=== PATIENT | male | born 1985 | race Caucasian/White ===

== ENCOUNTER 2020-02-07 11:45 | Inpatient (IN) | payer OTHER ==
[2020-02-07] MEDS ORDERED: IBUPROFEN 400 MG TABLET (FP) PO PRN (12:30)
[2020-02-07] MEDS ORDERED: LOPERAMIDE HCL 2 MG CAPSULE PO PRN (12:30)
[2020-02-07] MEDS ORDERED: ACETAMINOPHEN 325 MG TABLET (FP) PO PRN (12:30)
[2020-02-07] MEDS ORDERED: guaiFENesin 200 MG/10 ML 10 ML UNIT-DOSE CUPS PO PRN (12:30)
[2020-02-07] MEDS ORDERED: P-EPHED 60MG/TRIPROLIDI 2.5MG TABLET PO PRN (12:30)
[2020-02-07] MEDS ORDERED: NICOTINE POLACRILEX 2 MG GUM BUC PRN (12:30)
[2020-02-07] MEDS ORDERED: MAG HYDROX/AL HYDROX/SIMETH 30 ML UNIT-DOSE CUP PO PRN (12:30)
[2020-02-07] MEDS ORDERED: MAGNESIUM CITRATE 300 ML BOTTLE PO PRN (12:30)
[2020-02-07] MEDS ORDERED: MAGNESIUM HYDROX 2400MG/30ML ORAL SUSPENSION 30 ML CUP PO PRN (12:30)
--- NOTE | 2020-02-07 12:30 | HP ---
[facility] Rehab Assess/Revision - Admission History Admitted to Rehab from: [facility] Date of Admission to Rehab: 02/07/20 - Findings Detox History & Physical reviewed: Yes Concur with findings: Yes Comments/Additional Findings: trasnferred from detox to rehab admission as per protocol Inpatient Rehab Admission - Rehab Decision to Admit Inpatient rehab admission?: Yes - Initial Determination Are CD services needed?: Yes Free of communicable disease: Yes Not in need of hospitalization: Yes - Rehab Admission Criteria Previous failed treatment: Yes Poor recovery environment: Yes Comorbidities: Yes Lacks judgement: Yes Patient is meeting Inpatient Rehab admission criteria:: Yes
[2020-02-07] MEDS: THIAMINE HCL 100 MG TABLET (FP) PO SCH (21:50)
[2020-02-07] MEDS: GABAPENTIN 400 MG CAPSULE PO SCH (21:50)
[2020-02-07] MEDS: MELATONIN 5 MG TABLETS PO SCH (21:51)
[2020-02-08] MEDS: METHADONE HCL 10 MG TABLET PO SCH (06:12)
[2020-02-08] MEDS: GABAPENTIN 400 MG CAPSULE PO SCH ×2 (06:13→13:42)
[2020-02-08] MEDS: PRENATAL VITAMINS W/ FOLIC ACID TABLET (FP) PO SCH (10:25)
[2020-02-08] MEDS: NICOTINE 7 MG/24 HOURS TOPICAL PATCH TD SCH (10:26)
--- NOTE | 2020-02-08 17:23 | CONSULT ---
[facility] Psychiatric Consult - Data Date of interview: 02/08/20 Admission source: Transfer from [address] [place] [address]. Identifying data: Detoxification completed at [address] [place] [address]. Patient is now admitted to [address] for rehabilitation treatment for preservation of sobriety + management of co-morbid mood disorder. KARINA issues : alcohol, cocaine, benzodiazepine (xanax), nicotine. Patient is a 34 y/o male, single, father of one, homeless, unemployed and supported on undisclosed means. Substance Abuse History: Discussed with the patient. KARINA profile as follows : Smoking history: Current every day smoker. Approximately how many cigarettes per day: 5. Hx Chewing Tobacco Use: No. Initiated information on smoking cessation: No. - Substances abused. Alcohol. Substance route: Oral. Frequency: Daily. Amount used: 4-5 nips. Age of first use: 17. Date of last use: 02/02/20. Heroin. Substance route: Injection. Frequency: Daily. Amount used: 4-5 bags. Age of first use: 23. Date of last use: 02/02/20. Alprazolam (Xanax). Substance route: Oral. Frequency: Daily. Amount used: 4-5 sticks. Age of first use: 17. Date of last use: 02/02/20. Cocaine. Substance route: Inhalation. Frequency: Daily. Amount used: $40. Age of first use: 18. Date of last use: 02/01/20 Medical History: Patient endorses good general health. Psychiatric History: No change in longitudinal history since my examination of 02/06/20. Patient admits to a long standing history of mental illness (multiple psychiatric hospitalizations in [facility]). He is also known to [facility] for past admissions to their inpatient psychiatric services. Mr Adams endorses MDD + Anxiety disorder as his lifetime diagnoses. He is currently on methadone maintenance (110 mg/day) at the [facility] MMTP program in [facility]. The patient is concomitantly receiving psychiatric OPD care at [facility] in the [place] (prescribed clonazepam + gabapentin + effexor). He indicates that he has no recall of his doses (except for gabapentin 600 mg/tid). Last hospitalized in December 2019. Patient denies history of suicide attempts. Physical/Sexual Abuse/Trauma History: Patient denies. Additional Comment: Urine drug screen results: THC-Marijuana, SAMUEL-Cocaine, FEN- Fentanyl, MOP-Opiates, MTD-Methadone, BZO-Benzodiazepines. Noted. Mental Status Exam - Mental Status Exam Alert and Oriented to: Time, Place, Person Cognitive Function: Good Patient Appearance: Well Groomed Mood: Anxious, Hopeful Affect: Appropriate, Normal Range Patient Behavior: Appropriate, Cooperative Speech Pattern: Clear, Appropriate Voice Loudness: Normal Thought Process: Intact Thought Disorder: Not Present Hallucinations: Denies Suicidal Ideation: Denies Homicidal Ideation: Denies Insight/Judgement: Poor Sleep: Well Appetite: Good Gait/Station: Normal Psychiatric Findings - Problem List ([place] 1, 2,3) (1) Alcohol use disorder Current Visit: Yes Status: Chronic (2) Opioid dependence on agonist therapy Current Visit: Yes Status: Chronic (3) Cocaine use disorder Current Visit: Yes Status: Chronic (4) Nicotine dependence Current Visit: Yes Status: Chronic Qualifiers: Nicotine product type: cigarettes Substance use status: in withdrawal Qualified Code(s): F17.213 - Nicotine dependence, cigarettes, with withdrawal (5) History of depression Current Visit: Yes Status: Chronic (6) Anxiety disorder Current Visit: Yes Status: Chronic Comment: As per self-report. (7) Substance induced mood disorder Current Visit: Yes Status: Chronic - Initial Treatment Plan Initial Treatment Plan: Psychoeducation and rehabilitation. Sleep hygiene. Gabapentin is titrated to 600 mg po tid at patient's request. Consent (verbal) granted to MD. Slater.
[2020-02-08] MEDS: THIAMINE HCL 100 MG TABLET (FP) PO SCH (21:41)
[2020-02-08] MEDS: hydrOXYzine PAMOATE 25 MG CAPSULE (FP) PO PRN (21:41)
[2020-02-08] MEDS: GABAPENTIN 300 MG CAPSULE PO SCH (21:42)
[2020-02-08] MEDS: MELATONIN 5 MG TABLETS PO SCH (21:42)
[2020-02-09] MEDS ORDERED: METHADONE HCL 10 MG TABLET ONE (06:32)
[2020-02-09] MEDS: METHADONE 80 MG, METHADONE 30 MG PO SCH (06:32)
[2020-02-09] MEDS ORDERED: METHADONE HCL 40 MG DISPERSABLE TABLET ONE (06:32)
[2020-02-09] MEDS: hydrOXYzine PAMOATE 25 MG CAPSULE (FP) PO PRN ×4 (06:34→21:26)
[2020-02-09] MEDS: GABAPENTIN 300 MG CAPSULE PO SCH ×3 (06:34→21:26)
[2020-02-09] MEDS: METHADONE HCL 10 MG TABLET PO SCH (06:36)
[2020-02-09] MEDS: PRENATAL VITAMINS W/ FOLIC ACID TABLET (FP) PO SCH (10:51)
[2020-02-09] MEDS: NICOTINE 7 MG/24 HOURS TOPICAL PATCH TD SCH (10:51)
[2020-02-09] MEDS: THIAMINE HCL 100 MG TABLET (FP) PO SCH (21:26)
[2020-02-09] MEDS: MELATONIN 5 MG TABLETS PO SCH (21:26)
[2020-02-10] MEDS ORDERED: METHADONE HCL 40 MG DISPERSABLE TABLET ONE (03:31)
[2020-02-10] MEDS ORDERED: METHADONE HCL 10 MG TABLET ONE (03:31)
[2020-02-10] MEDS: METHADONE 80 MG, METHADONE 30 MG PO SCH (06:14)
[2020-02-10] MEDS: GABAPENTIN 300 MG CAPSULE PO SCH ×3 (06:14→21:07)
[2020-02-10] MEDS: hydrOXYzine PAMOATE 25 MG CAPSULE (FP) PO PRN ×3 (06:16→14:25)
[2020-02-10] MEDS: PRENATAL VITAMINS W/ FOLIC ACID TABLET (FP) PO SCH (10:08)
[2020-02-10] MEDS: NICOTINE 7 MG/24 HOURS TOPICAL PATCH TD SCH (10:08)
[2020-02-10] MEDS: MELATONIN 5 MG TABLETS PO SCH (21:07)
[2020-02-10] MEDS: THIAMINE HCL 100 MG TABLET (FP) PO SCH (21:07)
[2020-02-11] MEDS ORDERED: METHADONE HCL 10 MG TABLET ONE (03:26)
[2020-02-11] MEDS ORDERED: METHADONE HCL 40 MG DISPERSABLE TABLET ONE (03:26)
[2020-02-11] MEDS: hydrOXYzine PAMOATE 25 MG CAPSULE (FP) PO PRN ×3 (06:09→21:18)
[2020-02-11] MEDS: GABAPENTIN 300 MG CAPSULE PO SCH ×3 (06:10→21:17)
[2020-02-11] MEDS: METHADONE 80 MG, METHADONE 30 MG PO SCH (06:13)
[2020-02-11] MEDS: PRENATAL VITAMINS W/ FOLIC ACID TABLET (FP) PO SCH (09:12)
[2020-02-11] MEDS: NICOTINE 7 MG/24 HOURS TOPICAL PATCH TD SCH (09:12)
[2020-02-11] MEDS: MELATONIN 5 MG TABLETS PO SCH (21:17)
[2020-02-11] MEDS: THIAMINE HCL 100 MG TABLET (FP) PO SCH (21:17)
[2020-02-12] MEDS ORDERED: METHADONE HCL 40 MG DISPERSABLE TABLET ONE (03:26)
[2020-02-12] MEDS ORDERED: METHADONE HCL 10 MG TABLET ONE (03:26)
[2020-02-12] MEDS: GABAPENTIN 300 MG CAPSULE PO SCH ×3 (06:00→21:38)
[2020-02-12] MEDS: hydrOXYzine PAMOATE 25 MG CAPSULE (FP) PO PRN ×2 (06:00→21:39)
[2020-02-12] MEDS: METHADONE 80 MG, METHADONE 30 MG PO SCH (06:00)
[2020-02-12] MEDS: NICOTINE 7 MG/24 HOURS TOPICAL PATCH TD SCH (09:21)
[2020-02-12] MEDS: PRENATAL VITAMINS W/ FOLIC ACID TABLET (FP) PO SCH (09:21)
[2020-02-12] MEDS: MELATONIN 5 MG TABLETS PO SCH (21:38)
[2020-02-12] MEDS: THIAMINE HCL 100 MG TABLET (FP) PO SCH (21:38)
[2020-02-13] MEDS ORDERED: METHADONE HCL 10 MG TABLET ONE (05:58)
[2020-02-13] MEDS ORDERED: METHADONE HCL 40 MG DISPERSABLE TABLET ONE (05:58)
[2020-02-13] MEDS: GABAPENTIN 300 MG CAPSULE PO SCH ×3 (06:03→21:41)
[2020-02-13] MEDS: METHADONE 80 MG, METHADONE 30 MG PO SCH (06:04)
[2020-02-13] MEDS: hydrOXYzine PAMOATE 25 MG CAPSULE (FP) PO PRN ×4 (06:04→21:41)
[2020-02-13] MEDS: NICOTINE 7 MG/24 HOURS TOPICAL PATCH TD SCH (10:12)
[2020-02-13] MEDS: PRENATAL VITAMINS W/ FOLIC ACID TABLET (FP) PO SCH (10:12)
[2020-02-13] MEDS: MELATONIN 5 MG TABLETS PO SCH (21:40)
[2020-02-13] MEDS: THIAMINE HCL 100 MG TABLET (FP) PO SCH (21:41)
[2020-02-14] MEDS ORDERED: METHADONE HCL 40 MG DISPERSABLE TABLET ONE (05:44)
[2020-02-14] MEDS ORDERED: METHADONE HCL 10 MG TABLET ONE (05:44)
[2020-02-14] MEDS: GABAPENTIN 300 MG CAPSULE PO SCH ×3 (05:56→22:37)
[2020-02-14] MEDS: hydrOXYzine PAMOATE 25 MG CAPSULE (FP) PO PRN ×3 (05:57→13:17)
[2020-02-14] MEDS: METHADONE 80 MG, METHADONE 30 MG PO SCH (05:57)
[2020-02-14] MEDS: NICOTINE 7 MG/24 HOURS TOPICAL PATCH TD SCH (09:37)
[2020-02-14] MEDS: PRENATAL VITAMINS W/ FOLIC ACID TABLET (FP) PO SCH (09:37)
[2020-02-14] MEDS: THIAMINE HCL 100 MG TABLET (FP) PO SCH (22:37)
[2020-02-14] MEDS: MELATONIN 5 MG TABLETS PO SCH (22:37)
[2020-02-15] MEDS ORDERED: METHADONE HCL 10 MG TABLET ONE (03:25)
[2020-02-15] MEDS ORDERED: METHADONE HCL 40 MG DISPERSABLE TABLET ONE (03:25)
[2020-02-15] MEDS: METHADONE 80 MG, METHADONE 30 MG PO SCH (05:55)
[2020-02-15] MEDS: GABAPENTIN 300 MG CAPSULE PO SCH ×3 (06:05→21:18)
[2020-02-15] MEDS: PRENATAL VITAMINS W/ FOLIC ACID TABLET (FP) PO SCH (10:05)
[2020-02-15] MEDS: NICOTINE 7 MG/24 HOURS TOPICAL PATCH TD SCH (10:05)
[2020-02-15] MEDS: hydrOXYzine PAMOATE 25 MG CAPSULE (FP) PO PRN ×2 (10:05→21:18)
[2020-02-15] MEDS: MELATONIN 5 MG TABLETS PO SCH (21:18)
[2020-02-15] MEDS: THIAMINE HCL 100 MG TABLET (FP) PO SCH (21:18)
[2020-02-16] MEDS ORDERED: METHADONE HCL 40 MG DISPERSABLE TABLET ONE (04:03)
[2020-02-16] MEDS ORDERED: METHADONE HCL 10 MG TABLET ONE (04:03)
[2020-02-16] MEDS: GABAPENTIN 300 MG CAPSULE PO SCH ×3 (06:13→21:30)
[2020-02-16] MEDS: METHADONE 80 MG, METHADONE 30 MG PO SCH (06:14)
[2020-02-16] MEDS: PRENATAL VITAMINS W/ FOLIC ACID TABLET (FP) PO SCH (09:14)
[2020-02-16] MEDS: hydrOXYzine PAMOATE 25 MG CAPSULE (FP) PO PRN ×3 (09:14→21:30)
[2020-02-16] MEDS: NICOTINE 7 MG/24 HOURS TOPICAL PATCH TD SCH (09:15)
[2020-02-16] MEDS: MELATONIN 5 MG TABLETS PO SCH (21:30)
[2020-02-16] MEDS: THIAMINE HCL 100 MG TABLET (FP) PO SCH (21:30)
[2020-02-17] MEDS ORDERED: METHADONE HCL 40 MG DISPERSABLE TABLET ONE (02:32)
[2020-02-17] MEDS ORDERED: METHADONE HCL 10 MG TABLET ONE (02:32)
[2020-02-17] MEDS: GABAPENTIN 300 MG CAPSULE PO SCH ×3 (06:06→21:30)
[2020-02-17] MEDS: METHADONE 80 MG, METHADONE 30 MG PO SCH (06:07)
[2020-02-17] MEDS: NICOTINE 7 MG/24 HOURS TOPICAL PATCH TD SCH (10:37)
[2020-02-17] MEDS: PRENATAL VITAMINS W/ FOLIC ACID TABLET (FP) PO SCH (10:37)
[2020-02-17] MEDS: hydrOXYzine PAMOATE 25 MG CAPSULE (FP) PO PRN ×3 (10:38→21:30)
[2020-02-17] MEDS: MELATONIN 5 MG TABLETS PO SCH (21:30)
[2020-02-17] MEDS: THIAMINE HCL 100 MG TABLET (FP) PO SCH (21:30)
[2020-02-18] MEDS ORDERED: METHADONE HCL 10 MG TABLET ONE (04:02)
[2020-02-18] MEDS ORDERED: METHADONE HCL 40 MG DISPERSABLE TABLET ONE (04:03)
[2020-02-18] MEDS: GABAPENTIN 300 MG CAPSULE PO SCH ×3 (06:06→21:43)
[2020-02-18] MEDS: METHADONE 80 MG, METHADONE 30 MG PO SCH (06:07)
[2020-02-18] MEDS: NICOTINE 7 MG/24 HOURS TOPICAL PATCH TD SCH (10:29)
[2020-02-18] MEDS: hydrOXYzine PAMOATE 25 MG CAPSULE (FP) PO PRN ×3 (10:29→21:43)
[2020-02-18] MEDS: PRENATAL VITAMINS W/ FOLIC ACID TABLET (FP) PO SCH (10:29)
--- NOTE | 2020-02-18 16:07 | PN ---
Psychiatric Progress Note Vital Signs: Vital Signs Period Temp Pulse Resp BP Sys/Quiñones Pulse Ox Last 24 Hr 97.8 F 77 18 125/81 95-96 Date of Session: 02/18/20 Chief Complaint:: "I'm sleeping poorly." HPI: Patient admitted to for alcohol, cocaine, benzodiazepine (xanax), nicotine dependence. Consultation ordered due to patient c/o difficulty sleeping. ROS: Patient is ambulatory, alert +oriented X3. Current Medications: Active Medications Generic Name Dose Route Start Last Admin Trade Name Freq PRN Reason Stop Dose Admin Acetaminophen 650 mg 02/07/20 12:30 02/08/20 23:32 Tylenol - PO 650 mg Q4H PRN Administration FEVER Al Hydroxide/Mg Hydroxide 30 ml 02/07/20 12:30 Mylanta Oral Suspension - PO Q6H PRN DYSPEPSIA Gabapentin 600 mg 02/08/20 22:00 02/18/20 14:31 Neurontin - PO 600 mg TID JORY Administration Guaifenesin 10 ml 02/07/20 12:30 Robitussin - PO Q6H PRN COUGH Hydroxyzine Pamoate 25 mg 02/08/20 11:28 02/18/20 14:31 Vistaril - PO 25 mg Q4H PRN Administration ANXIETY Ibuprofen 400 mg 02/07/20 12:30 Motrin - PO Q6H PRN Pain level 4-6 Loperamide HCl 4 mg 02/07/20 12:30 Imodium - PO Q6H PRN DIARRHEA Magnesium Citrate 300 ml 02/07/20 12:30 Citroma - PO Q48H PRN CONSTIPATION Magnesium Hydroxide 30 ml 02/07/20 12:30 Milk Of Magnesia - PO DAILY PRN CONSTIPATION Melatonin 5 mg 02/07/20 22:00 02/17/20 21:30 Melatonin PO 5 mg HS JORY Administration Methadone HCl 80 mg/ Methadone 110 mg 02/16/20 06:00 02/18/20 06:07 HCl 30 mg PO 02/23/20 05:59 110 mg DAILY@0600 JORY Administration Nicotine 7 mg 02/08/20 10:00 02/18/20 10:29 Nicoderm Patch - TD Not Given DAILY JORY Nicotine Polacrilex 2 mg 02/07/20 12:30 Nicorette Gum - BUC Q2H PRN NICOTINE REPLACEMENT RX Multivit/Folic Acid/Iron 1 tab 02/08/20 10:00 02/18/20 10:29 Vitamins (Sjr) - PO 1 tab DAILY JORY Administration Pseudoephedrine/Triprolidine 1 combo 02/07/20 12:30 Actifed - PO TID PRN NASAL CONGESTION Thiamine HCl 100 mg 02/07/20 22:00 02/17/20 21:30 Vitamin B1 - PO 100 mg HS JORY Administration Medication(s) Change(s): Yes. Will order belsomra 15mg HS. Current Side Effect: No Lab tests ordered: No Lab tests reviewed: Yes Provider note:: Chart reviewed. Patient seen by Dr. Tijerina. Dr. Tijerina note read and appreciated. Patient reports poor sleep. Will order Belsomra 15mg HS PRN. Patient also educated on the importance of proper sleep hygiene. Patient satisifed and receptive to feedback. Benefits and side effects of medication discussed. Verbal consent given. Total face to face time:: 20 Mental Status Exam - Mental Status Exam Alert and Oriented to: Time, Place, Person Cognitive Function: Good Patient Appearance: Well Groomed Mood: Hopeful Affect: Appropriate Patient Behavior: Appropriate, Cooperative Speech Pattern: Appropriate Voice Loudness: Normal Thought Process: Goal Oriented Thought Disorder: Not Present Hallucinations: Denies Suicidal Ideation: Denies Homicidal Ideation: Denies Insight/Judgement: Poor Sleep: Poorly Appetite: Fair Muscle strength/Tone: Normal Gait/Station: Normal Psychiatric Treatment Plan - Problem List (1) Alcohol use disorder Comment: .. (2) History of depression Comment: .. (3) Insomnia Comment: .. (4) Opioid dependence on agonist therapy Comment: .. (5) Cocaine use disorder Comment: .. (6) Nicotine dependence Qualifiers: Nicotine product type: cigarettes Substance use status: uncomplicated Qualified Code(s): F17.210 - Nicotine dependence, cigarettes, uncomplicated Comment: ..
[2020-02-18] MEDS: THIAMINE HCL 100 MG TABLET (FP) PO SCH (21:43)
[2020-02-18] MEDS: MELATONIN 5 MG TABLETS PO SCH (21:44)
[2020-02-18] MEDS: SUVOREXANT 15 MG TABLET PO PRN (21:45)
[2020-02-19] MEDS ORDERED: METHADONE HCL 10 MG TABLET ONE (05:55)
[2020-02-19] MEDS ORDERED: METHADONE HCL 40 MG DISPERSABLE TABLET ONE (05:55)
[2020-02-19] MEDS: GABAPENTIN 300 MG CAPSULE PO SCH ×3 (06:09→21:49)
[2020-02-19] MEDS: METHADONE 80 MG, METHADONE 30 MG PO SCH (06:10)
[2020-02-19] MEDS: NICOTINE 7 MG/24 HOURS TOPICAL PATCH TD SCH (10:30)
[2020-02-19] MEDS: PRENATAL VITAMINS W/ FOLIC ACID TABLET (FP) PO SCH (10:30)
[2020-02-19] MEDS: hydrOXYzine PAMOATE 25 MG CAPSULE (FP) PO PRN ×3 (10:30→21:50)
[2020-02-19] MEDS: MELATONIN 5 MG TABLETS PO SCH (21:49)
[2020-02-19] MEDS: THIAMINE HCL 100 MG TABLET (FP) PO SCH (21:50)
[2020-02-19] MEDS: SUVOREXANT 15 MG TABLET PO PRN (21:50)
[2020-02-20] MEDS ORDERED: METHADONE HCL 40 MG DISPERSABLE TABLET ONE (03:26)
[2020-02-20] MEDS ORDERED: METHADONE HCL 10 MG TABLET ONE (03:26)
[2020-02-20] MEDS: GABAPENTIN 300 MG CAPSULE PO SCH ×3 (05:57→21:23)
[2020-02-20] MEDS: METHADONE 80 MG, METHADONE 30 MG PO SCH (05:58)
[2020-02-20] MEDS: PRENATAL VITAMINS W/ FOLIC ACID TABLET (FP) PO SCH (10:10)
[2020-02-20] MEDS: hydrOXYzine PAMOATE 25 MG CAPSULE (FP) PO PRN (10:10)
[2020-02-20] MEDS: NICOTINE 7 MG/24 HOURS TOPICAL PATCH TD SCH (10:10)
[2020-02-20] MEDS: SUVOREXANT 15 MG TABLET PO PRN (21:24)
[2020-02-20] MEDS: MELATONIN 5 MG TABLETS PO SCH (21:24)
[2020-02-20] MEDS: THIAMINE HCL 100 MG TABLET (FP) PO SCH (21:26)
[2020-02-21] MEDS ORDERED: METHADONE HCL 40 MG DISPERSABLE TABLET ONE (03:21)
[2020-02-21] MEDS ORDERED: METHADONE HCL 10 MG TABLET ONE (03:21)
[2020-02-21] MEDS: GABAPENTIN 300 MG CAPSULE PO SCH ×3 (06:12→21:28)
[2020-02-21] MEDS: METHADONE 80 MG, METHADONE 30 MG PO SCH (06:12)
[2020-02-21] MEDS: PRENATAL VITAMINS W/ FOLIC ACID TABLET (FP) PO SCH (10:20)
[2020-02-21] MEDS: NICOTINE 7 MG/24 HOURS TOPICAL PATCH TD SCH (10:20)
[2020-02-21] MEDS: hydrOXYzine PAMOATE 25 MG CAPSULE (FP) PO PRN ×2 (10:20→21:28)
--- NOTE | 2020-02-21 11:20 | PN ---
[facility] Progress Note Note: Psychiatric nurse practitioner note: Belsomra 15mg HS renewed X3 days. Verbal consent given.
--- NOTE | 2020-02-21 14:35 | PN ---
[facility] Progress Note Note: Psychiatric nurse practitioner note: Patient scheduled for discharge tomorrow (02/22/20). A 30 day prescription of Gabapentin 600mg TID was electronically sent to [facility] @ [facility] [id number].
[2020-02-21] MEDS: MELATONIN 5 MG TABLETS PO SCH (21:28)
[2020-02-21] MEDS: THIAMINE HCL 100 MG TABLET (FP) PO SCH (21:28)
[2020-02-21] MEDS ORDERED: SUVOREXANT 15 MG TABLET PO PRN (22:00)
[2020-02-22] MEDS ORDERED: METHADONE HCL 10 MG TABLET ONE (05:13)
[2020-02-22] MEDS ORDERED: METHADONE HCL 40 MG DISPERSABLE TABLET ONE (05:13)
[2020-02-22] MEDS: GABAPENTIN 300 MG CAPSULE PO SCH (06:24)
[2020-02-22] MEDS: METHADONE 80 MG, METHADONE 30 MG PO SCH (06:25)
[2020-02-22 07:36] VITALS: BP 125/82; PULSE 68; TEMP 97.7
--- NOTE | 2020-02-22 09:31 | DS ---
[facility] Rehab Discharge Summary - [facility] Rehab Discharge Summary Admission Date: 02/07/20 Discharge Date: 02/22/20 - History Present History: Alcohol dependence, Cocaine dependence, MMTP, Sedative dependence Pertinent Past History: Mood disorder - Discharge Physical Exam Vital Signs: Vital Signs Temperature 97.7 F 02/22/20 07:34 Pulse Rate 68 02/22/20 07:34 Respiratory Rate 18 02/22/20 07:34 Blood Pressure 125/82 02/22/20 07:34 O2 Sat by Pulse Oximetry (%) 95 02/22/20 07:34 General:WDWN male, alert o x 3, cardiac:s1 s2, rrr lungs:ctab MSK:Active FROM,all limbs; oob ambulates with steady gait Skin: Pertinent Admission Physical Exam Findings: S/P Detox Unremarkable - Treatment Discharge Condition: Discharge condition good, Rehabilitated safely, Responded well, Outpatient referral accepted Hospital Course: CD aftercare referral accepted to [facility] - Medication Discharge Medications: Ambulatory Orders Methadone [Dolophine -] 110 mg PO DAILY 02/02/20 Gabapentin 400 mg PO TID 02/07/20 Gabapentin 600 mg PO TID #90 tablet 02/21/20 - Medication-Assisted Treatment (MAT) Medication-Assisted Treatment (MAT): No - Discharge Instructions Diet, activity, other medical instructions: Diet:Regular Activity: oob ad adan Other medical instructions:follow up with CD aftercare as directed. Follow up with your primary care provider(s) at [place], [place]. - Diagnosis (1) Sedative, hypnotic or anxiolytic dependence, uncomplicated Status: Chronic (2) Alcohol use disorder Status: Chronic (3) Cocaine use disorder Status: Chronic (4) Methadone maintenance therapy patient Status: Chronic (5) Nicotine dependence Status: Chronic Qualifiers: Nicotine product type: cigarettes Substance use status: uncomplicated Qualified Code(s): F17.210 - Nicotine dependence, cigarettes, uncomplicated - Follow-up Referral Minutes to complete discharge: 25 - AMA Did Patient Leave Against Medical Advice: No
[2020-02-22] MEDS: PRENATAL VITAMINS W/ FOLIC ACID TABLET (FP) PO SCH (10:40)
[2020-02-22] MEDS: NICOTINE 7 MG/24 HOURS TOPICAL PATCH TD SCH (10:40)
[2020-02-22] MEDS: hydrOXYzine PAMOATE 25 MG CAPSULE (FP) PO PRN (10:40)
== END 2020-02-22 10:50 | disposition home or self-care (01) | DRG 772 ==
LOC: YASAS 11:45 → Y5N 11:46
PROVIDERS: ADMIT Allergy & Immunology; ATTEND Allergy & Immunology
PROC: HZ42ZZZ Group Counseling for Substance Abuse Treatment, Cognitive-Behavioral (ICD-10-PCS; principal; 2020-02-07)
DX: F10.20 Alcohol dependence, uncomplicated (principal); F14.20 Cocaine dependence, uncomplicated; F13.20 Sedative, hypnotic or anxiolytic dependence, uncomplicated; F11.20 Opioid dependence, uncomplicated; F17.210 Nicotine dependence, cigarettes, uncomplicated; F19.24 Other psychoactive substance dependence with psychoactive substance-induced mood disorder; F41.9 Anxiety disorder, unspecified; F32.9 Major depressive disorder, single episode, unspecified; Z88.0 Allergy status to penicillin; Z56.0 Unemployment, unspecified; Z59.0 Homelessness

== ENCOUNTER 2020-12-07 23:31 | Inpatient (IN) | payer OTHER ==
[2020-12-08] MEDS ORDERED: MAGNESIUM CITRATE 300 ML BOTTLE PO PRN (00:58)
[2020-12-08] MEDS ORDERED: ACETAMINOPHEN 325 MG TABLET (FP) PO PRN ×2 (00:58)
[2020-12-08] MEDS ORDERED: MAGNESIUM HYDROX 2400MG/30ML ORAL SUSPENSION 30 ML CUP PO PRN (00:58)
[2020-12-08] MEDS ORDERED: ONDANSETRON *ODT* 4 MG TABLET SL PRN (00:58)
[2020-12-08] MEDS ORDERED: NALOXONE (NARCAN) HCL 4 MG/0.1 ML SPRAY NS PRN (00:58)
[2020-12-08] MEDS ORDERED: IBUPROFEN 400 MG TABLET (FP) PO PRN (00:58)
[2020-12-08] MEDS ORDERED: NALOXONE HCL 0.4 MG/ML VIAL IM PRN (00:58)
[2020-12-08] MEDS ORDERED: DICYCLOMINE HCL 10 MG CAPSULE PO PRN (00:58)
[2020-12-08] MEDS ORDERED: P-EPHED 60MG/TRIPROLIDI 2.5MG TABLET PO PRN (00:58)
[2020-12-08] MEDS ORDERED: guaiFENesin 200 MG/10 ML 10 ML UNIT-DOSE CUPS PO PRN (00:58)
[2020-12-08] MEDS ORDERED: MENTHOL/PHENOL 1 EACH UD MM PRN (00:58)
[2020-12-08] MEDS ORDERED: BISMUTH SUBSALICYLATE 524 MG/30 ML PO PRN (00:58)
[2020-12-08] MEDS ORDERED: MAG HYDROX/AL HYDROX/SIMETH 30 ML UNIT-DOSE CUP PO PRN (00:58)
[2020-12-08 02:19] VITALS: BMI 30.3
[2020-12-08] MEDS ORDERED: IBUPROFEN 400 MG TABLET (FP) PO ONE (02:45)
[2020-12-08] MEDS ORDERED: diazePAM 5 MG TABLET ONE (09:03)
[2020-12-08] MEDS ORDERED: METHOCARBAMOL 500 MG TABLET ONE (09:08)
[2020-12-08] MEDS: diazePAM 5 MG TABLET PO PRN (09:08)
[2020-12-08] MEDS: METHOCARBAMOL 500 MG TABLET PO PRN (09:09)
[2020-12-08] MEDS: METHADONE HCL 10 MG TABLET PO SCH (10:39)
[2020-12-08] MEDS: hydrOXYzine PAMOATE 25 MG CAPSULE (FP) PO PRN ×2 (10:40→17:20)
[2020-12-08] MEDS: diazePAM 5 MG TABLET PO SCH ×3 (10:41→22:22)
[2020-12-08] MEDS: PRENATAL VITAMINS W/ FOLIC ACID TABLET (FP) PO SCH (10:42)
[2020-12-08 14:16] LABS: HEMATOCRIT 40.6 % (35.4-49); MCH 27.3 pg (25.7-33.7); MCHC 32.1 g/dl (32.0-35.9); MEAN CELL VOLUME 85.1 fl (80-96); MEAN PLT VOLUME 8.2 fl (7.5-11.1); PLATELET COUNT 308 10^3/uL (134-434); RBC 4.77 M/mm3 (4.00-5.60); RDW 16.3 % (11.9-15.9); WHITE BLOOD COUNT 10.5 K/mm3 (4.0-10.0)
[2020-12-08 14:19] LABS: ALBUMIN 3.9 g/dl (3.4-5.0); BLOOD UREA NITROGEN 20.4 mg/dL (7-18)
[2020-12-08 14:24] LABS: BILIRUBIN,TOTAL 0.5 mg/dL (0.2-1); TOT PROT 7.8 g/dl (6.4-8.2)
[2020-12-08] MEDS ORDERED: MELATONIN 5 MG TABLETS PO SCH (22:00)
[2020-12-08] MEDS: SUVOREXANT 10 MG TABLET PO PRN (22:21)
[2020-12-08] MEDS: THIAMINE HCL 100 MG TABLET (FP) PO SCH (22:22)
[2020-12-09] MEDS: METHADONE HCL 10 MG TABLET PO SCH (06:03)
[2020-12-09] MEDS: diazePAM 5 MG TABLET PO SCH ×4 (06:03→22:29)
[2020-12-09] MEDS: METHOCARBAMOL 500 MG TABLET PO PRN ×2 (09:23→17:06)
[2020-12-09] MEDS: hydrOXYzine PAMOATE 25 MG CAPSULE (FP) PO PRN ×2 (09:23→17:05)
[2020-12-09] MEDS: PRENATAL VITAMINS W/ FOLIC ACID TABLET (FP) PO SCH (10:08)
[2020-12-09] MEDS: SUVOREXANT 10 MG TABLET PO PRN (22:28)
[2020-12-09] MEDS: THIAMINE HCL 100 MG TABLET (FP) PO SCH (22:30)
[2020-12-10] MEDS: METHADONE HCL 10 MG TABLET PO SCH (05:22)
[2020-12-10] MEDS: diazePAM 5 MG TABLET PO SCH ×3 (05:22→22:12)
[2020-12-10] MEDS: METHOCARBAMOL 500 MG TABLET PO PRN ×3 (05:23→22:12)
[2020-12-10] MEDS: PRENATAL VITAMINS W/ FOLIC ACID TABLET (FP) PO SCH (10:10)
[2020-12-10] MEDS: hydrOXYzine PAMOATE 25 MG CAPSULE (FP) PO PRN ×2 (10:11→22:13)
[2020-12-10] MEDS: diazePAM 5 MG TABLET PO PRN (15:05)
[2020-12-10] MEDS: SUVOREXANT 10 MG TABLET PO PRN (22:11)
[2020-12-10] MEDS: THIAMINE HCL 100 MG TABLET (FP) PO SCH (22:11)
[2020-12-11] MEDS: METHADONE HCL 10 MG TABLET PO SCH (05:41)
[2020-12-11] MEDS: METHOCARBAMOL 500 MG TABLET PO PRN (05:41)
[2020-12-11] MEDS: diazePAM 5 MG TABLET PO SCH ×2 (05:41→17:23)
[2020-12-11] MEDS: PRENATAL VITAMINS W/ FOLIC ACID TABLET (FP) PO SCH (10:01)
[2020-12-11] MEDS: cloNIDine HCL 0.1 MG TABLET PO PRN ×2 (10:03→17:24)
[2020-12-11] MEDS: SUVOREXANT 10 MG TABLET PO PRN (21:55)
[2020-12-11] MEDS: hydrOXYzine PAMOATE 25 MG CAPSULE (FP) PO PRN (22:07)
[2020-12-11] MEDS: THIAMINE HCL 100 MG TABLET (FP) PO SCH (22:07)
[2020-12-12] MEDS: METHADONE HCL 10 MG TABLET PO SCH (05:44)
[2020-12-12] MEDS: METHOCARBAMOL 500 MG TABLET PO PRN ×2 (05:44→22:34)
[2020-12-12] MEDS ORDERED: diazePAM 5 MG TABLET PO ONE (06:00)
[2020-12-12] MEDS: PRENATAL VITAMINS W/ FOLIC ACID TABLET (FP) PO SCH (10:11)
[2020-12-12] MEDS: hydrOXYzine PAMOATE 25 MG CAPSULE (FP) PO PRN ×2 (10:13→22:34)
[2020-12-12] MEDS ORDERED: COVID-19 VAC,AD26(JANSSEN)/PF 0.5 ML IM ONE (11:00)
[2020-12-12] MEDS: THIAMINE HCL 100 MG TABLET (FP) PO SCH (22:34)
[2020-12-13] MEDS: METHADONE HCL 10 MG TABLET PO SCH (05:43)
[2020-12-13] MEDS: METHOCARBAMOL 500 MG TABLET PO PRN (05:44)
[2020-12-13 09:17] VITALS: BP 129/74; PULSE 91; TEMP 97
[2020-12-13] MEDS: PRENATAL VITAMINS W/ FOLIC ACID TABLET (FP) PO SCH (10:21)
[2020-12-13] MEDS: hydrOXYzine PAMOATE 25 MG CAPSULE (FP) PO PRN (10:22)
[2020-12-14 12:41] LABS: SARS-CoV-2 NAA NOT DETECTED
== END 2020-12-13 11:10 | disposition home or self-care (01) | DRG 773 ==
LOC: YASAS 23:31 → Y6N 12-08 09:30
PROVIDERS: ADMIT Allergy & Immunology; ATTEND Allergy & Immunology
PROC: HZ2ZZZZ Detoxification Services for Substance Abuse Treatment (ICD-10-PCS; principal; 2020-12-08)
DX: F10.230 Alcohol dependence with withdrawal, uncomplicated (principal); F11.20 Opioid dependence, uncomplicated; F13.20 Sedative, hypnotic or anxiolytic dependence, uncomplicated; F14.20 Cocaine dependence, uncomplicated; F12.20 Cannabis dependence, uncomplicated; F19.24 Other psychoactive substance dependence with psychoactive substance-induced mood disorder; F19.282 Other psychoactive substance dependence with psychoactive substance-induced sleep disorder; F33.9 Major depressive disorder, recurrent, unspecified; L90.5 Scar conditions and fibrosis of skin; Z87.891 Personal history of nicotine dependence; Z88.0 Allergy status to penicillin; Z59.0 Homelessness
CPT/HCPCS: 0031A; 36415; 80053; 85027; 86780; 91303; C9803; J0735; U0003; U0005

== ENCOUNTER 2021-02-10 19:38 | Inpatient (IN) | payer OTHER ==
[2021-02-10 23:03] VITALS: BMI 31.6
[2021-02-10] MEDS ORDERED: IBUPROFEN 400 MG TABLET (FP) PO PRN (23:18)
[2021-02-10] MEDS ORDERED: MAGNESIUM CITRATE 300 ML BOTTLE PO PRN (23:18)
[2021-02-10] MEDS ORDERED: MENTHOL/PHENOL 1 EACH UD MM PRN (23:18)
[2021-02-10] MEDS ORDERED: BISMUTH SUBSALICYLATE 524 MG/30 ML PO PRN (23:18)
[2021-02-10] MEDS ORDERED: ONDANSETRON *ODT* 4 MG TABLET SL PRN (23:18)
[2021-02-10] MEDS ORDERED: ACETAMINOPHEN 325 MG TABLET (FP) PO PRN (23:18)
[2021-02-10] MEDS ORDERED: MAG HYDROX/AL HYDROX/SIMETH 30 ML UNIT-DOSE CUP PO PRN (23:18)
[2021-02-10] MEDS ORDERED: MAGNESIUM HYDROX 2400MG/30ML ORAL SUSPENSION 30 ML CUP PO PRN (23:18)
[2021-02-11] MEDS: METHOCARBAMOL 500 MG TABLET PO PRN ×3 (03:31→17:50)
[2021-02-11] MEDS: ACETAMINOPHEN 325 MG TABLET (FP) PO PRN (03:31)
[2021-02-11] MEDS: hydrOXYzine PAMOATE 25 MG CAPSULE (FP) PO PRN (03:31)
[2021-02-11] MEDS: PRENATAL VITAMINS W/ FOLIC ACID TABLET (FP) PO SCH (09:51)
[2021-02-11] MEDS ORDERED: LORazepam 0.5 MG TABLET PO ONE (10:04)
[2021-02-11] MEDS: LORazepam 1 MG TABLET PO SCH ×3 (10:20→22:15)
[2021-02-11] MEDS: methaDONE HCL 40 MG DISPERSABLE TABLET PO SCH (10:22)
[2021-02-11 15:29] LABS: ALBUMIN 3.3 g/dl (3.4-5.0); BLOOD UREA NITROGEN 20.4 mg/dL (7-18); CALCIUM 8.5 mg/dL (8.5-10.1)
[2021-02-11 15:32] LABS: CREATININE 0.9 mg/dL (0.55-1.3)
[2021-02-11 15:33] LABS: BILIRUBIN,TOTAL 0.1 mg/dL (0.2-1); TOT PROT 7.1 g/dl (6.4-8.2)
[2021-02-11 15:35] LABS: HEMOGLOBIN 11.6 GM/dL (11.7-16.9); MCH 28.8 pg (25.7-33.7); MEAN CELL VOLUME 87.3 fl (80-96); MEAN PLT VOLUME 8.2 fl (7.5-11.1); PLATELET COUNT 210 10^3/uL (134-434); RBC 4.01 M/mm3 (4.00-5.60); RDW 17.1 % (11.9-15.9); WHITE BLOOD COUNT 6.4 K/mm3 (4.0-10.0)
[2021-02-11 16:13] LABS: HIV INTERPRETATION NEGATIVE (NEGATIVE)
[2021-02-11] MEDS: THIAMINE HCL 100 MG TABLET (FP) PO SCH (22:15)
[2021-02-11] MEDS: SUVOREXANT 10 MG TABLET PO PRN (22:15)
[2021-02-11] MEDS: MELATONIN 5 MG TABLETS PO SCH (22:16)
[2021-02-12] MEDS: methaDONE HCL 40 MG DISPERSABLE TABLET PO SCH (05:17)
[2021-02-12] MEDS: LORazepam 1 MG TABLET PO SCH (05:17)
[2021-02-12] MEDS: METHOCARBAMOL 500 MG TABLET PO PRN ×2 (05:18→17:44)
[2021-02-12] MEDS: LORazepam 0.5 MG TABLET PO SCH ×3 (06:12→17:42)
[2021-02-12] MEDS ORDERED: LORazepam 0.5 MG TABLET PO PRN (08:48)
[2021-02-12] MEDS: PRENATAL VITAMINS W/ FOLIC ACID TABLET (FP) PO SCH (10:17)
[2021-02-12] MEDS: hydrOXYzine PAMOATE 25 MG CAPSULE (FP) PO PRN (10:18)
[2021-02-12] MEDS ORDERED: diazePAM 5 MG TABLET PO ONE (19:52)
[2021-02-12] MEDS: diazePAM 5 MG TABLET PO SCH (22:24)
[2021-02-12] MEDS: MELATONIN 5 MG TABLETS PO SCH (22:25)
[2021-02-12] MEDS: THIAMINE HCL 100 MG TABLET (FP) PO SCH (22:25)
[2021-02-12] MEDS: SUVOREXANT 10 MG TABLET PO PRN (22:26)
[2021-02-13] MEDS ORDERED: LORazepam 0.5 MG TABLET PO ONE (05:00)
[2021-02-13] MEDS: METHOCARBAMOL 500 MG TABLET PO PRN ×2 (05:37→22:12)
[2021-02-13] MEDS: methaDONE HCL 40 MG DISPERSABLE TABLET PO SCH (05:37)
[2021-02-13] MEDS: diazePAM 5 MG TABLET PO SCH ×4 (05:37→22:12)
[2021-02-13] MEDS: PRENATAL VITAMINS W/ FOLIC ACID TABLET (FP) PO SCH (10:10)
[2021-02-13] MEDS: diazePAM 5 MG TABLET PO PRN (13:48)
[2021-02-13] MEDS: ACETAMINOPHEN 325 MG TABLET (FP) PO PRN (17:44)
[2021-02-13] MEDS: THIAMINE HCL 100 MG TABLET (FP) PO SCH (22:12)
[2021-02-13] MEDS: SUVOREXANT 10 MG TABLET PO PRN (22:12)
[2021-02-13] MEDS: MELATONIN 5 MG TABLETS PO SCH (22:12)
[2021-02-14] MEDS: methaDONE HCL 40 MG DISPERSABLE TABLET PO SCH (05:09)
[2021-02-14] MEDS: diazePAM 5 MG TABLET PO SCH ×3 (05:09→22:03)
[2021-02-14] MEDS: PRENATAL VITAMINS W/ FOLIC ACID TABLET (FP) PO SCH (10:08)
[2021-02-14] MEDS: METHOCARBAMOL 500 MG TABLET PO PRN (10:09)
[2021-02-14] MEDS: diazePAM 5 MG TABLET PO PRN (10:09)
[2021-02-14] MEDS: SUVOREXANT 10 MG TABLET PO PRN (21:55)
[2021-02-14] MEDS: THIAMINE HCL 100 MG TABLET (FP) PO SCH (22:03)
[2021-02-14] MEDS: MELATONIN 5 MG TABLETS PO SCH (22:03)
[2021-02-14] MEDS: ACETAMINOPHEN 325 MG TABLET (FP) PO PRN (22:37)
[2021-02-15] MEDS: diazePAM 5 MG TABLET PO SCH ×2 (05:08→17:53)
[2021-02-15] MEDS: methaDONE HCL 40 MG DISPERSABLE TABLET PO SCH (05:09)
[2021-02-15] MEDS: ACETAMINOPHEN 325 MG TABLET (FP) PO PRN (05:09)
[2021-02-15] MEDS: PRENATAL VITAMINS W/ FOLIC ACID TABLET (FP) PO SCH (10:10)
[2021-02-15] MEDS: diazePAM 5 MG TABLET PO PRN ×2 (10:10→15:43)
[2021-02-15] MEDS: METHOCARBAMOL 500 MG TABLET PO PRN ×2 (10:11→21:59)
[2021-02-15] MEDS: MELATONIN 5 MG TABLETS PO SCH (21:59)
[2021-02-15] MEDS: THIAMINE HCL 100 MG TABLET (FP) PO SCH (22:00)
[2021-02-16] MEDS: methaDONE HCL 40 MG DISPERSABLE TABLET PO SCH (05:33)
[2021-02-16] MEDS ORDERED: diazePAM 5 MG TABLET PO ONE (06:00)
[2021-02-16 09:23] VITALS: BP 111/76; PULSE 72; TEMP 97.1
[2021-02-16] MEDS: METHOCARBAMOL 500 MG TABLET PO PRN (10:31)
[2021-02-16] MEDS: PRENATAL VITAMINS W/ FOLIC ACID TABLET (FP) PO SCH (10:31)
== END 2021-02-16 11:49 | disposition other institution (70) | DRG 773 ==
LOC: YASAS 19:38 → UNDOADMIN 02-11 01:49 → Y6N 02-11 01:49 → Y3N 02-11 16:29
PROVIDERS: ADMIT Allergy & Immunology; ATTEND Allergy & Immunology
PROC: HZ2ZZZZ Detoxification Services for Substance Abuse Treatment (ICD-10-PCS; principal; 2021-02-11)
DX: F10.230 Alcohol dependence with withdrawal, uncomplicated (principal); F11.20 Opioid dependence, uncomplicated; F13.20 Sedative, hypnotic or anxiolytic dependence, uncomplicated; F14.20 Cocaine dependence, uncomplicated; F17.210 Nicotine dependence, cigarettes, uncomplicated; F32.9 Major depressive disorder, single episode, unspecified; G47.00 Insomnia, unspecified; Z91.14 Patient's other noncompliance with medication regimen; Z56.0 Unemployment, unspecified; Z59.0 Homelessness
CPT/HCPCS: 36415; 80053; 85027; 86780; 87389; C9803; U0003; U0005

== ENCOUNTER 2021-02-16 11:53 | Inpatient (IN) | payer OTHER ==
[2021-02-16] MEDS ORDERED: IBUPROFEN 400 MG TABLET (FP) PO PRN (12:22)
[2021-02-16] MEDS ORDERED: MENTHOL/PHENOL 1 EACH UD MM PRN (12:22)
[2021-02-16] MEDS ORDERED: MAG HYDROX/AL HYDROX/SIMETH 30 ML UNIT-DOSE CUP PO PRN (12:22)
[2021-02-16] MEDS ORDERED: MAGNESIUM CITRATE 300 ML BOTTLE PO PRN (12:22)
[2021-02-16] MEDS ORDERED: guaiFENesin 200 MG/10 ML 10 ML UNIT-DOSE CUPS PO PRN (12:22)
[2021-02-16] MEDS ORDERED: NICOTINE 10 MG CARTRIDGE (INHALER) IH PRN (12:22)
[2021-02-16] MEDS ORDERED: ACETAMINOPHEN 325 MG TABLET (FP) PO PRN (12:22)
[2021-02-16] MEDS ORDERED: LOPERAMIDE HCL 2 MG CAPSULE PO PRN (12:22)
[2021-02-16] MEDS ORDERED: MAGNESIUM HYDROX 2400MG/30ML ORAL SUSPENSION 30 ML CUP PO PRN (12:22)
[2021-02-16] MEDS ORDERED: P-EPHED 60MG/TRIPROLIDI 2.5MG TABLET PO PRN (12:22)
[2021-02-16] MEDS: hydrOXYzine PAMOATE 25 MG CAPSULE (FP) PO PRN ×2 (13:31→21:17)
[2021-02-16] MEDS ORDERED: THIAMINE HCL 100 MG TABLET (FP) PO SCH (22:00)
[2021-02-16] MEDS ORDERED: MELATONIN 5 MG TABLETS PO SCH (22:00)
[2021-02-17] MEDS ORDERED: methaDONE HCL 40 MG DISPERSABLE TABLET PO SCH (06:00)
[2021-02-17 07:10] VITALS: BP 137/91; PULSE 66; TEMP 97.6
[2021-02-17] MEDS ORDERED: NICOTINE 7 MG/24 HOURS TOPICAL PATCH TD SCH (10:00)
[2021-02-17] MEDS ORDERED: PRENATAL VITAMINS W/ FOLIC ACID TABLET (FP) PO SCH (10:00)
== END 2021-02-17 09:05 | disposition left against medical advice (07) | DRG 770 ==
LOC: YASAS 11:53 → Y3W 11:54
PROVIDERS: ADMIT Allergy & Immunology; ATTEND Allergy & Immunology
PROC: HZ42ZZZ Group Counseling for Substance Abuse Treatment, Cognitive-Behavioral (ICD-10-PCS; principal; 2021-02-16)
DX: F10.20 Alcohol dependence, uncomplicated (principal); F11.20 Opioid dependence, uncomplicated; F13.20 Sedative, hypnotic or anxiolytic dependence, uncomplicated; F14.20 Cocaine dependence, uncomplicated; F12.20 Cannabis dependence, uncomplicated; F17.210 Nicotine dependence, cigarettes, uncomplicated; F41.9 Anxiety disorder, unspecified; F32.9 Major depressive disorder, single episode, unspecified; Z91.14 Patient's other noncompliance with medication regimen; Z88.0 Allergy status to penicillin

== ENCOUNTER 2021-05-05 14:47 | Inpatient (IN) | payer OTHER ==
[2021-05-05] MEDS ORDERED: MAGNESIUM CITRATE 300 ML BOTTLE PO PRN (17:36)
[2021-05-05] MEDS ORDERED: ACETAMINOPHEN 325 MG TABLET (FP) PO PRN (17:36)
[2021-05-05] MEDS ORDERED: BISMUTH SUBSALICYLATE 524 MG/30 ML PO PRN (17:36)
[2021-05-05] MEDS ORDERED: MAGNESIUM HYDROX 2400MG/30ML ORAL SUSPENSION 30 ML CUP PO PRN (17:36)
[2021-05-05] MEDS ORDERED: IBUPROFEN 400 MG TABLET (FP) PO PRN (17:36)
[2021-05-05] MEDS ORDERED: MENTHOL/PHENOL 1 EACH UD MM PRN (17:36)
[2021-05-05] MEDS ORDERED: ONDANSETRON *ODT* 4 MG TABLET SL PRN (17:36)
[2021-05-05 20:20] VITALS: BMI 28.3
[2021-05-05] MEDS ORDERED: LORazepam 1 MG TABLET PO PRN (20:44)
[2021-05-05] MEDS ORDERED: LORazepam 2 MG TABLET PO ONE (20:44)
[2021-05-05] MEDS: hydrOXYzine PAMOATE 25 MG CAPSULE (FP) PO SCH ×2 (21:04→21:13)
[2021-05-05] MEDS: MELATONIN 5 MG TABLETS PO SCH (21:14)
[2021-05-05] MEDS: THIAMINE HCL 100 MG TABLET (FP) PO SCH (21:14)
[2021-05-05] MEDS: METHOCARBAMOL 500 MG TABLET PO PRN (23:37)
[2021-05-05] MEDS: LORazepam 2 MG TABLET PO SCH (23:38)
[2021-05-06] MEDS: LORazepam 2 MG TABLET PO SCH (05:40)
[2021-05-06] MEDS: hydrOXYzine PAMOATE 25 MG CAPSULE (FP) PO SCH (05:41)
[2021-05-06] MEDS ORDERED: methaDONE HCL 10 MG TABLET PO SCH (07:30)
[2021-05-06] MEDS ORDERED: methaDONE HCL 10 MG TABLET ONE (07:41)
[2021-05-06] MEDS ORDERED: methaDONE HCL 40 MG DISPERSABLE TABLET ONE (07:42)
[2021-05-06] MEDS: PRENATAL VITAMINS W/ FOLIC ACID TABLET (FP) PO SCH (10:37)
[2021-05-06] MEDS: diazePAM 5 MG TABLET PO SCH ×3 (10:37→22:05)
[2021-05-06] MEDS: METHOCARBAMOL 500 MG TABLET PO PRN (10:37)
[2021-05-06 12:25] LABS: HEMATOCRIT 40.1 % (35.4-49); MCH 27.6 pg (25.7-33.7); MCHC 32.4 g/dl (32.0-35.9); MEAN CELL VOLUME 85.2 fl (80-96); MEAN PLT VOLUME 8.4 fl (7.5-11.1); PLATELET COUNT 302 10^3/uL (134-434); RBC 4.71 M/mm3 (4.00-5.60); RDW 16.4 % (11.9-15.9); WHITE BLOOD COUNT 6.7 K/mm3 (4.0-10.0)
[2021-05-06 12:37] LABS: CALCIUM 9.2 mg/dL (8.5-10.1)
[2021-05-06 12:38] LABS: ALBUMIN 3.8 g/dl (3.4-5.0); BLOOD UREA NITROGEN 9.2 mg/dL (7-18)
[2021-05-06 12:41] LABS: CREATININE 1.1 mg/dL (0.55-1.3)
[2021-05-06 12:42] LABS: BILIRUBIN,TOTAL 0.2 mg/dL (0.2-1); TOT PROT 8.3 g/dl (6.4-8.2)
[2021-05-06] MEDS: diazePAM 5 MG TABLET PO PRN (14:04)
[2021-05-06] MEDS: THIAMINE HCL 100 MG TABLET (FP) PO SCH (22:07)
[2021-05-06] MEDS: MELATONIN 5 MG TABLETS PO SCH (22:07)
[2021-05-06] MEDS: SUVOREXANT 10 MG TABLET PO PRN (22:07)
[2021-05-07] MEDS ORDERED: methaDONE HCL 10 MG TABLET ONE (04:06)
[2021-05-07] MEDS ORDERED: methaDONE HCL 40 MG DISPERSABLE TABLET ONE (04:07)
[2021-05-07] MEDS ORDERED: LORazepam 1 MG TABLET PO SCH (05:00)
[2021-05-07] MEDS: METHOCARBAMOL 500 MG TABLET PO PRN (05:21)
[2021-05-07] MEDS: diazePAM 5 MG TABLET PO SCH ×4 (05:21→22:06)
[2021-05-07] MEDS: PRENATAL VITAMINS W/ FOLIC ACID TABLET (FP) PO SCH (10:05)
[2021-05-07] MEDS: diazePAM 5 MG TABLET PO PRN (15:35)
[2021-05-07] MEDS: THIAMINE HCL 100 MG TABLET (FP) PO SCH (22:07)
[2021-05-07] MEDS: SUVOREXANT 10 MG TABLET PO PRN (22:07)
[2021-05-07] MEDS: MELATONIN 5 MG TABLETS PO SCH (22:08)
[2021-05-07] MEDS: MAG HYDROX/AL HYDROX/SIMETH 30 ML UNIT-DOSE CUP PO PRN (22:11)
[2021-05-08] MEDS ORDERED: LORazepam 0.5 MG TABLET PO PRN
[2021-05-08] MEDS ORDERED: methaDONE HCL 10 MG TABLET ONE (04:07)
[2021-05-08] MEDS ORDERED: methaDONE HCL 40 MG DISPERSABLE TABLET ONE (04:07)
[2021-05-08] MEDS ORDERED: LORazepam 0.5 MG TABLET PO SCH (05:00)
[2021-05-08] MEDS: diazePAM 5 MG TABLET PO SCH ×3 (05:21→22:08)
[2021-05-08] MEDS: METHOCARBAMOL 500 MG TABLET PO PRN ×2 (05:21→13:59)
[2021-05-08] MEDS: PRENATAL VITAMINS W/ FOLIC ACID TABLET (FP) PO SCH (10:17)
[2021-05-08] MEDS: diazePAM 5 MG TABLET PO PRN ×2 (10:18→17:50)
[2021-05-08] MEDS: THIAMINE HCL 100 MG TABLET (FP) PO SCH (22:08)
[2021-05-08] MEDS: MELATONIN 5 MG TABLETS PO SCH (22:33)
[2021-05-09] MEDS ORDERED: methaDONE HCL 10 MG TABLET ONE (04:16)
[2021-05-09] MEDS ORDERED: methaDONE HCL 40 MG DISPERSABLE TABLET ONE (04:17)
[2021-05-09] MEDS ORDERED: LORazepam 0.5 MG TABLET PO ONE (05:00)
[2021-05-09] MEDS: diazePAM 5 MG TABLET PO SCH ×2 (05:43→17:52)
[2021-05-09] MEDS: METHOCARBAMOL 500 MG TABLET PO PRN ×2 (05:43→22:06)
[2021-05-09] MEDS: PRENATAL VITAMINS W/ FOLIC ACID TABLET (FP) PO SCH (10:14)
[2021-05-09] MEDS: MAG HYDROX/AL HYDROX/SIMETH 30 ML UNIT-DOSE CUP PO PRN (13:56)
[2021-05-09] MEDS ORDERED: hydrOXYzine PAMOATE 50 MG CAPSULE (FP) PO PRN (14:23)
[2021-05-09] MEDS: ACETAMINOPHEN 325 MG TABLET (FP) PO PRN (17:54)
[2021-05-09] MEDS: MELATONIN 5 MG TABLETS PO SCH (22:06)
[2021-05-09] MEDS: THIAMINE HCL 100 MG TABLET (FP) PO SCH (22:06)
[2021-05-10] MEDS ORDERED: methaDONE HCL 40 MG DISPERSABLE TABLET ONE (04:54)
[2021-05-10] MEDS ORDERED: methaDONE HCL 10 MG TABLET ONE (04:54)
[2021-05-10] MEDS: MAG HYDROX/AL HYDROX/SIMETH 30 ML UNIT-DOSE CUP PO PRN (05:52)
[2021-05-10] MEDS ORDERED: diazePAM 5 MG TABLET PO ONE (06:00)
[2021-05-10 09:02] VITALS: BP 143/71; PULSE 60; TEMP 97.1
[2021-05-10] MEDS: PRENATAL VITAMINS W/ FOLIC ACID TABLET (FP) PO SCH (10:38)
[2021-05-10] MEDS: ACETAMINOPHEN 325 MG TABLET (FP) PO PRN (10:39)
[2021-05-10] MEDS: METHOCARBAMOL 500 MG TABLET PO PRN (10:39)
== END 2021-05-10 12:38 | disposition other institution (70) | DRG 773 ==
LOC: YASAS 14:47 → Y6N 20:07
PROVIDERS: ADMIT Allergy & Immunology; ATTEND Allergy & Immunology
PROC: HZ2ZZZZ Detoxification Services for Substance Abuse Treatment (ICD-10-PCS; principal; 2021-05-05)
DX: F10.230 Alcohol dependence with withdrawal, uncomplicated (principal); F10.220 Alcohol dependence with intoxication, uncomplicated; F11.20 Opioid dependence, uncomplicated; F13.20 Sedative, hypnotic or anxiolytic dependence, uncomplicated; F14.20 Cocaine dependence, uncomplicated; F17.210 Nicotine dependence, cigarettes, uncomplicated; F41.9 Anxiety disorder, unspecified; F19.24 Other psychoactive substance dependence with psychoactive substance-induced mood disorder; G47.00 Insomnia, unspecified; L90.5 Scar conditions and fibrosis of skin; E66.9 Obesity, unspecified; Z68.28 Body mass index [BMI] 28.0-28.9, adult; Z88.0 Allergy status to penicillin; Z91.14 Patient's other noncompliance with medication regimen; Z56.0 Unemployment, unspecified; Z59.00 Homelessness unspecified
CPT/HCPCS: 36415; 80053; 85027; 86780; C9803; U0003; U0005

== ENCOUNTER 2021-05-10 12:48 | Inpatient (IN) | payer OTHER ==
[2021-05-10] MEDS ORDERED: guaiFENesin 200 MG/10 ML 10 ML UNIT-DOSE CUPS PO PRN (13:41)
[2021-05-10] MEDS ORDERED: MAGNESIUM HYDROX 2400MG/30ML ORAL SUSPENSION 30 ML CUP PO PRN (13:41)
[2021-05-10] MEDS ORDERED: hydrOXYzine PAMOATE 25 MG CAPSULE (FP) PO PRN (13:41)
[2021-05-10] MEDS ORDERED: IBUPROFEN 400 MG TABLET (FP) PO PRN (13:41)
[2021-05-10] MEDS ORDERED: MENTHOL/PHENOL 1 EACH UD MM PRN (13:41)
[2021-05-10] MEDS ORDERED: ACETAMINOPHEN 325 MG TABLET (FP) PO PRN (13:41)
[2021-05-10] MEDS ORDERED: MAGNESIUM CITRATE 300 ML BOTTLE PO PRN (13:41)
[2021-05-10] MEDS ORDERED: LOPERAMIDE HCL 2 MG CAPSULE PO PRN (13:41)
[2021-05-10] MEDS ORDERED: P-EPHED 60MG/TRIPROLIDI 2.5MG TABLET PO PRN (13:41)
[2021-05-10] MEDS: MAG HYDROX/AL HYDROX/SIMETH 30 ML UNIT-DOSE CUP PO PRN ×2 (14:04→21:21)
[2021-05-10] MEDS: NICOTINE 10 MG CARTRIDGE (INHALER) IH PRN (18:42)
[2021-05-10] MEDS: SUVOREXANT 10 MG TABLET PO PRN (21:20)
[2021-05-10] MEDS: THIAMINE HCL 100 MG TABLET (FP) PO SCH (21:20)
[2021-05-10] MEDS: MELATONIN 5 MG TABLETS PO SCH (21:20)
[2021-05-11] MEDS ORDERED: methaDONE HCL 10 MG TABLET PO SCH (06:00)
[2021-05-11] MEDS ORDERED: methaDONE HCL 10 MG TABLET ONE (06:01)
[2021-05-11] MEDS ORDERED: methaDONE HCL 40 MG DISPERSABLE TABLET ONE (06:01)
[2021-05-11] MEDS: hydrOXYzine PAMOATE 50 MG CAPSULE (FP) PO PRN ×4 (06:10→23:20)
[2021-05-11] MEDS: MAG HYDROX/AL HYDROX/SIMETH 30 ML UNIT-DOSE CUP PO PRN (06:10)
[2021-05-11] MEDS: PRENATAL VITAMINS W/ FOLIC ACID TABLET (FP) PO SCH (10:18)
[2021-05-11] MEDS: NICOTINE 7 MG/24 HOURS TOPICAL PATCH TD SCH (10:19)
[2021-05-11] MEDS: NICOTINE 10 MG CARTRIDGE (INHALER) IH PRN (17:56)
[2021-05-11] MEDS: THIAMINE HCL 100 MG TABLET (FP) PO SCH (21:04)
[2021-05-11] MEDS: MELATONIN 5 MG TABLETS PO SCH (21:04)
[2021-05-11] MEDS: SUVOREXANT 10 MG TABLET PO PRN (21:05)
[2021-05-12] MEDS ORDERED: methaDONE HCL 10 MG TABLET ONE (03:03)
[2021-05-12] MEDS ORDERED: methaDONE HCL 40 MG DISPERSABLE TABLET ONE (03:03)
[2021-05-12] MEDS: hydrOXYzine PAMOATE 50 MG CAPSULE (FP) PO PRN ×4 (06:07→21:23)
[2021-05-12] MEDS: NICOTINE 10 MG CARTRIDGE (INHALER) IH PRN ×2 (09:41→21:21)
[2021-05-12] MEDS: NICOTINE 7 MG/24 HOURS TOPICAL PATCH TD SCH (10:23)
[2021-05-12] MEDS: PRENATAL VITAMINS W/ FOLIC ACID TABLET (FP) PO SCH (10:24)
[2021-05-12] MEDS: SUVOREXANT 10 MG TABLET PO PRN (21:21)
[2021-05-12] MEDS: MELATONIN 5 MG TABLETS PO SCH (21:21)
[2021-05-12] MEDS: THIAMINE HCL 100 MG TABLET (FP) PO SCH (21:21)
[2021-05-13] MEDS ORDERED: methaDONE HCL 40 MG DISPERSABLE TABLET ONE (03:49)
[2021-05-13] MEDS ORDERED: methaDONE HCL 10 MG TABLET ONE (03:49)
[2021-05-13] MEDS: hydrOXYzine PAMOATE 50 MG CAPSULE (FP) PO PRN ×4 (06:08→21:07)
[2021-05-13] MEDS: PRENATAL VITAMINS W/ FOLIC ACID TABLET (FP) PO SCH (10:02)
[2021-05-13] MEDS: NICOTINE 10 MG CARTRIDGE (INHALER) IH PRN (10:03)
[2021-05-13] MEDS: NICOTINE 7 MG/24 HOURS TOPICAL PATCH TD SCH (10:24)
[2021-05-13] MEDS: MELATONIN 5 MG TABLETS PO SCH (21:06)
[2021-05-13] MEDS: THIAMINE HCL 100 MG TABLET (FP) PO SCH (21:07)
[2021-05-13] MEDS: SUVOREXANT 10 MG TABLET PO PRN (21:53)
[2021-05-13] MEDS: MAG HYDROX/AL HYDROX/SIMETH 30 ML UNIT-DOSE CUP PO PRN (21:53)
[2021-05-14] MEDS ORDERED: methaDONE HCL 10 MG TABLET ONE (03:07)
[2021-05-14] MEDS ORDERED: methaDONE HCL 40 MG DISPERSABLE TABLET ONE (03:07)
[2021-05-14] MEDS: hydrOXYzine PAMOATE 50 MG CAPSULE (FP) PO PRN ×3 (05:53→21:30)
[2021-05-14] MEDS: NICOTINE 7 MG/24 HOURS TOPICAL PATCH TD SCH (09:46)
[2021-05-14] MEDS: PRENATAL VITAMINS W/ FOLIC ACID TABLET (FP) PO SCH (09:47)
[2021-05-14] MEDS: THIAMINE HCL 100 MG TABLET (FP) PO SCH (21:29)
[2021-05-14] MEDS: MELATONIN 5 MG TABLETS PO SCH (21:29)
[2021-05-14] MEDS: SUVOREXANT 10 MG TABLET PO PRN (21:30)
[2021-05-15] MEDS ORDERED: methaDONE HCL 40 MG DISPERSABLE TABLET ONE (03:08)
[2021-05-15] MEDS ORDERED: methaDONE HCL 10 MG TABLET ONE (03:09)
[2021-05-15] MEDS: hydrOXYzine PAMOATE 50 MG CAPSULE (FP) PO PRN ×4 (06:03→21:04)
[2021-05-15] MEDS: PRENATAL VITAMINS W/ FOLIC ACID TABLET (FP) PO SCH (10:22)
[2021-05-15] MEDS: NICOTINE 7 MG/24 HOURS TOPICAL PATCH TD SCH (10:22)
[2021-05-15] MEDS: NICOTINE 10 MG CARTRIDGE (INHALER) IH PRN (11:31)
[2021-05-15] MEDS: THIAMINE HCL 100 MG TABLET (FP) PO SCH (21:03)
[2021-05-15] MEDS: SUVOREXANT 10 MG TABLET PO PRN (21:04)
[2021-05-15] MEDS: traZODone HCL 50 MG TABLET (FP) PO SCH (21:04)
[2021-05-15] MEDS: MELATONIN 5 MG TABLETS PO SCH (21:04)
[2021-05-16] MEDS ORDERED: methaDONE HCL 10 MG TABLET ONE (03:39)
[2021-05-16] MEDS ORDERED: methaDONE HCL 40 MG DISPERSABLE TABLET ONE (03:39)
[2021-05-16] MEDS: hydrOXYzine PAMOATE 50 MG CAPSULE (FP) PO PRN ×4 (06:00→20:07)
[2021-05-16] MEDS: PRENATAL VITAMINS W/ FOLIC ACID TABLET (FP) PO SCH (09:39)
[2021-05-16] MEDS: NICOTINE 7 MG/24 HOURS TOPICAL PATCH TD SCH (09:39)
[2021-05-16] MEDS: traZODone HCL 50 MG TABLET (FP) PO SCH (21:18)
[2021-05-16] MEDS: MELATONIN 5 MG TABLETS PO SCH (21:18)
[2021-05-16] MEDS: THIAMINE HCL 100 MG TABLET (FP) PO SCH (21:18)
[2021-05-16] MEDS: SUVOREXANT 10 MG TABLET PO PRN (21:19)
[2021-05-17] MEDS ORDERED: methaDONE HCL 40 MG DISPERSABLE TABLET ONE (03:12)
[2021-05-17] MEDS ORDERED: methaDONE HCL 10 MG TABLET ONE (03:12)
[2021-05-17] MEDS: hydrOXYzine PAMOATE 50 MG CAPSULE (FP) PO PRN (05:45)
[2021-05-17 06:44] VITALS: BP 121/71; PULSE 100; TEMP 98.1
[2021-05-17] MEDS: NICOTINE 7 MG/24 HOURS TOPICAL PATCH TD SCH (09:10)
[2021-05-17] MEDS: PRENATAL VITAMINS W/ FOLIC ACID TABLET (FP) PO SCH (09:10)
== END 2021-05-17 09:15 | disposition home or self-care (01) | DRG 772 ==
LOC: YASAS 12:48 → Y3W 12:52
PROVIDERS: ADMIT Allergy & Immunology; ATTEND Allergy & Immunology
PROC: HZ42ZZZ Group Counseling for Substance Abuse Treatment, Cognitive-Behavioral (ICD-10-PCS; principal; 2021-05-10)
DX: F10.20 Alcohol dependence, uncomplicated (principal); F14.20 Cocaine dependence, uncomplicated; F12.20 Cannabis dependence, uncomplicated; F17.210 Nicotine dependence, cigarettes, uncomplicated; F41.9 Anxiety disorder, unspecified; F19.24 Other psychoactive substance dependence with psychoactive substance-induced mood disorder; F19.282 Other psychoactive substance dependence with psychoactive substance-induced sleep disorder; G47.00 Insomnia, unspecified; Z56.0 Unemployment, unspecified; Z59.00 Homelessness unspecified

== ENCOUNTER 2021-07-05 15:01 | Inpatient (IN) | payer OTHER ==
[2021-07-05 18:00] VITALS: BMI 29.8
[2021-07-05] MEDS ORDERED: ACETAMINOPHEN 325 MG TABLET (FP) PO PRN (18:44)
[2021-07-05] MEDS ORDERED: guaiFENesin 200 MG/10 ML 10 ML UNIT-DOSE CUPS PO PRN (18:44)
[2021-07-05] MEDS ORDERED: MAGNESIUM HYDROX 2400MG/30ML ORAL SUSPENSION 30 ML CUP PO PRN (18:44)
[2021-07-05] MEDS ORDERED: MAGNESIUM CITRATE 300 ML BOTTLE PO PRN (18:44)
[2021-07-05] MEDS ORDERED: LOPERAMIDE HCL 2 MG CAPSULE PO PRN (18:44)
[2021-07-05] MEDS ORDERED: MAG HYDROX/AL HYDROX/SIMETH 30 ML UNIT-DOSE CUP PO PRN (18:44)
[2021-07-05] MEDS ORDERED: chlordiazePOXIDE HCL 25 MG CAPSULE PO PRN (18:44)
[2021-07-05] MEDS ORDERED: NICOTINE 10 MG CARTRIDGE (INHALER) IH PRN (18:44)
[2021-07-05] MEDS ORDERED: P-EPHED 60MG/TRIPROLIDI 2.5MG TABLET PO PRN (18:44)
[2021-07-05] MEDS ORDERED: MENTHOL/PHENOL 1 EACH UD MM PRN (18:44)
[2021-07-05] MEDS: hydrOXYzine PAMOATE 25 MG CAPSULE (FP) PO SCH (22:24)
[2021-07-05] MEDS: THIAMINE HCL 100 MG TABLET (FP) PO SCH (22:24)
[2021-07-05] MEDS: ATORVASTATIN CA 10 MG TABLET (FP) PO SCH (22:24)
[2021-07-05] MEDS: chlordiazePOXIDE HCL 25 MG CAPSULE PO SCH (22:24)
[2021-07-05] MEDS: MELATONIN 5 MG TABLETS PO SCH (22:26)
[2021-07-06] MEDS: hydrOXYzine PAMOATE 25 MG CAPSULE (FP) PO SCH ×5 (05:10→23:05)
[2021-07-06] MEDS: chlordiazePOXIDE HCL 25 MG CAPSULE PO SCH ×4 (05:11→22:25)
[2021-07-06] MEDS ORDERED: methaDONE HCL 10 MG TABLET PO SCH ×2 (06:00→07:45)
[2021-07-06] MEDS ORDERED: methaDONE HCL 40 MG DISPERSABLE TABLET ONE (07:45)
[2021-07-06] MEDS ORDERED: methaDONE HCL 10 MG TABLET ONE (07:45)
[2021-07-06] MEDS: METHOCARBAMOL 500 MG TABLET PO PRN ×2 (10:19→19:39)
[2021-07-06] MEDS: NICOTINE 7 MG/24 HOURS TOPICAL PATCH TD SCH (10:19)
[2021-07-06] MEDS: PRENATAL VITAMINS W/ FOLIC ACID TABLET (FP) PO SCH (10:19)
[2021-07-06] MEDS: CLINDAMYCIN HCL 150 MG CAPSULE (FP) PO SCH ×2 (15:16→22:25)
[2021-07-06] MEDS: traZODone HCL 50 MG TABLET (FP) PO SCH (22:25)
[2021-07-06] MEDS: IBUPROFEN 400 MG TABLET (FP) PO PRN (22:26)
[2021-07-06] MEDS: ATORVASTATIN CA 10 MG TABLET (FP) PO SCH (22:26)
[2021-07-06] MEDS: THIAMINE HCL 100 MG TABLET (FP) PO SCH (22:26)
[2021-07-06] MEDS: MELATONIN 5 MG TABLETS PO SCH (22:26)
[2021-07-07] MEDS ORDERED: methaDONE HCL 40 MG DISPERSABLE TABLET ONE (04:10)
[2021-07-07] MEDS ORDERED: methaDONE HCL 10 MG TABLET ONE (04:10)
[2021-07-07] MEDS: chlordiazePOXIDE HCL 25 MG CAPSULE PO SCH ×4 (05:14→22:19)
[2021-07-07] MEDS: CLINDAMYCIN HCL 150 MG CAPSULE (FP) PO SCH ×3 (05:14→22:17)
[2021-07-07] MEDS: hydrOXYzine PAMOATE 25 MG CAPSULE (FP) PO SCH ×5 (05:14→22:17)
[2021-07-07 10:29] LABS: HEMATOCRIT 34.6 % (35.4-49); HEMOGLOBIN 10.9 GM/dL (11.7-16.9); MCH 27.1 pg (25.7-33.7); MCHC 31.4 g/dl (32.0-35.9); MEAN CELL VOLUME 86.2 fl (80-96); PLATELET COUNT 273 10^3/uL (134-434); RBC 4.02 M/mm3 (4.00-5.60); RDW 17.7 % (11.9-15.9)
[2021-07-07 10:37] LABS: ALBUMIN 2.8 g/dl (3.4-5.0); BLOOD UREA NITROGEN 16.3 mg/dL (7-18); CALCIUM 8.3 mg/dL (8.5-10.1)
[2021-07-07 10:40] LABS: CREATININE 0.8 mg/dL (0.55-1.3)
[2021-07-07 10:42] LABS: BILIRUBIN,TOTAL 0.2 mg/dL (0.2-1); TOT PROT 6.2 g/dl (6.4-8.2)
[2021-07-07] MEDS: PRENATAL VITAMINS W/ FOLIC ACID TABLET (FP) PO SCH (10:49)
[2021-07-07] MEDS: METHOCARBAMOL 500 MG TABLET PO PRN ×2 (10:52→17:39)
[2021-07-07] MEDS: NICOTINE 7 MG/24 HOURS TOPICAL PATCH TD SCH (11:46)
[2021-07-07 15:49] LABS: HIV INTERPRETATION NEGATIVE (NEGATIVE)
[2021-07-07] MEDS: IBUPROFEN 400 MG TABLET (FP) PO PRN (17:39)
[2021-07-07] MEDS: THIAMINE HCL 100 MG TABLET (FP) PO SCH (22:17)
[2021-07-07] MEDS: ATORVASTATIN CA 10 MG TABLET (FP) PO SCH (22:17)
[2021-07-07] MEDS: traZODone HCL 50 MG TABLET (FP) PO SCH (22:17)
[2021-07-07] MEDS: MELATONIN 5 MG TABLETS PO SCH (22:51)
[2021-07-08] MEDS ORDERED: chlordiazePOXIDE HCL 10 MG CAPSULE PO PRN
[2021-07-08] MEDS ORDERED: methaDONE HCL 10 MG TABLET ONE (04:26)
[2021-07-08] MEDS ORDERED: methaDONE HCL 40 MG DISPERSABLE TABLET ONE (04:26)
[2021-07-08] MEDS: hydrOXYzine PAMOATE 25 MG CAPSULE (FP) PO SCH ×5 (05:41→22:26)
[2021-07-08] MEDS: CLINDAMYCIN HCL 150 MG CAPSULE (FP) PO SCH ×3 (05:41→22:25)
[2021-07-08] MEDS: chlordiazePOXIDE HCL 10 MG CAPSULE PO SCH ×4 (05:41→22:24)
[2021-07-08] MEDS: METHOCARBAMOL 500 MG TABLET PO PRN ×2 (05:42→17:10)
[2021-07-08] MEDS: PRENATAL VITAMINS W/ FOLIC ACID TABLET (FP) PO SCH (10:31)
[2021-07-08] MEDS: NICOTINE 7 MG/24 HOURS TOPICAL PATCH TD SCH (10:32)
[2021-07-08] MEDS: THIAMINE HCL 100 MG TABLET (FP) PO SCH (22:24)
[2021-07-08] MEDS: ATORVASTATIN CA 10 MG TABLET (FP) PO SCH (22:24)
[2021-07-08] MEDS: traZODone HCL 50 MG TABLET (FP) PO SCH (22:24)
[2021-07-08] MEDS: MELATONIN 5 MG TABLETS PO SCH (22:28)
[2021-07-09] MEDS ORDERED: methaDONE HCL 10 MG TABLET ONE (05:10)
[2021-07-09] MEDS ORDERED: methaDONE HCL 40 MG DISPERSABLE TABLET ONE (05:10)
[2021-07-09] MEDS: CLINDAMYCIN HCL 150 MG CAPSULE (FP) PO SCH ×3 (05:39→22:14)
[2021-07-09] MEDS: chlordiazePOXIDE HCL 10 MG CAPSULE PO SCH ×2 (05:40→16:35)
[2021-07-09] MEDS: hydrOXYzine PAMOATE 25 MG CAPSULE (FP) PO SCH ×5 (06:15→22:14)
[2021-07-09] MEDS: PRENATAL VITAMINS W/ FOLIC ACID TABLET (FP) PO SCH (10:06)
[2021-07-09] MEDS: NICOTINE 7 MG/24 HOURS TOPICAL PATCH TD SCH (10:06)
[2021-07-09] MEDS: METHOCARBAMOL 500 MG TABLET PO PRN ×2 (10:25→22:15)
[2021-07-09] MEDS ORDERED: chlordiazePOXIDE 5 MG CAPSULE PO ONE (11:00)
[2021-07-09] MEDS: traZODone HCL 50 MG TABLET (FP) PO SCH (22:14)
[2021-07-09] MEDS: ATORVASTATIN CA 10 MG TABLET (FP) PO SCH (22:14)
[2021-07-09] MEDS: MELATONIN 5 MG TABLETS PO SCH (22:15)
[2021-07-09] MEDS: THIAMINE HCL 100 MG TABLET (FP) PO SCH (23:53)
[2021-07-10] MEDS ORDERED: methaDONE HCL 40 MG DISPERSABLE TABLET ONE (04:33)
[2021-07-10] MEDS ORDERED: methaDONE HCL 10 MG TABLET ONE (04:33)
[2021-07-10] MEDS ORDERED: chlordiazePOXIDE HCL 10 MG CAPSULE PO ONE (05:00)
[2021-07-10] MEDS: hydrOXYzine PAMOATE 25 MG CAPSULE (FP) PO SCH ×2 (05:37→10:38)
[2021-07-10] MEDS: CLINDAMYCIN HCL 150 MG CAPSULE (FP) PO SCH (05:37)
[2021-07-10] MEDS: METHOCARBAMOL 500 MG TABLET PO PRN (10:38)
[2021-07-10] MEDS: PRENATAL VITAMINS W/ FOLIC ACID TABLET (FP) PO SCH (10:38)
[2021-07-10] MEDS: NICOTINE 7 MG/24 HOURS TOPICAL PATCH TD SCH (10:38)
[2021-07-10 12:26] VITALS: BP 119/67; PULSE 83; TEMP 98
== END 2021-07-10 12:53 | disposition other institution (70) | DRG 773 ==
LOC: YASAS 15:01 → Y6N 19:44
PROVIDERS: ADMIT Allergy & Immunology; ATTEND Allergy & Immunology
PROC: HZ2ZZZZ Detoxification Services for Substance Abuse Treatment (ICD-10-PCS; principal; 2021-07-05)
DX: F10.230 Alcohol dependence with withdrawal, uncomplicated (principal); F11.20 Opioid dependence, uncomplicated; F14.20 Cocaine dependence, uncomplicated; F12.20 Cannabis dependence, uncomplicated; F17.210 Nicotine dependence, cigarettes, uncomplicated; F19.282 Other psychoactive substance dependence with psychoactive substance-induced sleep disorder; F32.A Depression, unspecified; F64.9 Gender identity disorder, unspecified; L03.113 Cellulitis of right upper limb; Z56.0 Unemployment, unspecified; Z59.00 Homelessness unspecified; Z88.0 Allergy status to penicillin
CPT/HCPCS: 36415; 80053; 85027; 86780; 87389; C9803; U0003; U0005

== ENCOUNTER 2021-07-10 13:16 | Inpatient (IN) | payer OTHER ==
[~2021-07-10 13:16] MED LIST: ACETAMINOPHEN 325 MG TABLET (FP) PO PRN; LOPERAMIDE HCL 2 MG CAPSULE PO PRN; MAG HYDROX/AL HYDROX/SIMETH 30 ML UNIT-DOSE CUP PO PRN; MAGNESIUM CITRATE 300 ML BOTTLE PO PRN; MAGNESIUM HYDROX 2400MG/30ML ORAL SUSPENSION 30 ML CUP PO PRN; P-EPHED 60MG/TRIPROLIDI 2.5MG TABLET PO PRN; guaiFENesin 200 MG/10 ML 10 ML UNIT-DOSE CUPS PO PRN
[2021-07-10] MEDS: CLINDAMYCIN HCL 150 MG CAPSULE (FP) PO SCH ×2 (14:07→21:16)
[2021-07-10] MEDS: hydrOXYzine PAMOATE 25 MG CAPSULE (FP) PO SCH ×3 (14:07→21:16)
[2021-07-10] MEDS: MELATONIN 5 MG TABLETS PO SCH (21:16)
[2021-07-10] MEDS: traZODone HCL 50 MG TABLET (FP) PO SCH (21:16)
[2021-07-10] MEDS: ATORVASTATIN CA 10 MG TABLET (FP) PO SCH (21:16)
[2021-07-10] MEDS: THIAMINE HCL 100 MG TABLET (FP) PO SCH (21:16)
[2021-07-11] MEDS ORDERED: methaDONE HCL 10 MG TABLET PO SCH (06:00)
[2021-07-11] MEDS ORDERED: methaDONE HCL 10 MG TABLET ONE (06:18)
[2021-07-11] MEDS ORDERED: methaDONE HCL 40 MG DISPERSABLE TABLET ONE (06:18)
[2021-07-11] MEDS: CLINDAMYCIN HCL 150 MG CAPSULE (FP) PO SCH ×3 (06:19→21:14)
[2021-07-11] MEDS: hydrOXYzine PAMOATE 25 MG CAPSULE (FP) PO SCH ×5 (06:19→21:11)
[2021-07-11] MEDS: NICOTINE 7 MG/24 HOURS TOPICAL PATCH TD SCH (09:51)
[2021-07-11] MEDS: PRENATAL VITAMINS W/ FOLIC ACID TABLET (FP) PO SCH (09:51)
[2021-07-11] MEDS ORDERED: GABAPENTIN 300 MG CAPSULE PO SCH (14:00)
[2021-07-11] MEDS: GABAPENTIN 300 MG CAPSULE PO PRN ×2 (14:02→21:14)
[2021-07-11] MEDS: BACITRACIN 0.9 GM PACKET TP SCH (15:53)
[2021-07-11] MEDS: ATORVASTATIN CA 10 MG TABLET (FP) PO SCH (21:11)
[2021-07-11] MEDS: traZODone HCL 50 MG TABLET (FP) PO SCH (21:11)
[2021-07-11] MEDS: MELATONIN 5 MG TABLETS PO SCH (21:11)
[2021-07-11] MEDS: THIAMINE HCL 100 MG TABLET (FP) PO SCH (21:11)
[2021-07-12] MEDS ORDERED: methaDONE HCL 40 MG DISPERSABLE TABLET ONE (02:57)
[2021-07-12] MEDS ORDERED: methaDONE HCL 10 MG TABLET ONE (02:57)
[2021-07-12] MEDS: hydrOXYzine PAMOATE 25 MG CAPSULE (FP) PO SCH ×5 (06:15→21:22)
[2021-07-12] MEDS: CLINDAMYCIN HCL 150 MG CAPSULE (FP) PO SCH ×3 (06:15→21:21)
[2021-07-12] MEDS: GABAPENTIN 300 MG CAPSULE PO PRN ×3 (06:16→21:21)
[2021-07-12] MEDS: PRENATAL VITAMINS W/ FOLIC ACID TABLET (FP) PO SCH (10:06)
[2021-07-12] MEDS: BACITRACIN 0.9 GM PACKET TP SCH (10:06)
[2021-07-12] MEDS: NICOTINE 7 MG/24 HOURS TOPICAL PATCH TD SCH (10:07)
[2021-07-12] MEDS: THIAMINE HCL 100 MG TABLET (FP) PO SCH (21:21)
[2021-07-12] MEDS: ATORVASTATIN CA 10 MG TABLET (FP) PO SCH (21:21)
[2021-07-12] MEDS: traZODone HCL 50 MG TABLET (FP) PO SCH (21:21)
[2021-07-12] MEDS: METHOCARBAMOL 500 MG TABLET PO PRN (21:21)
[2021-07-12] MEDS: MELATONIN 5 MG TABLETS PO SCH (21:23)
[2021-07-12] MEDS: IBUPROFEN 400 MG TABLET (FP) PO PRN (21:54)
[2021-07-13] MEDS ORDERED: methaDONE HCL 10 MG TABLET ONE (03:11)
[2021-07-13] MEDS ORDERED: methaDONE HCL 40 MG DISPERSABLE TABLET ONE (03:11)
[2021-07-13] MEDS: GABAPENTIN 300 MG CAPSULE PO PRN ×3 (06:21→21:22)
[2021-07-13] MEDS: CLINDAMYCIN HCL 150 MG CAPSULE (FP) PO SCH ×3 (06:21→21:23)
[2021-07-13] MEDS: hydrOXYzine PAMOATE 25 MG CAPSULE (FP) PO SCH ×5 (06:21→21:23)
[2021-07-13] MEDS: PRENATAL VITAMINS W/ FOLIC ACID TABLET (FP) PO SCH (10:12)
[2021-07-13] MEDS: METHOCARBAMOL 500 MG TABLET PO PRN ×2 (10:13→21:22)
[2021-07-13] MEDS: BACITRACIN 0.9 GM PACKET TP SCH (10:14)
[2021-07-13] MEDS: NICOTINE 7 MG/24 HOURS TOPICAL PATCH TD SCH (10:14)
[2021-07-13] MEDS: IBUPROFEN 400 MG TABLET (FP) PO PRN ×2 (12:17→19:32)
[2021-07-13] MEDS: MELATONIN 5 MG TABLETS PO SCH (21:22)
[2021-07-13] MEDS: THIAMINE HCL 100 MG TABLET (FP) PO SCH (21:22)
[2021-07-13] MEDS: ATORVASTATIN CA 10 MG TABLET (FP) PO SCH (21:22)
[2021-07-13] MEDS: traZODone HCL 50 MG TABLET (FP) PO SCH (21:22)
[2021-07-14] MEDS ORDERED: methaDONE HCL 40 MG DISPERSABLE TABLET ONE (03:50)
[2021-07-14] MEDS ORDERED: methaDONE HCL 10 MG TABLET ONE (03:50)
[2021-07-14] MEDS: hydrOXYzine PAMOATE 25 MG CAPSULE (FP) PO SCH ×3 (06:30→13:17)
[2021-07-14] MEDS: GABAPENTIN 300 MG CAPSULE PO PRN ×3 (06:31→21:22)
[2021-07-14] MEDS: IBUPROFEN 400 MG TABLET (FP) PO PRN ×2 (06:33→21:21)
[2021-07-14] MEDS: NICOTINE 10 MG CARTRIDGE (INHALER) IH PRN (10:07)
[2021-07-14] MEDS: METHOCARBAMOL 500 MG TABLET PO PRN ×2 (10:07→21:21)
[2021-07-14] MEDS: PRENATAL VITAMINS W/ FOLIC ACID TABLET (FP) PO SCH (10:07)
[2021-07-14] MEDS: BACITRACIN 0.9 GM PACKET TP SCH (10:08)
[2021-07-14] MEDS: NICOTINE 7 MG/24 HOURS TOPICAL PATCH TD SCH (10:08)
[2021-07-14] MEDS: THIAMINE HCL 100 MG TABLET (FP) PO SCH (21:21)
[2021-07-14] MEDS: traZODone HCL 50 MG TABLET (FP) PO SCH (21:21)
[2021-07-14] MEDS: ATORVASTATIN CA 10 MG TABLET (FP) PO SCH (21:22)
[2021-07-14] MEDS: hydrOXYzine PAMOATE 25 MG CAPSULE (FP) PO PRN (21:22)
[2021-07-14] MEDS: MELATONIN 5 MG TABLETS PO SCH (21:23)
[2021-07-15] MEDS ORDERED: methaDONE HCL 10 MG TABLET ONE (03:08)
[2021-07-15] MEDS ORDERED: methaDONE HCL 40 MG DISPERSABLE TABLET ONE (03:08)
[2021-07-15] MEDS: hydrOXYzine PAMOATE 25 MG CAPSULE (FP) PO PRN ×3 (06:34→18:01)
[2021-07-15] MEDS: GABAPENTIN 300 MG CAPSULE PO PRN ×3 (06:34→22:55)
[2021-07-15] MEDS: METHOCARBAMOL 500 MG TABLET PO PRN ×2 (10:03→21:21)
[2021-07-15] MEDS: BACITRACIN 0.9 GM PACKET TP SCH (10:03)
[2021-07-15] MEDS: PRENATAL VITAMINS W/ FOLIC ACID TABLET (FP) PO SCH (10:03)
[2021-07-15] MEDS: NICOTINE 7 MG/24 HOURS TOPICAL PATCH TD SCH (10:03)
[2021-07-15] MEDS: NICOTINE 10 MG CARTRIDGE (INHALER) IH PRN (10:07)
[2021-07-15] MEDS: THIAMINE HCL 100 MG TABLET (FP) PO SCH (21:21)
[2021-07-15] MEDS: traZODone HCL 50 MG TABLET (FP) PO SCH (21:21)
[2021-07-15] MEDS: ATORVASTATIN CA 10 MG TABLET (FP) PO SCH (21:21)
[2021-07-15] MEDS: MELATONIN 5 MG TABLETS PO SCH (21:22)
[2021-07-16] MEDS ORDERED: methaDONE HCL 40 MG DISPERSABLE TABLET ONE (03:10)
[2021-07-16] MEDS ORDERED: methaDONE HCL 10 MG TABLET ONE (03:10)
[2021-07-16] MEDS: hydrOXYzine PAMOATE 25 MG CAPSULE (FP) PO PRN ×3 (06:15→15:31)
[2021-07-16] MEDS: GABAPENTIN 300 MG CAPSULE PO PRN ×3 (06:15→21:16)
[2021-07-16] MEDS: IBUPROFEN 400 MG TABLET (FP) PO PRN ×3 (06:17→21:17)
[2021-07-16] MEDS: BACITRACIN 0.9 GM PACKET TP SCH (09:49)
[2021-07-16] MEDS: PRENATAL VITAMINS W/ FOLIC ACID TABLET (FP) PO SCH (09:49)
[2021-07-16] MEDS: NICOTINE 7 MG/24 HOURS TOPICAL PATCH TD SCH (09:49)
[2021-07-16] MEDS: METHOCARBAMOL 500 MG TABLET PO PRN ×2 (09:50→18:21)
[2021-07-16] MEDS: traZODone HCL 50 MG TABLET (FP) PO SCH (21:16)
[2021-07-16] MEDS: MELATONIN 5 MG TABLETS PO SCH (21:16)
[2021-07-16] MEDS: ATORVASTATIN CA 10 MG TABLET (FP) PO SCH (21:16)
[2021-07-16] MEDS: THIAMINE HCL 100 MG TABLET (FP) PO SCH (21:16)
[2021-07-17] MEDS ORDERED: methaDONE HCL 10 MG TABLET ONE (03:06)
[2021-07-17] MEDS ORDERED: methaDONE HCL 40 MG DISPERSABLE TABLET ONE (03:06)
[2021-07-17] MEDS: IBUPROFEN 400 MG TABLET (FP) PO PRN (06:20)
[2021-07-17] MEDS: GABAPENTIN 300 MG CAPSULE PO PRN ×3 (06:20→21:23)
[2021-07-17] MEDS: hydrOXYzine PAMOATE 25 MG CAPSULE (FP) PO PRN ×3 (06:20→21:24)
[2021-07-17] MEDS: PRENATAL VITAMINS W/ FOLIC ACID TABLET (FP) PO SCH (09:35)
[2021-07-17] MEDS: NICOTINE 7 MG/24 HOURS TOPICAL PATCH TD SCH (09:35)
[2021-07-17] MEDS: BACITRACIN 0.9 GM PACKET TP SCH (09:35)
[2021-07-17] MEDS: METHOCARBAMOL 500 MG TABLET PO PRN ×2 (09:37→21:23)
[2021-07-17] MEDS: BENZOCAINE 20 % GEL TUBE MM PRN (18:12)
[2021-07-17] MEDS: ATORVASTATIN CA 10 MG TABLET (FP) PO SCH (21:23)
[2021-07-17] MEDS: THIAMINE HCL 100 MG TABLET (FP) PO SCH (21:23)
[2021-07-17] MEDS: traZODone HCL 50 MG TABLET (FP) PO SCH (21:24)
[2021-07-17] MEDS: MELATONIN 5 MG TABLETS PO SCH (21:24)
[2021-07-18] MEDS ORDERED: methaDONE HCL 10 MG TABLET ONE (05:30)
[2021-07-18] MEDS ORDERED: methaDONE HCL 40 MG DISPERSABLE TABLET ONE (05:30)
[2021-07-18] MEDS: hydrOXYzine PAMOATE 25 MG CAPSULE (FP) PO PRN ×4 (06:24→21:31)
[2021-07-18] MEDS: GABAPENTIN 300 MG CAPSULE PO PRN ×2 (06:24→17:17)
[2021-07-18] MEDS: NICOTINE 7 MG/24 HOURS TOPICAL PATCH TD SCH (10:12)
[2021-07-18] MEDS: BACITRACIN 0.9 GM PACKET TP SCH (10:12)
[2021-07-18] MEDS: PRENATAL VITAMINS W/ FOLIC ACID TABLET (FP) PO SCH (10:12)
[2021-07-18] MEDS: METHOCARBAMOL 500 MG TABLET PO PRN ×2 (10:13→21:31)
[2021-07-18] MEDS: traZODone HCL 50 MG TABLET (FP) PO SCH (21:30)
[2021-07-18] MEDS: ATORVASTATIN CA 10 MG TABLET (FP) PO SCH (21:31)
[2021-07-18] MEDS: THIAMINE HCL 100 MG TABLET (FP) PO SCH (21:31)
[2021-07-18] MEDS: MELATONIN 5 MG TABLETS PO SCH (21:31)
[2021-07-19] MEDS ORDERED: methaDONE HCL 10 MG TABLET ONE (02:45)
[2021-07-19] MEDS ORDERED: methaDONE HCL 40 MG DISPERSABLE TABLET ONE (02:45)
[2021-07-19] MEDS: hydrOXYzine PAMOATE 25 MG CAPSULE (FP) PO PRN ×3 (06:32→14:54)
[2021-07-19] MEDS: GABAPENTIN 300 MG CAPSULE PO PRN ×3 (06:32→22:00)
[2021-07-19] MEDS: METHOCARBAMOL 500 MG TABLET PO PRN ×2 (10:01→22:00)
[2021-07-19] MEDS: NICOTINE 7 MG/24 HOURS TOPICAL PATCH TD SCH (10:01)
[2021-07-19] MEDS: PRENATAL VITAMINS W/ FOLIC ACID TABLET (FP) PO SCH (10:01)
[2021-07-19] MEDS: IBUPROFEN 400 MG TABLET (FP) PO PRN (10:02)
[2021-07-19] MEDS: MELATONIN 5 MG TABLETS PO SCH (22:00)
[2021-07-19] MEDS: THIAMINE HCL 100 MG TABLET (FP) PO SCH (22:00)
[2021-07-19] MEDS: traZODone HCL 50 MG TABLET (FP) PO SCH (22:00)
[2021-07-19] MEDS: ATORVASTATIN CA 10 MG TABLET (FP) PO SCH (22:00)
[2021-07-20] MEDS ORDERED: methaDONE HCL 10 MG TABLET ONE (02:55)
[2021-07-20] MEDS ORDERED: methaDONE HCL 40 MG DISPERSABLE TABLET ONE (02:55)
[2021-07-20] MEDS: GABAPENTIN 300 MG CAPSULE PO PRN ×3 (06:34→21:29)
[2021-07-20] MEDS: hydrOXYzine PAMOATE 25 MG CAPSULE (FP) PO PRN ×2 (06:34→10:36)
[2021-07-20] MEDS: IBUPROFEN 400 MG TABLET (FP) PO PRN (07:46)
[2021-07-20] MEDS: NICOTINE 7 MG/24 HOURS TOPICAL PATCH TD SCH (10:35)
[2021-07-20] MEDS: PRENATAL VITAMINS W/ FOLIC ACID TABLET (FP) PO SCH (10:35)
[2021-07-20] MEDS: METHOCARBAMOL 500 MG TABLET PO PRN ×2 (10:36→21:29)
[2021-07-20] MEDS: ATORVASTATIN CA 10 MG TABLET (FP) PO SCH (21:29)
[2021-07-20] MEDS: traZODone HCL 50 MG TABLET (FP) PO SCH (21:29)
[2021-07-20] MEDS: THIAMINE HCL 100 MG TABLET (FP) PO SCH (21:29)
[2021-07-20] MEDS: MELATONIN 5 MG TABLETS PO SCH (21:29)
[2021-07-21] MEDS ORDERED: methaDONE HCL 10 MG TABLET ONE (05:45)
[2021-07-21] MEDS ORDERED: methaDONE HCL 40 MG DISPERSABLE TABLET ONE (05:45)
[2021-07-21] MEDS: GABAPENTIN 300 MG CAPSULE PO PRN ×3 (06:40→21:33)
[2021-07-21] MEDS: hydrOXYzine PAMOATE 25 MG CAPSULE (FP) PO PRN ×4 (06:40→21:34)
[2021-07-21] MEDS: NICOTINE 7 MG/24 HOURS TOPICAL PATCH TD SCH (10:02)
[2021-07-21] MEDS: PRENATAL VITAMINS W/ FOLIC ACID TABLET (FP) PO SCH (10:02)
[2021-07-21] MEDS: METHOCARBAMOL 500 MG TABLET PO PRN (10:03)
[2021-07-21] MEDS: IBUPROFEN 400 MG TABLET (FP) PO PRN ×2 (13:59→21:33)
[2021-07-21] MEDS: ATORVASTATIN CA 10 MG TABLET (FP) PO SCH (21:33)
[2021-07-21] MEDS: THIAMINE HCL 100 MG TABLET (FP) PO SCH (21:33)
[2021-07-21] MEDS: traZODone HCL 50 MG TABLET (FP) PO SCH (21:33)
[2021-07-21] MEDS: MELATONIN 5 MG TABLETS PO SCH (22:11)
[2021-07-22] MEDS ORDERED: methaDONE HCL 40 MG DISPERSABLE TABLET ONE (03:32)
[2021-07-22] MEDS ORDERED: methaDONE HCL 10 MG TABLET ONE (03:32)
[2021-07-22] MEDS: hydrOXYzine PAMOATE 25 MG CAPSULE (FP) PO PRN ×2 (06:00→10:38)
[2021-07-22] MEDS: GABAPENTIN 300 MG CAPSULE PO PRN ×3 (06:01→21:55)
[2021-07-22] MEDS: PRENATAL VITAMINS W/ FOLIC ACID TABLET (FP) PO SCH (10:37)
[2021-07-22] MEDS: METHOCARBAMOL 500 MG TABLET PO PRN ×2 (10:38→21:56)
[2021-07-22] MEDS: IBUPROFEN 400 MG TABLET (FP) PO PRN (10:38)
[2021-07-22] MEDS: NICOTINE 7 MG/24 HOURS TOPICAL PATCH TD SCH (10:39)
[2021-07-22] MEDS: BENZOCAINE 20 % GEL TUBE MM PRN (14:46)
[2021-07-22] MEDS: traZODone HCL 50 MG TABLET (FP) PO SCH (21:55)
[2021-07-22] MEDS: ATORVASTATIN CA 10 MG TABLET (FP) PO SCH (21:55)
[2021-07-22] MEDS: THIAMINE HCL 100 MG TABLET (FP) PO SCH (21:56)
[2021-07-22] MEDS: MELATONIN 5 MG TABLETS PO SCH (23:28)
[2021-07-23] MEDS ORDERED: methaDONE HCL 10 MG TABLET ONE (04:37)
[2021-07-23] MEDS ORDERED: methaDONE HCL 40 MG DISPERSABLE TABLET ONE (04:37)
[2021-07-23] MEDS: hydrOXYzine PAMOATE 25 MG CAPSULE (FP) PO PRN ×3 (06:22→14:23)
[2021-07-23] MEDS: GABAPENTIN 300 MG CAPSULE PO PRN ×3 (06:22→21:29)
[2021-07-23] MEDS: PRENATAL VITAMINS W/ FOLIC ACID TABLET (FP) PO SCH (10:13)
[2021-07-23] MEDS: METHOCARBAMOL 500 MG TABLET PO PRN ×2 (10:13→21:29)
[2021-07-23] MEDS: NICOTINE 7 MG/24 HOURS TOPICAL PATCH TD SCH (10:19)
[2021-07-23] MEDS: NICOTINE 10 MG CARTRIDGE (INHALER) IH PRN (10:32)
[2021-07-23] MEDS: traZODone HCL 50 MG TABLET (FP) PO SCH (21:28)
[2021-07-23] MEDS: ATORVASTATIN CA 10 MG TABLET (FP) PO SCH (21:29)
[2021-07-23] MEDS: IBUPROFEN 400 MG TABLET (FP) PO PRN (21:29)
[2021-07-23] MEDS: THIAMINE HCL 100 MG TABLET (FP) PO SCH (21:29)
[2021-07-23] MEDS: MELATONIN 5 MG TABLETS PO SCH (21:32)
[2021-07-24] MEDS ORDERED: methaDONE HCL 40 MG DISPERSABLE TABLET ONE (02:54)
[2021-07-24] MEDS ORDERED: methaDONE HCL 10 MG TABLET ONE (02:54)
[2021-07-24] MEDS: hydrOXYzine PAMOATE 25 MG CAPSULE (FP) PO PRN ×3 (06:31→14:05)
[2021-07-24] MEDS: GABAPENTIN 300 MG CAPSULE PO PRN ×3 (06:31→21:38)
[2021-07-24] MEDS: PRENATAL VITAMINS W/ FOLIC ACID TABLET (FP) PO SCH (10:08)
[2021-07-24] MEDS: NICOTINE 7 MG/24 HOURS TOPICAL PATCH TD SCH (10:08)
[2021-07-24] MEDS: METHOCARBAMOL 500 MG TABLET PO PRN ×2 (10:09→21:37)
[2021-07-24] MEDS: NICOTINE 10 MG CARTRIDGE (INHALER) IH PRN (10:10)
[2021-07-24] MEDS ORDERED: MODERNA COVID-19 VACC,MRNA/PF 50 MCG/0.25 ML EACH IM ONE (12:00)
[2021-07-24] MEDS: traZODone HCL 50 MG TABLET (FP) PO SCH (21:36)
[2021-07-24] MEDS: ATORVASTATIN CA 10 MG TABLET (FP) PO SCH (21:37)
[2021-07-24] MEDS: MELATONIN 5 MG TABLETS PO SCH (21:37)
[2021-07-24] MEDS: THIAMINE HCL 100 MG TABLET (FP) PO SCH (21:37)
[2021-07-25] MEDS ORDERED: methaDONE HCL 10 MG TABLET ONE (06:14)
[2021-07-25] MEDS ORDERED: methaDONE HCL 40 MG DISPERSABLE TABLET ONE (06:14)
[2021-07-25] MEDS: hydrOXYzine PAMOATE 25 MG CAPSULE (FP) PO PRN ×3 (06:21→17:46)
[2021-07-25] MEDS: GABAPENTIN 300 MG CAPSULE PO PRN ×3 (06:22→22:03)
[2021-07-25] MEDS: NICOTINE 7 MG/24 HOURS TOPICAL PATCH TD SCH (09:46)
[2021-07-25] MEDS: PRENATAL VITAMINS W/ FOLIC ACID TABLET (FP) PO SCH (09:46)
[2021-07-25] MEDS: METHOCARBAMOL 500 MG TABLET PO PRN ×2 (09:47→22:03)
[2021-07-25] MEDS: SELENIUM SULFIDE 2.5% LOTION 4 OZ. TP SCH (12:08)
[2021-07-25] MEDS: IBUPROFEN 400 MG TABLET (FP) PO PRN (13:49)
[2021-07-25] MEDS: MELATONIN 5 MG TABLETS PO SCH (22:03)
[2021-07-25] MEDS: traZODone HCL 50 MG TABLET (FP) PO SCH (22:03)
[2021-07-25] MEDS: ATORVASTATIN CA 10 MG TABLET (FP) PO SCH (22:03)
[2021-07-25] MEDS: THIAMINE HCL 100 MG TABLET (FP) PO SCH (22:03)
[2021-07-26] MEDS ORDERED: methaDONE HCL 10 MG TABLET ONE (02:39)
[2021-07-26] MEDS ORDERED: methaDONE HCL 40 MG DISPERSABLE TABLET ONE (02:40)
[2021-07-26] MEDS: GABAPENTIN 300 MG CAPSULE PO PRN ×3 (06:10→21:26)
[2021-07-26] MEDS: hydrOXYzine PAMOATE 25 MG CAPSULE (FP) PO PRN ×3 (06:10→18:12)
[2021-07-26] MEDS: METHOCARBAMOL 500 MG TABLET PO PRN ×3 (08:35→21:26)
[2021-07-26] MEDS: NICOTINE 7 MG/24 HOURS TOPICAL PATCH TD SCH (09:55)
[2021-07-26] MEDS: PRENATAL VITAMINS W/ FOLIC ACID TABLET (FP) PO SCH (09:55)
[2021-07-26] MEDS: SELENIUM SULFIDE 2.5% LOTION 4 OZ. TP SCH (09:56)
[2021-07-26] MEDS: traZODone HCL 50 MG TABLET (FP) PO SCH (21:26)
[2021-07-26] MEDS: THIAMINE HCL 100 MG TABLET (FP) PO SCH (21:26)
[2021-07-26] MEDS: ATORVASTATIN CA 10 MG TABLET (FP) PO SCH (21:26)
[2021-07-26] MEDS: MELATONIN 5 MG TABLETS PO SCH (21:26)
[2021-07-27] MEDS ORDERED: methaDONE HCL 10 MG TABLET ONE (03:01)
[2021-07-27] MEDS ORDERED: methaDONE HCL 40 MG DISPERSABLE TABLET ONE (03:02)
[2021-07-27] MEDS: hydrOXYzine PAMOATE 25 MG CAPSULE (FP) PO PRN ×4 (06:21→18:39)
[2021-07-27] MEDS: GABAPENTIN 300 MG CAPSULE PO PRN ×3 (06:21→21:39)
[2021-07-27] MEDS: NICOTINE 10 MG CARTRIDGE (INHALER) IH PRN ×2 (09:09→19:22)
[2021-07-27] MEDS: NICOTINE 7 MG/24 HOURS TOPICAL PATCH TD SCH (10:02)
[2021-07-27] MEDS: METHOCARBAMOL 500 MG TABLET PO PRN ×2 (10:02→21:38)
[2021-07-27] MEDS: PRENATAL VITAMINS W/ FOLIC ACID TABLET (FP) PO SCH (10:02)
[2021-07-27] MEDS: SELENIUM SULFIDE 2.5% LOTION 4 OZ. TP SCH (10:05)
[2021-07-27] MEDS: ATORVASTATIN CA 10 MG TABLET (FP) PO SCH (21:37)
[2021-07-27] MEDS: traZODone HCL 50 MG TABLET (FP) PO SCH (21:37)
[2021-07-27] MEDS: IBUPROFEN 400 MG TABLET (FP) PO PRN (21:38)
[2021-07-27] MEDS: THIAMINE HCL 100 MG TABLET (FP) PO SCH (21:38)
[2021-07-27] MEDS: MELATONIN 5 MG TABLETS PO SCH (21:39)
[2021-07-28] MEDS ORDERED: methaDONE HCL 10 MG TABLET ONE (05:12)
[2021-07-28] MEDS ORDERED: methaDONE HCL 40 MG DISPERSABLE TABLET ONE (05:12)
[2021-07-28] MEDS: GABAPENTIN 300 MG CAPSULE PO PRN ×3 (06:07→21:49)
[2021-07-28] MEDS: hydrOXYzine PAMOATE 25 MG CAPSULE (FP) PO PRN ×4 (06:07→21:49)
[2021-07-28] MEDS: PRENATAL VITAMINS W/ FOLIC ACID TABLET (FP) PO SCH (10:04)
[2021-07-28] MEDS: NICOTINE 7 MG/24 HOURS TOPICAL PATCH TD SCH (10:04)
[2021-07-28] MEDS: METHOCARBAMOL 500 MG TABLET PO PRN (10:04)
[2021-07-28] MEDS: SELENIUM SULFIDE 2.5% LOTION 4 OZ. TP SCH (10:06)
[2021-07-28] MEDS: ATORVASTATIN CA 10 MG TABLET (FP) PO SCH (21:49)
[2021-07-28] MEDS: THIAMINE HCL 100 MG TABLET (FP) PO SCH (21:49)
[2021-07-28] MEDS: traZODone HCL 50 MG TABLET (FP) PO SCH (21:49)
[2021-07-28] MEDS: MELATONIN 5 MG TABLETS PO SCH (21:50)
[2021-07-29] MEDS ORDERED: methaDONE HCL 10 MG TABLET ONE (02:48)
[2021-07-29] MEDS ORDERED: methaDONE HCL 40 MG DISPERSABLE TABLET ONE (02:48)
[2021-07-29] MEDS: GABAPENTIN 300 MG CAPSULE PO PRN ×2 (06:20→21:15)
[2021-07-29] MEDS: hydrOXYzine PAMOATE 25 MG CAPSULE (FP) PO PRN ×4 (06:20→21:15)
[2021-07-29] MEDS: NICOTINE 10 MG CARTRIDGE (INHALER) IH PRN (08:55)
[2021-07-29] MEDS: METHOCARBAMOL 500 MG TABLET PO PRN ×2 (09:50→21:17)
[2021-07-29] MEDS: PRENATAL VITAMINS W/ FOLIC ACID TABLET (FP) PO SCH (09:50)
[2021-07-29] MEDS: NICOTINE 7 MG/24 HOURS TOPICAL PATCH TD SCH (09:50)
[2021-07-29] MEDS: SELENIUM SULFIDE 2.5% LOTION 4 OZ. TP SCH (09:54)
[2021-07-29] MEDS: ATORVASTATIN CA 10 MG TABLET (FP) PO SCH (21:15)
[2021-07-29] MEDS: THIAMINE HCL 100 MG TABLET (FP) PO SCH (21:15)
[2021-07-29] MEDS: traZODone HCL 50 MG TABLET (FP) PO SCH (21:15)
[2021-07-29] MEDS: MELATONIN 5 MG TABLETS PO SCH (21:15)
[2021-07-30] MEDS ORDERED: methaDONE HCL 10 MG TABLET ONE (02:45)
[2021-07-30] MEDS ORDERED: methaDONE HCL 40 MG DISPERSABLE TABLET ONE (02:45)
[2021-07-30] MEDS: GABAPENTIN 300 MG CAPSULE PO PRN ×3 (06:01→21:36)
[2021-07-30] MEDS: hydrOXYzine PAMOATE 25 MG CAPSULE (FP) PO PRN ×4 (06:01→21:35)
[2021-07-30] MEDS: METHOCARBAMOL 500 MG TABLET PO PRN ×2 (10:03→21:35)
[2021-07-30] MEDS: NICOTINE 7 MG/24 HOURS TOPICAL PATCH TD SCH (10:03)
[2021-07-30] MEDS: PRENATAL VITAMINS W/ FOLIC ACID TABLET (FP) PO SCH (10:03)
[2021-07-30] MEDS: SELENIUM SULFIDE 2.5% LOTION 4 OZ. TP SCH (10:04)
[2021-07-30] MEDS: ATORVASTATIN CA 10 MG TABLET (FP) PO SCH (21:35)
[2021-07-30] MEDS: traZODone HCL 50 MG TABLET (FP) PO SCH (21:35)
[2021-07-30] MEDS: THIAMINE HCL 100 MG TABLET (FP) PO SCH (21:35)
[2021-07-30] MEDS: MELATONIN 5 MG TABLETS PO SCH (22:15)
[2021-07-31] MEDS ORDERED: methaDONE HCL 10 MG TABLET ONE (05:01)
[2021-07-31] MEDS ORDERED: methaDONE HCL 40 MG DISPERSABLE TABLET ONE (05:02)
[2021-07-31] MEDS: hydrOXYzine PAMOATE 25 MG CAPSULE (FP) PO PRN ×4 (06:13→18:18)
[2021-07-31] MEDS: GABAPENTIN 300 MG CAPSULE PO PRN ×3 (06:14→21:51)
[2021-07-31] MEDS: NICOTINE 7 MG/24 HOURS TOPICAL PATCH TD SCH (09:57)
[2021-07-31] MEDS: PRENATAL VITAMINS W/ FOLIC ACID TABLET (FP) PO SCH (09:57)
[2021-07-31] MEDS: SELENIUM SULFIDE 2.5% LOTION 4 OZ. TP SCH (09:57)
[2021-07-31] MEDS: METHOCARBAMOL 500 MG TABLET PO PRN ×2 (09:58→21:51)
[2021-07-31] MEDS: NICOTINE 10 MG CARTRIDGE (INHALER) IH PRN (14:45)
[2021-07-31] MEDS: ATORVASTATIN CA 10 MG TABLET (FP) PO SCH (21:51)
[2021-07-31] MEDS: traZODone HCL 50 MG TABLET (FP) PO SCH (21:51)
[2021-07-31] MEDS: THIAMINE HCL 100 MG TABLET (FP) PO SCH (21:51)
[2021-07-31] MEDS: MELATONIN 5 MG TABLETS PO SCH (21:53)
[2021-08-01] MEDS ORDERED: methaDONE HCL 40 MG DISPERSABLE TABLET ONE (06:33)
[2021-08-01] MEDS ORDERED: methaDONE HCL 10 MG TABLET ONE (06:33)
[2021-08-01] MEDS: GABAPENTIN 300 MG CAPSULE PO PRN (06:34)
[2021-08-01] MEDS: hydrOXYzine PAMOATE 25 MG CAPSULE (FP) PO PRN (06:34)
[2021-08-01 07:16] VITALS: BP 108/76; PULSE 76; TEMP 96.8
[2021-08-01] MEDS: NICOTINE 7 MG/24 HOURS TOPICAL PATCH TD SCH (09:09)
[2021-08-01] MEDS: PRENATAL VITAMINS W/ FOLIC ACID TABLET (FP) PO SCH (09:09)
[2021-08-01] MEDS: METHOCARBAMOL 500 MG TABLET PO PRN (09:10)
== END 2021-08-01 09:12 | disposition home or self-care (01) | DRG 772 ==
LOC: YASAS 13:16 → Y5N 13:17
PROVIDERS: ADMIT Allergy & Immunology; ATTEND Allergy & Immunology
PROC: HZ42ZZZ Group Counseling for Substance Abuse Treatment, Cognitive-Behavioral (ICD-10-PCS; principal; 2021-07-10)
DX: F11.20 Opioid dependence, uncomplicated (principal); F10.20 Alcohol dependence, uncomplicated; F14.20 Cocaine dependence, uncomplicated; F12.20 Cannabis dependence, uncomplicated; F17.210 Nicotine dependence, cigarettes, uncomplicated; F19.280 Other psychoactive substance dependence with psychoactive substance-induced anxiety disorder; F41.8 Other specified anxiety disorders; F32.A Depression, unspecified; E78.5 Hyperlipidemia, unspecified; K08.89 Other specified disorders of teeth and supporting structures; Z56.0 Unemployment, unspecified; Z59.00 Homelessness unspecified; Z88.0 Allergy status to penicillin
CPT/HCPCS: 0013A; 91301; C9803; U0003; U0005

== ENCOUNTER 2022-03-31 18:34 | Inpatient (IN) | payer OTHER ==
[2022-03-31 20:04] VITALS: BMI 26.4
[2022-03-31] MEDS ORDERED: LOPERAMIDE HCL 2 MG CAPSULE PO PRN (21:41)
[2022-03-31] MEDS ORDERED: IBUPROFEN 600 MG TABLET (FP) PO PRN (21:41)
[2022-03-31] MEDS ORDERED: DICYCLOMINE HCL 10 MG CAPSULE PO PRN (21:41)
[2022-03-31] MEDS ORDERED: MAGNESIUM HYDROX 2400MG/30ML ORAL SUSPENSION 30 ML CUP PO PRN (21:41)
[2022-03-31] MEDS ORDERED: hydrOXYzine PAMOATE 25 MG CAPSULE (FP) PO PRN (21:41)
[2022-03-31] MEDS ORDERED: MAG HYDROX/AL HYDROX/SIMETH 30 ML UNIT-DOSE CUP PO PRN (21:41)
[2022-03-31] MEDS ORDERED: chlordiazePOXIDE HCL 25 MG CAPSULE PO PRN (21:41)
[2022-03-31] MEDS ORDERED: NICOTINE POLACRILEX 2 MG GUM BUC PRN (21:41)
[2022-03-31] MEDS ORDERED: ACETAMINOPHEN 325 MG TABLET (FP) PO PRN ×2 (21:41)
[2022-03-31] MEDS ORDERED: IBUPROFEN 400 MG TABLET (FP) PO PRN (21:41)
[2022-03-31] MEDS ORDERED: ONDANSETRON *ODT* 4 MG TABLET SL PRN (21:41)
[2022-03-31] MEDS ORDERED: BISMUTH SUBSALICYLATE 524 MG/30 ML PO PRN (21:41)
[2022-03-31] MEDS ORDERED: MAGNESIUM CITRATE 300 ML BOTTLE PO PRN (21:41)
[2022-03-31] MEDS ORDERED: NALOXONE HCL (KLOXXADO) 8 MG SPRAY NS PRN (21:41)
[2022-03-31] MEDS ORDERED: methaDONE HCL 10 MG TABLET (FOR DETOX USE ONLY) PO ONE (21:41)
[2022-03-31] MEDS ORDERED: BENZOCAINE/MENTHOL (CHLORASEPTIC ) LOZENGE MM PRN (21:41)
[2022-03-31] MEDS ORDERED: MELATONIN 5 MG TABLETS PO SCH (22:00)
[2022-03-31] MEDS ORDERED: chlordiazePOXIDE HCL 25 MG CAPSULE ONE (22:17)
[2022-03-31] MEDS ORDERED: methaDONE HCL 10 MG TABLET (FOR DETOX USE ONLY) ONE (22:17)
[2022-03-31] MEDS: chlordiazePOXIDE HCL 25 MG CAPSULE PO SCH (22:21)
[2022-03-31] MEDS: THIAMINE HCL 100 MG TABLET (FP) PO SCH (22:21)
[2022-04-01] MEDS ORDERED: chlordiazePOXIDE HCL 25 MG CAPSULE ONE ×2 (05:56→11:42)
[2022-04-01] MEDS ORDERED: methaDONE HCL 10 MG TABLET (FOR DETOX USE ONLY) ONE (09:49)
[2022-04-01] MEDS: NICOTINE 14 MG/24 HOURS TOPICAL PATCH TD SCH (11:00)
[2022-04-01] MEDS: PRENATAL VITAMINS W/ FOLIC ACID TABLET (FP) PO SCH (11:00)
[2022-04-01] MEDS: chlordiazePOXIDE HCL 25 MG CAPSULE PO SCH ×4 (11:43→22:32)
[2022-04-01] MEDS: METHOCARBAMOL 500 MG TABLET PO PRN ×2 (12:02→18:05)
[2022-04-01] MEDS: cloNIDine HCL 0.1 MG TABLET PO PRN ×3 (12:02→22:27)
[2022-04-01] MEDS: GABAPENTIN 100 MG CAPSULE PO PRN (15:56)
[2022-04-01] MEDS: traZODone HCL 50 MG TABLET (FP) PO PRN (22:27)
[2022-04-01] MEDS: THIAMINE HCL 100 MG TABLET (FP) PO SCH (22:27)
[2022-04-02] MEDS: METHOCARBAMOL 500 MG TABLET PO PRN ×3 (06:00→17:55)
[2022-04-02] MEDS: cloNIDine HCL 0.1 MG TABLET PO PRN ×3 (06:00→20:21)
[2022-04-02] MEDS: chlordiazePOXIDE HCL 25 MG CAPSULE PO SCH ×4 (06:01→22:09)
[2022-04-02] MEDS ORDERED: methaDONE HCL 10 MG TABLET (FOR DETOX USE ONLY) PO ONE (10:00)
[2022-04-02] MEDS: GABAPENTIN 100 MG CAPSULE PO PRN ×2 (10:12→17:55)
[2022-04-02] MEDS: PRENATAL VITAMINS W/ FOLIC ACID TABLET (FP) PO SCH (10:12)
[2022-04-02] MEDS: NICOTINE 14 MG/24 HOURS TOPICAL PATCH TD SCH (10:14)
[2022-04-02 11:13] LABS: HEMATOCRIT 34.5 % (35.4-49); HEMOGLOBIN 11.2 GM/dL (11.7-16.9); MCH 26.5 pg (25.7-33.7); MCHC 32.4 g/dl (32.0-35.9); MEAN CELL VOLUME 81.6 fl (80-96); MEAN PLT VOLUME 7.9 fl (7.5-11.1); PLATELET COUNT 257 10^3/uL (134-434); RBC 4.22 M/mm3 (4.00-5.60); RDW 16.2 % (11.9-15.9); WHITE BLOOD COUNT 5.6 K/mm3 (4.0-10.0)
[2022-04-02 11:28] LABS: ALBUMIN 2.7 g/dl (3.4-5.0); CALCIUM 8.6 mg/dL (8.5-10.1)
[2022-04-02 11:31] LABS: CREATININE 0.8 mg/dL (0.55-1.3)
[2022-04-02 11:32] LABS: BILIRUBIN,TOTAL 0.2 mg/dL (0.2-1); TOT PROT 5.8 g/dl (6.4-8.2)
[2022-04-02] MEDS: THIAMINE HCL 100 MG TABLET (FP) PO SCH (22:08)
[2022-04-02] MEDS: traZODone HCL 50 MG TABLET (FP) PO PRN (22:09)
[2022-04-03] MEDS ORDERED: chlordiazePOXIDE HCL 10 MG CAPSULE PO PRN
[2022-04-03] MEDS: chlordiazePOXIDE HCL 10 MG CAPSULE PO SCH ×2 (05:26→10:46)
[2022-04-03] MEDS: METHOCARBAMOL 500 MG TABLET PO PRN (05:27)
[2022-04-03] MEDS: GABAPENTIN 100 MG CAPSULE PO PRN (05:39)
[2022-04-03 09:14] VITALS: BP 111/66; PULSE 61; RESP 16; TEMP 97.5
[2022-04-03] MEDS: PRENATAL VITAMINS W/ FOLIC ACID TABLET (FP) PO SCH (10:49)
[2022-04-03] MEDS: NICOTINE 14 MG/24 HOURS TOPICAL PATCH TD SCH (10:49)
[2022-04-04] MEDS ORDERED: chlordiazePOXIDE HCL 10 MG CAPSULE PO SCH (05:00)
[2022-04-04] MEDS ORDERED: methaDONE HCL 10 MG TABLET (FOR DETOX USE ONLY) PO ONE (10:00)
[2022-04-05] MEDS ORDERED: chlordiazePOXIDE HCL 10 MG CAPSULE PO ONE (05:00)
== END 2022-04-03 12:09 | disposition left against medical advice (07) | DRG 770 ==
LOC: YASAS 18:34 → Y3N 04-01 11:38
PROVIDERS: ADMIT Allergy & Immunology; ATTEND Surgery
PROC: HZ2ZZZZ Detoxification Services for Substance Abuse Treatment (ICD-10-PCS; principal; 2022-04-01)
DX: F11.23 Opioid dependence with withdrawal (principal); F10.230 Alcohol dependence with withdrawal, uncomplicated; F13.20 Sedative, hypnotic or anxiolytic dependence, uncomplicated; F14.20 Cocaine dependence, uncomplicated; F12.20 Cannabis dependence, uncomplicated; F17.210 Nicotine dependence, cigarettes, uncomplicated; F19.282 Other psychoactive substance dependence with psychoactive substance-induced sleep disorder; F19.24 Other psychoactive substance dependence with psychoactive substance-induced mood disorder; F41.9 Anxiety disorder, unspecified; F32.A Depression, unspecified; E78.5 Hyperlipidemia, unspecified; Z56.0 Unemployment, unspecified; Z59.00 Homelessness unspecified; Z88.0 Allergy status to penicillin
CPT/HCPCS: 36415; 80053; 85027; 86780; C9803-CS; U0003; U0005

== ENCOUNTER 2022-05-05 07:12 | Inpatient (IN) | payer OTHER ==
[2022-05-05 07:42] VITALS: BMI 25.9
[2022-05-05] MEDS ORDERED: IBUPROFEN 400 MG TABLET (FP) PO PRN (08:53)
[2022-05-05] MEDS ORDERED: MAG HYDROX/AL HYDROX/SIMETH 30 ML UNIT-DOSE CUP PO PRN (08:53)
[2022-05-05] MEDS ORDERED: LOPERAMIDE HCL 2 MG CAPSULE PO PRN (08:53)
[2022-05-05] MEDS ORDERED: IBUPROFEN 600 MG TABLET (FP) PO PRN (08:53)
[2022-05-05] MEDS ORDERED: BISMUTH SUBSALICYLATE 524 MG/30 ML PO PRN (08:53)
[2022-05-05] MEDS ORDERED: BENZOCAINE/MENTHOL (CHLORASEPTIC ) LOZENGE MM PRN (08:53)
[2022-05-05] MEDS ORDERED: ACETAMINOPHEN 325 MG TABLET (FP) PO PRN ×2 (08:53)
[2022-05-05] MEDS ORDERED: DICYCLOMINE HCL 10 MG CAPSULE PO PRN (08:53)
[2022-05-05] MEDS ORDERED: MAGNESIUM HYDROX 2400MG/30ML ORAL SUSPENSION 30 ML CUP PO PRN (08:53)
[2022-05-05] MEDS ORDERED: POLYETHYLENE GLYCOL (HEALTHYLAX) 3350 17 GM PACKET PO PRN (08:53)
[2022-05-05] MEDS ORDERED: NALOXONE HCL (KLOXXADO) 8 MG SPRAY NS PRN (08:53)
[2022-05-05] MEDS ORDERED: chlordiazePOXIDE HCL 25 MG CAPSULE ONE (09:32)
[2022-05-05] MEDS: chlordiazePOXIDE HCL 25 MG CAPSULE PO PRN ×2 (09:40→13:40)
[2022-05-05] MEDS ORDERED: methaDONE HCL 10 MG TABLET (FOR DETOX USE ONLY) PO ONE (10:30)
[2022-05-05] MEDS: PRENATAL VITAMINS W/ FOLIC ACID TABLET (FP) PO SCH (10:33)
[2022-05-05] MEDS: chlordiazePOXIDE HCL 25 MG CAPSULE PO SCH ×3 (10:33→22:05)
[2022-05-05] MEDS: NICOTINE 7 MG/24 HOURS TOPICAL PATCH TD SCH (10:33)
[2022-05-05] MEDS: METHOCARBAMOL 500 MG TABLET PO PRN (13:39)
[2022-05-05] MEDS: NICOTINE 10 MG CARTRIDGE (INHALER) IH PRN (17:30)
[2022-05-05] MEDS: MELATONIN 5 MG TABLETS PO SCH (22:06)
[2022-05-05] MEDS: THIAMINE HCL 100 MG TABLET (FP) PO SCH (22:06)
[2022-05-06] MEDS: chlordiazePOXIDE HCL 25 MG CAPSULE PO SCH ×4 (05:24→22:02)
[2022-05-06] MEDS: chlordiazePOXIDE HCL 25 MG CAPSULE PO PRN ×2 (08:21→19:38)
[2022-05-06] MEDS: PRENATAL VITAMINS W/ FOLIC ACID TABLET (FP) PO SCH (10:06)
[2022-05-06] MEDS: NICOTINE 7 MG/24 HOURS TOPICAL PATCH TD SCH (10:06)
[2022-05-06] MEDS: cloNIDine HCL 0.1 MG TABLET PO PRN (11:21)
[2022-05-06] MEDS: METHOCARBAMOL 500 MG TABLET PO PRN ×2 (11:21→17:24)
[2022-05-06 12:24] LABS: ALBUMIN 2.9 g/dl (3.4-5.0); BLOOD UREA NITROGEN 14.6 mg/dL (7-18); CALCIUM 8.6 mg/dL (8.5-10.1)
[2022-05-06 12:27] LABS: CREATININE 0.7 mg/dL (0.55-1.3)
[2022-05-06 12:29] LABS: BILIRUBIN,TOTAL 0.2 mg/dL (0.2-1); TOT PROT 6.3 g/dl (6.4-8.2)
[2022-05-06 12:47] LABS: HEMATOCRIT 38.4 % (35.4-49); MCH 25.1 pg (25.7-33.7); MCHC 31.3 g/dl (32.0-35.9); MEAN CELL VOLUME 80.2 fl (80-96); MEAN PLT VOLUME 8.4 fl (7.5-11.1); PLATELET COUNT 287 10^3/uL (134-434); RBC 4.79 M/mm3 (4.00-5.60); RDW 16.8 % (11.9-15.9); WHITE BLOOD COUNT 6.5 K/mm3 (4.0-10.0)
[2022-05-06] MEDS: NICOTINE 10 MG CARTRIDGE (INHALER) IH PRN (15:41)
[2022-05-06] MEDS: MELATONIN 5 MG TABLETS PO SCH (22:03)
[2022-05-06] MEDS: THIAMINE HCL 100 MG TABLET (FP) PO SCH (22:03)
[2022-05-07] MEDS: chlordiazePOXIDE HCL 25 MG CAPSULE PO SCH ×4 (05:09→22:04)
[2022-05-07] MEDS: METHOCARBAMOL 500 MG TABLET PO PRN ×3 (05:16→17:19)
[2022-05-07] MEDS: cloNIDine HCL 0.1 MG TABLET PO PRN (05:16)
[2022-05-07] MEDS ORDERED: methaDONE HCL 10 MG TABLET PO SCH (09:30)
[2022-05-07] MEDS: PRENATAL VITAMINS W/ FOLIC ACID TABLET (FP) PO SCH (10:00)
[2022-05-07] MEDS ORDERED: methaDONE 40 MG, methaDONE 20 MG PO ONE (10:00)
[2022-05-07] MEDS: NICOTINE 7 MG/24 HOURS TOPICAL PATCH TD SCH (10:00)
[2022-05-07] MEDS ORDERED: methaDONE HCL 10 MG TABLET (FOR DETOX USE ONLY) PO ONE (10:00)
[2022-05-07] MEDS: NICOTINE 10 MG CARTRIDGE (INHALER) IH PRN (12:33)
[2022-05-07] MEDS: chlordiazePOXIDE HCL 25 MG CAPSULE PO PRN ×2 (13:23→19:03)
[2022-05-07] MEDS: GABAPENTIN 300 MG CAPSULE PO SCH ×2 (13:23→22:04)
[2022-05-07] MEDS: MIRTAZAPINE 15 MG TABLET (FP) PO SCH (22:04)
[2022-05-07] MEDS: MELATONIN 5 MG TABLETS PO SCH (22:04)
[2022-05-07] MEDS: THIAMINE HCL 100 MG TABLET (FP) PO SCH (22:04)
[2022-05-08] MEDS: chlordiazePOXIDE HCL 10 MG CAPSULE PO PRN ×4 (01:34→19:10)
[2022-05-08] MEDS: GABAPENTIN 300 MG CAPSULE PO SCH ×3 (05:01→22:01)
[2022-05-08] MEDS: chlordiazePOXIDE HCL 10 MG CAPSULE PO SCH ×4 (05:01→22:01)
[2022-05-08] MEDS: methaDONE 40 MG, methaDONE 20 MG PO SCH (05:02)
[2022-05-08] MEDS: NICOTINE 10 MG CARTRIDGE (INHALER) IH PRN ×2 (05:56→17:12)
[2022-05-08] MEDS: PRENATAL VITAMINS W/ FOLIC ACID TABLET (FP) PO SCH (10:07)
[2022-05-08] MEDS: SELENIUM SULFIDE 2.5% LOTION 4 OZ. TP SCH (10:07)
[2022-05-08] MEDS: NICOTINE 7 MG/24 HOURS TOPICAL PATCH TD SCH (10:08)
[2022-05-08] MEDS: METHOCARBAMOL 500 MG TABLET PO PRN ×2 (10:09→17:16)
[2022-05-08] MEDS: THIAMINE HCL 100 MG TABLET (FP) PO SCH (22:00)
[2022-05-08] MEDS: MIRTAZAPINE 15 MG TABLET (FP) PO SCH (22:00)
[2022-05-08] MEDS: MELATONIN 5 MG TABLETS PO SCH (22:00)
[2022-05-09] MEDS: METHOCARBAMOL 500 MG TABLET PO PRN ×3 (01:57→19:51)
[2022-05-09] MEDS: chlordiazePOXIDE HCL 10 MG CAPSULE PO SCH ×2 (05:33→17:34)
[2022-05-09] MEDS: methaDONE 40 MG, methaDONE 20 MG PO SCH (05:34)
[2022-05-09] MEDS: GABAPENTIN 300 MG CAPSULE PO SCH ×2 (05:34→13:04)
[2022-05-09] MEDS ORDERED: methaDONE HCL 10 MG TABLET (FOR DETOX USE ONLY) PO ONE (10:00)
[2022-05-09] MEDS: NICOTINE 7 MG/24 HOURS TOPICAL PATCH TD SCH (10:05)
[2022-05-09] MEDS: PRENATAL VITAMINS W/ FOLIC ACID TABLET (FP) PO SCH (10:05)
[2022-05-09] MEDS: SELENIUM SULFIDE 2.5% LOTION 4 OZ. TP SCH (10:06)
[2022-05-09] MEDS: NICOTINE 10 MG CARTRIDGE (INHALER) IH PRN ×2 (10:06→17:35)
[2022-05-09] MEDS ORDERED: MIRTAZAPINE 15 MG TABLET (FP) PO SCH ×2 (22:00)
[2022-05-09] MEDS: MELATONIN 5 MG TABLETS PO SCH (22:05)
[2022-05-09] MEDS: THIAMINE HCL 100 MG TABLET (FP) PO SCH (22:05)
[2022-05-09] MEDS: GABAPENTIN 400 MG CAPSULE PO SCH (22:05)
[2022-05-10] MEDS ORDERED: chlordiazePOXIDE HCL 10 MG CAPSULE PO ONE (05:00)
[2022-05-10] MEDS: GABAPENTIN 400 MG CAPSULE PO SCH (05:16)
[2022-05-10] MEDS: methaDONE 40 MG, methaDONE 20 MG PO SCH (05:17)
[2022-05-10] MEDS: NICOTINE 10 MG CARTRIDGE (INHALER) IH PRN (06:39)
[2022-05-10 09:41] VITALS: BP 109/61; PULSE 83; RESP 19; TEMP 97.7
[2022-05-10] MEDS: PRENATAL VITAMINS W/ FOLIC ACID TABLET (FP) PO SCH (10:15)
[2022-05-10] MEDS: SELENIUM SULFIDE 2.5% LOTION 4 OZ. TP SCH (10:16)
[2022-05-10] MEDS: METHOCARBAMOL 500 MG TABLET PO PRN (10:16)
[2022-05-10] MEDS: NICOTINE 7 MG/24 HOURS TOPICAL PATCH TD SCH (10:16)
== END 2022-05-10 12:34 | disposition other institution (70) | DRG 773 ==
LOC: YASAS 07:12 → Y3N 09:21
PROVIDERS: ADMIT Allergy & Immunology; ATTEND Surgery
PROC: HZ2ZZZZ Detoxification Services for Substance Abuse Treatment (ICD-10-PCS; principal; 2022-05-05)
DX: F11.23 Opioid dependence with withdrawal (principal); F10.230 Alcohol dependence with withdrawal, uncomplicated; F14.20 Cocaine dependence, uncomplicated; F12.20 Cannabis dependence, uncomplicated; F17.210 Nicotine dependence, cigarettes, uncomplicated; F19.280 Other psychoactive substance dependence with psychoactive substance-induced anxiety disorder; F19.282 Other psychoactive substance dependence with psychoactive substance-induced sleep disorder; F19.24 Other psychoactive substance dependence with psychoactive substance-induced mood disorder; F32.A Depression, unspecified; G47.00 Insomnia, unspecified; Z56.0 Unemployment, unspecified; Z59.02 Unsheltered homelessness
CPT/HCPCS: 36415; 80053; 85027; 86780; 87811; 93005; 93010; C9803-CS; U0003; U0005

== ENCOUNTER 2022-05-10 12:42 | Inpatient (IN) | payer OTHER ==
[2022-05-10] MEDS ORDERED: GABAPENTIN 400 MG CAPSULE PO SCH ×2 (14:15→14:25)
[2022-05-10] MEDS ORDERED: guaiFENesin 200 MG/10 ML 10 ML UNIT-DOSE CUPS PO PRN (14:21)
[2022-05-10] MEDS ORDERED: BENZOCAINE/MENTHOL (CHLORASEPTIC ) LOZENGE MM PRN (14:21)
[2022-05-10] MEDS ORDERED: MAGNESIUM HYDROX 2400MG/30ML ORAL SUSPENSION 30 ML CUP PO PRN (14:21)
[2022-05-10] MEDS ORDERED: MAG HYDROX/AL HYDROX/SIMETH 30 ML UNIT-DOSE CUP PO PRN (14:21)
[2022-05-10] MEDS ORDERED: LOPERAMIDE HCL 2 MG CAPSULE PO PRN (14:21)
[2022-05-10] MEDS ORDERED: P-EPHED 60MG/TRIPROLIDI 2.5MG TABLET PO PRN (14:21)
[2022-05-10] MEDS ORDERED: POLYETHYLENE GLYCOL (HEALTHYLAX) 3350 17 GM PACKET PO PRN (14:21)
[2022-05-10] MEDS ORDERED: GABAPENTIN 400 MG CAPSULE PO ONE (14:26)
[2022-05-10] MEDS: hydrOXYzine PAMOATE 25 MG CAPSULE (FP) PO PRN ×2 (16:38→21:11)
[2022-05-10] MEDS: GABAPENTIN 400 MG CAPSULE PO SCH (21:10)
[2022-05-10] MEDS: THIAMINE HCL 100 MG TABLET (FP) PO SCH (21:11)
[2022-05-10] MEDS ORDERED: MELATONIN 5 MG TABLETS PO SCH (22:00)
[2022-05-10] MEDS ORDERED: MIRTAZAPINE 15 MG TABLET (FP) PO SCH (22:00)
[2022-05-11] MEDS: GABAPENTIN 400 MG CAPSULE PO SCH ×3 (05:56→21:21)
[2022-05-11] MEDS: methaDONE 40 MG, methaDONE 20 MG PO SCH (05:56)
[2022-05-11] MEDS ORDERED: methaDONE HCL 10 MG TABLET PO SCH (06:00)
[2022-05-11] MEDS: PRENATAL VITAMINS W/ FOLIC ACID TABLET (FP) PO SCH (09:55)
[2022-05-11] MEDS: NICOTINE 7 MG/24 HOURS TOPICAL PATCH TD SCH (09:55)
[2022-05-11] MEDS: hydrOXYzine PAMOATE 25 MG CAPSULE (FP) PO PRN ×2 (09:56→21:21)
[2022-05-11] MEDS: NICOTINE 10 MG CARTRIDGE (INHALER) IH PRN (10:24)
[2022-05-11] MEDS: METHOCARBAMOL 500 MG TABLET PO PRN (13:36)
[2022-05-11] MEDS: THIAMINE HCL 100 MG TABLET (FP) PO SCH (21:21)
[2022-05-11] MEDS: SUVOREXANT 10 MG TABLET PO PRN (21:23)
[2022-05-11] MEDS ORDERED: SUVOREXANT 5 MG TABLET PO PRN (22:00)
[2022-05-12] MEDS: methaDONE 40 MG, methaDONE 20 MG PO SCH (06:04)
[2022-05-12] MEDS: GABAPENTIN 400 MG CAPSULE PO SCH ×3 (06:04→21:26)
[2022-05-12] MEDS: hydrOXYzine PAMOATE 25 MG CAPSULE (FP) PO PRN ×2 (06:05→21:25)
[2022-05-12] MEDS: NICOTINE 7 MG/24 HOURS TOPICAL PATCH TD SCH (10:11)
[2022-05-12] MEDS: PRENATAL VITAMINS W/ FOLIC ACID TABLET (FP) PO SCH (10:11)
[2022-05-12] MEDS: METHOCARBAMOL 500 MG TABLET PO PRN (10:13)
[2022-05-12] MEDS: NICOTINE POLACRILEX 2 MG GUM BUC PRN (11:42)
[2022-05-12] MEDS: NICOTINE 10 MG CARTRIDGE (INHALER) IH PRN (18:09)
[2022-05-12] MEDS: THIAMINE HCL 100 MG TABLET (FP) PO SCH (21:26)
[2022-05-12] MEDS: SUVOREXANT 10 MG TABLET PO PRN (21:27)
[2022-05-12] MEDS: IBUPROFEN 400 MG TABLET (FP) PO PRN (22:31)
[2022-05-13] MEDS: hydrOXYzine PAMOATE 25 MG CAPSULE (FP) PO PRN ×3 (06:00→21:22)
[2022-05-13] MEDS: methaDONE 40 MG, methaDONE 20 MG PO SCH (06:01)
[2022-05-13] MEDS: GABAPENTIN 400 MG CAPSULE PO SCH ×3 (06:01→21:22)
[2022-05-13] MEDS: NICOTINE 10 MG CARTRIDGE (INHALER) IH PRN (07:37)
[2022-05-13] MEDS: PRENATAL VITAMINS W/ FOLIC ACID TABLET (FP) PO SCH (09:55)
[2022-05-13] MEDS: NICOTINE 7 MG/24 HOURS TOPICAL PATCH TD SCH (09:55)
[2022-05-13] MEDS: NICOTINE POLACRILEX 2 MG GUM BUC PRN (09:57)
[2022-05-13] MEDS: METHOCARBAMOL 500 MG TABLET PO PRN ×2 (14:51→21:22)
[2022-05-13] MEDS: IBUPROFEN 400 MG TABLET (FP) PO PRN (14:51)
[2022-05-13] MEDS: THIAMINE HCL 100 MG TABLET (FP) PO SCH (21:22)
[2022-05-13] MEDS: SUVOREXANT 10 MG TABLET PO PRN (21:23)
[2022-05-14] MEDS: methaDONE 40 MG, methaDONE 20 MG PO SCH (05:58)
[2022-05-14] MEDS: GABAPENTIN 400 MG CAPSULE PO SCH ×3 (05:58→21:33)
[2022-05-14] MEDS: hydrOXYzine PAMOATE 25 MG CAPSULE (FP) PO PRN ×3 (05:58→21:33)
[2022-05-14] MEDS: PRENATAL VITAMINS W/ FOLIC ACID TABLET (FP) PO SCH (10:44)
[2022-05-14] MEDS: NICOTINE 7 MG/24 HOURS TOPICAL PATCH TD SCH (10:44)
[2022-05-14] MEDS: IBUPROFEN 400 MG TABLET (FP) PO PRN (19:14)
[2022-05-14] MEDS: THIAMINE HCL 100 MG TABLET (FP) PO SCH (21:33)
[2022-05-14] MEDS: SUVOREXANT 10 MG TABLET PO PRN (21:35)
[2022-05-15] MEDS: methaDONE 40 MG, methaDONE 30 MG PO SCH (05:45)
[2022-05-15] MEDS: GABAPENTIN 400 MG CAPSULE PO SCH ×3 (05:45→21:37)
[2022-05-15] MEDS: hydrOXYzine PAMOATE 25 MG CAPSULE (FP) PO PRN ×2 (05:47→14:13)
[2022-05-15] MEDS ORDERED: methaDONE HCL 40 MG DISPERSABLE TABLET PO SCH (06:00)
[2022-05-15] MEDS: NICOTINE 10 MG CARTRIDGE (INHALER) IH PRN (09:05)
[2022-05-15] MEDS: PRENATAL VITAMINS W/ FOLIC ACID TABLET (FP) PO SCH (10:13)
[2022-05-15] MEDS: NICOTINE 7 MG/24 HOURS TOPICAL PATCH TD SCH (10:15)
[2022-05-15] MEDS: NICOTINE POLACRILEX 2 MG GUM BUC PRN (10:16)
[2022-05-15] MEDS: METHOCARBAMOL 500 MG TABLET PO PRN (10:36)
[2022-05-15] MEDS: THIAMINE HCL 100 MG TABLET (FP) PO SCH (21:37)
[2022-05-15] MEDS: SUVOREXANT 10 MG TABLET PO PRN (21:39)
[2022-05-16] MEDS: methaDONE 40 MG, methaDONE 30 MG PO SCH (05:56)
[2022-05-16] MEDS: hydrOXYzine PAMOATE 25 MG CAPSULE (FP) PO PRN ×3 (05:56→21:39)
[2022-05-16] MEDS: GABAPENTIN 400 MG CAPSULE PO SCH ×3 (05:56→21:39)
[2022-05-16] MEDS: PRENATAL VITAMINS W/ FOLIC ACID TABLET (FP) PO SCH (10:16)
[2022-05-16] MEDS: NICOTINE 7 MG/24 HOURS TOPICAL PATCH TD SCH (10:16)
[2022-05-16] MEDS: METHOCARBAMOL 500 MG TABLET PO PRN (10:17)
[2022-05-16] MEDS: NICOTINE 10 MG CARTRIDGE (INHALER) IH PRN ×2 (10:18→22:18)
[2022-05-16] MEDS: SELENIUM SULFIDE 2.5% LOTION 4 OZ. TP SCH (10:43)
[2022-05-16] MEDS: THIAMINE HCL 100 MG TABLET (FP) PO SCH (21:39)
[2022-05-16] MEDS: SUVOREXANT 10 MG TABLET PO PRN (21:39)
[2022-05-17] MEDS: GABAPENTIN 400 MG CAPSULE PO SCH ×3 (05:57→21:39)
[2022-05-17] MEDS: methaDONE 40 MG, methaDONE 30 MG PO SCH (05:57)
[2022-05-17] MEDS: hydrOXYzine PAMOATE 25 MG CAPSULE (FP) PO PRN ×3 (05:57→21:39)
[2022-05-17] MEDS: ACETAMINOPHEN 325 MG TABLET (FP) PO PRN ×2 (06:35→21:39)
[2022-05-17] MEDS: PRENATAL VITAMINS W/ FOLIC ACID TABLET (FP) PO SCH (10:30)
[2022-05-17] MEDS: METHOCARBAMOL 500 MG TABLET PO PRN ×2 (10:31→21:39)
[2022-05-17] MEDS: NICOTINE 7 MG/24 HOURS TOPICAL PATCH TD SCH (10:32)
[2022-05-17] MEDS: SELENIUM SULFIDE 2.5% LOTION 4 OZ. TP SCH (10:32)
[2022-05-17] MEDS: THIAMINE HCL 100 MG TABLET (FP) PO SCH (21:39)
[2022-05-17] MEDS: SUVOREXANT 10 MG TABLET PO PRN (21:41)
[2022-05-18] MEDS: GABAPENTIN 400 MG CAPSULE PO SCH ×3 (05:56→21:35)
[2022-05-18] MEDS: methaDONE 40 MG, methaDONE 30 MG PO SCH (05:56)
[2022-05-18] MEDS: NICOTINE 10 MG CARTRIDGE (INHALER) IH PRN (05:57)
[2022-05-18] MEDS: hydrOXYzine PAMOATE 25 MG CAPSULE (FP) PO PRN ×3 (05:57→21:37)
[2022-05-18] MEDS: SELENIUM SULFIDE 2.5% LOTION 4 OZ. TP SCH (10:12)
[2022-05-18] MEDS: METHOCARBAMOL 500 MG TABLET PO PRN ×2 (10:12→21:35)
[2022-05-18] MEDS: PRENATAL VITAMINS W/ FOLIC ACID TABLET (FP) PO SCH (10:12)
[2022-05-18] MEDS: NICOTINE 7 MG/24 HOURS TOPICAL PATCH TD SCH (10:12)
[2022-05-18] MEDS: NICOTINE POLACRILEX 2 MG GUM BUC PRN ×2 (10:13→13:49)
[2022-05-18] MEDS: THIAMINE HCL 100 MG TABLET (FP) PO SCH (21:35)
[2022-05-18] MEDS: SUVOREXANT 10 MG TABLET PO PRN (21:37)
[2022-05-19] MEDS: methaDONE 40 MG, methaDONE 30 MG PO SCH (05:55)
[2022-05-19] MEDS: GABAPENTIN 400 MG CAPSULE PO SCH ×3 (05:57→21:38)
[2022-05-19] MEDS: hydrOXYzine PAMOATE 25 MG CAPSULE (FP) PO PRN ×3 (07:00→21:38)
[2022-05-19] MEDS: PRENATAL VITAMINS W/ FOLIC ACID TABLET (FP) PO SCH (10:14)
[2022-05-19] MEDS: SELENIUM SULFIDE 2.5% LOTION 4 OZ. TP SCH (10:14)
[2022-05-19] MEDS: NICOTINE 7 MG/24 HOURS TOPICAL PATCH TD SCH (10:14)
[2022-05-19] MEDS: METHOCARBAMOL 500 MG TABLET PO PRN ×2 (10:15→18:14)
[2022-05-19] MEDS: NICOTINE POLACRILEX 2 MG GUM BUC PRN (10:15)
[2022-05-19] MEDS: NICOTINE 10 MG CARTRIDGE (INHALER) IH PRN (12:28)
[2022-05-19] MEDS: THIAMINE HCL 100 MG TABLET (FP) PO SCH (21:38)
[2022-05-19] MEDS: SUVOREXANT 10 MG TABLET PO PRN (21:39)
[2022-05-20] MEDS: NICOTINE 10 MG CARTRIDGE (INHALER) IH PRN (05:48)
[2022-05-20] MEDS: GABAPENTIN 400 MG CAPSULE PO SCH ×3 (05:49→21:51)
[2022-05-20] MEDS: methaDONE 40 MG, methaDONE 30 MG PO SCH (05:49)
[2022-05-20] MEDS: hydrOXYzine PAMOATE 25 MG CAPSULE (FP) PO PRN ×3 (09:15→21:52)
[2022-05-20] MEDS: NICOTINE 7 MG/24 HOURS TOPICAL PATCH TD SCH (10:02)
[2022-05-20] MEDS: PRENATAL VITAMINS W/ FOLIC ACID TABLET (FP) PO SCH (10:02)
[2022-05-20] MEDS: METHOCARBAMOL 500 MG TABLET PO PRN ×2 (10:03→21:52)
[2022-05-20] MEDS: SELENIUM SULFIDE 2.5% LOTION 4 OZ. TP SCH (10:03)
[2022-05-20] MEDS: THIAMINE HCL 100 MG TABLET (FP) PO SCH (21:51)
[2022-05-20] MEDS: SUVOREXANT 10 MG TABLET PO PRN (21:51)
[2022-05-21] MEDS: GABAPENTIN 400 MG CAPSULE PO SCH ×3 (05:49→21:38)
[2022-05-21] MEDS: methaDONE 40 MG, methaDONE 30 MG PO SCH (05:49)
[2022-05-21] MEDS: NICOTINE 10 MG CARTRIDGE (INHALER) IH PRN ×2 (05:50→10:15)
[2022-05-21] MEDS: METHOCARBAMOL 500 MG TABLET PO PRN (10:14)
[2022-05-21] MEDS: SELENIUM SULFIDE 2.5% LOTION 4 OZ. TP SCH (10:15)
[2022-05-21] MEDS: NICOTINE 7 MG/24 HOURS TOPICAL PATCH TD SCH (10:15)
[2022-05-21] MEDS: PRENATAL VITAMINS W/ FOLIC ACID TABLET (FP) PO SCH (10:15)
[2022-05-21] MEDS: hydrOXYzine PAMOATE 25 MG CAPSULE (FP) PO PRN ×2 (14:03→21:41)
[2022-05-21] MEDS: THIAMINE HCL 100 MG TABLET (FP) PO SCH (21:38)
[2022-05-21] MEDS: SUVOREXANT 10 MG TABLET PO PRN (21:39)
[2022-05-22] MEDS: GABAPENTIN 400 MG CAPSULE PO SCH ×3 (05:39→21:40)
[2022-05-22] MEDS: methaDONE 40 MG, methaDONE 30 MG PO SCH (05:39)
[2022-05-22] MEDS: hydrOXYzine PAMOATE 25 MG CAPSULE (FP) PO PRN ×2 (05:39→21:41)
[2022-05-22] MEDS: NICOTINE 10 MG CARTRIDGE (INHALER) IH PRN ×3 (06:59→21:54)
[2022-05-22] MEDS: METHOCARBAMOL 500 MG TABLET PO PRN ×2 (10:20→21:41)
[2022-05-22] MEDS: NICOTINE 7 MG/24 HOURS TOPICAL PATCH TD SCH (10:21)
[2022-05-22] MEDS: PRENATAL VITAMINS W/ FOLIC ACID TABLET (FP) PO SCH (10:21)
[2022-05-22] MEDS: SELENIUM SULFIDE 2.5% LOTION 4 OZ. TP SCH (10:21)
[2022-05-22] MEDS: ACETAMINOPHEN 325 MG TABLET (FP) PO PRN (13:25)
[2022-05-22] MEDS: SUVOREXANT 10 MG TABLET PO PRN (21:40)
[2022-05-22] MEDS: THIAMINE HCL 100 MG TABLET (FP) PO SCH (21:41)
[2022-05-23] MEDS: GABAPENTIN 400 MG CAPSULE PO SCH ×3 (05:47→21:43)
[2022-05-23] MEDS: methaDONE 40 MG, methaDONE 30 MG PO SCH (05:47)
[2022-05-23] MEDS: hydrOXYzine PAMOATE 25 MG CAPSULE (FP) PO PRN ×3 (07:07→21:44)
[2022-05-23] MEDS: NICOTINE 10 MG CARTRIDGE (INHALER) IH PRN ×2 (07:07→10:11)
[2022-05-23] MEDS: METHOCARBAMOL 500 MG TABLET PO PRN ×2 (10:11→21:44)
[2022-05-23] MEDS: NICOTINE 7 MG/24 HOURS TOPICAL PATCH TD SCH (10:43)
[2022-05-23] MEDS: PRENATAL VITAMINS W/ FOLIC ACID TABLET (FP) PO SCH (10:43)
[2022-05-23] MEDS: SUVOREXANT 10 MG TABLET PO PRN (21:43)
[2022-05-23] MEDS: THIAMINE HCL 100 MG TABLET (FP) PO SCH (21:44)
[2022-05-24] MEDS: NICOTINE 10 MG CARTRIDGE (INHALER) IH PRN ×3 (05:51→17:31)
[2022-05-24] MEDS: GABAPENTIN 400 MG CAPSULE PO SCH ×3 (05:51→21:34)
[2022-05-24] MEDS: methaDONE 40 MG, methaDONE 30 MG PO SCH (05:51)
[2022-05-24] MEDS: NICOTINE 7 MG/24 HOURS TOPICAL PATCH TD SCH (09:48)
[2022-05-24] MEDS: METHOCARBAMOL 500 MG TABLET PO PRN ×2 (09:48→21:33)
[2022-05-24] MEDS: hydrOXYzine PAMOATE 25 MG CAPSULE (FP) PO PRN ×3 (09:48→21:34)
[2022-05-24] MEDS: PRENATAL VITAMINS W/ FOLIC ACID TABLET (FP) PO SCH (09:48)
[2022-05-24] MEDS: SUVOREXANT 10 MG TABLET PO PRN (21:33)
[2022-05-24] MEDS: THIAMINE HCL 100 MG TABLET (FP) PO SCH (21:34)
[2022-05-25] MEDS: NICOTINE 10 MG CARTRIDGE (INHALER) IH PRN ×2 (05:54→12:58)
[2022-05-25] MEDS: methaDONE 40 MG, methaDONE 30 MG PO SCH (05:55)
[2022-05-25] MEDS: GABAPENTIN 400 MG CAPSULE PO SCH ×3 (05:55→21:31)
[2022-05-25 07:21] VITALS: RESP 18
[2022-05-25] MEDS: hydrOXYzine PAMOATE 25 MG CAPSULE (FP) PO PRN ×3 (08:54→21:31)
[2022-05-25] MEDS: METHOCARBAMOL 500 MG TABLET PO PRN ×2 (10:02→21:31)
[2022-05-25] MEDS: PRENATAL VITAMINS W/ FOLIC ACID TABLET (FP) PO SCH (10:02)
[2022-05-25] MEDS: NICOTINE 7 MG/24 HOURS TOPICAL PATCH TD SCH (10:02)
[2022-05-25] MEDS: THIAMINE HCL 100 MG TABLET (FP) PO SCH (21:31)
[2022-05-25] MEDS: SUVOREXANT 10 MG TABLET PO PRN (21:32)
[2022-05-26] MEDS: GABAPENTIN 400 MG CAPSULE PO SCH ×3 (05:53→21:38)
[2022-05-26] MEDS: methaDONE 40 MG, methaDONE 30 MG PO SCH (05:53)
[2022-05-26] MEDS: hydrOXYzine PAMOATE 25 MG CAPSULE (FP) PO PRN ×2 (05:54→21:38)
[2022-05-26] MEDS: NICOTINE 10 MG CARTRIDGE (INHALER) IH PRN (10:17)
[2022-05-26] MEDS: NICOTINE 7 MG/24 HOURS TOPICAL PATCH TD SCH (10:17)
[2022-05-26] MEDS: METHOCARBAMOL 500 MG TABLET PO PRN ×2 (10:17→21:38)
[2022-05-26] MEDS: PRENATAL VITAMINS W/ FOLIC ACID TABLET (FP) PO SCH (10:17)
[2022-05-26] MEDS: THIAMINE HCL 100 MG TABLET (FP) PO SCH (21:38)
[2022-05-26] MEDS: SUVOREXANT 10 MG TABLET PO PRN (21:39)
[2022-05-27] MEDS: methaDONE 40 MG, methaDONE 30 MG PO SCH (06:12)
[2022-05-27] MEDS: GABAPENTIN 400 MG CAPSULE PO SCH ×3 (06:12→21:40)
[2022-05-27] MEDS: NICOTINE 10 MG CARTRIDGE (INHALER) IH PRN ×2 (07:34→10:29)
[2022-05-27] MEDS: hydrOXYzine PAMOATE 25 MG CAPSULE (FP) PO PRN ×3 (07:34→21:40)
[2022-05-27] MEDS: PRENATAL VITAMINS W/ FOLIC ACID TABLET (FP) PO SCH (10:29)
[2022-05-27] MEDS: NICOTINE 7 MG/24 HOURS TOPICAL PATCH TD SCH (10:29)
[2022-05-27] MEDS: METHOCARBAMOL 500 MG TABLET PO PRN ×2 (10:30→21:40)
[2022-05-27] MEDS: THIAMINE HCL 100 MG TABLET (FP) PO SCH (21:40)
[2022-05-27] MEDS: SUVOREXANT 10 MG TABLET PO PRN (21:40)
[2022-05-28] MEDS: GABAPENTIN 400 MG CAPSULE PO SCH ×3 (05:51→21:25)
[2022-05-28] MEDS: methaDONE 40 MG, methaDONE 30 MG PO SCH (05:51)
[2022-05-28] MEDS: NICOTINE 10 MG CARTRIDGE (INHALER) IH PRN ×3 (05:53→21:25)
[2022-05-28] MEDS: PRENATAL VITAMINS W/ FOLIC ACID TABLET (FP) PO SCH (10:10)
[2022-05-28] MEDS: NICOTINE 7 MG/24 HOURS TOPICAL PATCH TD SCH (10:10)
[2022-05-28] MEDS: hydrOXYzine PAMOATE 25 MG CAPSULE (FP) PO PRN ×2 (10:11→21:24)
[2022-05-28] MEDS: METHOCARBAMOL 500 MG TABLET PO PRN ×2 (10:12→21:25)
[2022-05-28] MEDS: SUVOREXANT 10 MG TABLET PO PRN (21:24)
[2022-05-28] MEDS: THIAMINE HCL 100 MG TABLET (FP) PO SCH (21:25)
[2022-05-29] MEDS: GABAPENTIN 400 MG CAPSULE PO SCH ×3 (05:50→21:22)
[2022-05-29] MEDS: methaDONE 40 MG, methaDONE 30 MG PO SCH (05:50)
[2022-05-29] MEDS: NICOTINE 10 MG CARTRIDGE (INHALER) IH PRN ×3 (05:51→21:24)
[2022-05-29] MEDS: hydrOXYzine PAMOATE 25 MG CAPSULE (FP) PO PRN ×2 (08:06→21:23)
[2022-05-29] MEDS: NICOTINE 7 MG/24 HOURS TOPICAL PATCH TD SCH (10:12)
[2022-05-29] MEDS: PRENATAL VITAMINS W/ FOLIC ACID TABLET (FP) PO SCH (10:12)
[2022-05-29] MEDS: METHOCARBAMOL 500 MG TABLET PO PRN ×2 (10:13→21:22)
[2022-05-29] MEDS: THIAMINE HCL 100 MG TABLET (FP) PO SCH (21:22)
[2022-05-29] MEDS ORDERED: SUVOREXANT 10 MG TABLET PO PRN (22:00)
[2022-05-30] MEDS: NICOTINE 10 MG CARTRIDGE (INHALER) IH PRN (05:50)
[2022-05-30] MEDS: methaDONE 40 MG, methaDONE 30 MG PO SCH (05:51)
[2022-05-30] MEDS: GABAPENTIN 400 MG CAPSULE PO SCH (05:51)
[2022-05-30 07:53] VITALS: BP 106/71; PULSE 59; TEMP 97.2
[2022-05-30] MEDS: NICOTINE 7 MG/24 HOURS TOPICAL PATCH TD SCH (09:50)
[2022-05-30] MEDS: METHOCARBAMOL 500 MG TABLET PO PRN (09:52)
[2022-05-30] MEDS: PRENATAL VITAMINS W/ FOLIC ACID TABLET (FP) PO SCH (09:52)
[2022-05-30] MEDS: hydrOXYzine PAMOATE 25 MG CAPSULE (FP) PO PRN (09:52)
== END 2022-05-30 10:50 | disposition home or self-care (01) | DRG 772 ==
LOC: YASAS 12:42 → Y5N 12:43
PROVIDERS: ADMIT Allergy & Immunology; ATTEND Psychiatry & Neurology Pain Medicine
PROC: HZ42ZZZ Group Counseling for Substance Abuse Treatment, Cognitive-Behavioral (ICD-10-PCS; principal; 2022-05-10)
DX: F10.20 Alcohol dependence, uncomplicated (principal); F11.20 Opioid dependence, uncomplicated; F14.20 Cocaine dependence, uncomplicated; F12.20 Cannabis dependence, uncomplicated; F17.210 Nicotine dependence, cigarettes, uncomplicated; Z56.0 Unemployment, unspecified; Z59.02 Unsheltered homelessness

== ENCOUNTER 2022-08-08 21:41 | Inpatient (IN) | payer OTHER ==
[2022-08-08 22:15] VITALS: BMI 30.3
[2022-08-08] MEDS ORDERED: DICYCLOMINE HCL 10 MG CAPSULE PO PRN (23:24)
[2022-08-08] MEDS ORDERED: LOPERAMIDE HCL 2 MG CAPSULE PO PRN (23:24)
[2022-08-08] MEDS ORDERED: ONDANSETRON *ODT* 4 MG TABLET SL PRN (23:24)
[2022-08-08] MEDS ORDERED: NALOXONE HCL (KLOXXADO) 8 MG SPRAY NS PRN (23:24)
[2022-08-08] MEDS ORDERED: IBUPROFEN 400 MG TABLET (FP) PO PRN (23:24)
[2022-08-08] MEDS ORDERED: MAGNESIUM HYDROX 2400MG/30ML ORAL SUSPENSION 30 ML CUP PO PRN (23:24)
[2022-08-08] MEDS ORDERED: MAG HYDROX/AL HYDROX/SIMETH 30 ML UNIT-DOSE CUP PO PRN (23:24)
[2022-08-08] MEDS ORDERED: BENZOCAINE/MENTHOL (CHLORASEPTIC ) LOZENGE MM PRN (23:24)
[2022-08-08] MEDS ORDERED: BISMUTH SUBSALICYLATE 524 MG/30 ML PO PRN (23:24)
[2022-08-08] MEDS ORDERED: ACETAMINOPHEN 325 MG TABLET (FP) PO PRN ×2 (23:24)
[2022-08-08] MEDS ORDERED: IBUPROFEN 600 MG TABLET (FP) PO PRN (23:24)
[2022-08-08] MEDS ORDERED: POLYETHYLENE GLYCOL (HEALTHYLAX) 3350 17 GM PACKET PO PRN (23:24)
[2022-08-08] MEDS ORDERED: methaDONE HCL 10 MG TABLET (FOR DETOX USE ONLY) PO ONE (23:30)
[2022-08-09] MEDS ORDERED: methaDONE HCL 10 MG TABLET PO ONE (02:02)
[2022-08-09] MEDS: chlordiazePOXIDE HCL 25 MG CAPSULE PO PRN ×3 (02:17→19:32)
[2022-08-09] MEDS: chlordiazePOXIDE HCL 25 MG CAPSULE PO SCH ×4 (05:47→22:08)
[2022-08-09] MEDS: PRENATAL VITAMINS W/ FOLIC ACID TABLET (FP) PO SCH (10:16)
[2022-08-09] MEDS: NICOTINE 14 MG/24 HOURS TOPICAL PATCH TD SCH (10:16)
[2022-08-09] MEDS: METHOCARBAMOL 500 MG TABLET PO PRN ×2 (10:17→17:26)
[2022-08-09 14:20] LABS: HEMOGLOBIN 12.2 GM/dL (11.7-16.9); MCH 26.4 pg (25.7-33.7); MEAN CELL VOLUME 82.3 fl (80-96); MEAN PLT VOLUME 8.1 fl (7.5-11.1); PLATELET COUNT 312 10^3/uL (134-434); RBC 4.61 M/mm3 (4.00-5.60); RDW 18.4 % (11.9-15.9); WHITE BLOOD COUNT 9.3 K/mm3 (4.0-10.0)
[2022-08-09 14:45] LABS: ALBUMIN 3.3 g/dl (3.4-5.0); BLOOD UREA NITROGEN 13.4 mg/dL (7-18); CALCIUM 8.7 mg/dL (8.5-10.1)
[2022-08-09 14:47] LABS: BILIRUBIN,TOTAL 0.3 mg/dL (0.2-1)
[2022-08-09 15:41] LABS: HIV INTERPRETATION NEGATIVE (NEGATIVE)
[2022-08-09] MEDS: NICOTINE 10 MG CARTRIDGE (INHALER) IH PRN (18:10)
[2022-08-09] MEDS ORDERED: MELATONIN 5 MG TABLETS PO SCH (22:00)
[2022-08-09] MEDS: THIAMINE HCL 100 MG TABLET (FP) PO SCH (22:09)
[2022-08-09] MEDS: cloNIDine HCL 0.1 MG TABLET PO PRN (22:10)
[2022-08-10] MEDS: chlordiazePOXIDE HCL 25 MG CAPSULE PO SCH ×4 (05:43→22:06)
[2022-08-10] MEDS: METHOCARBAMOL 500 MG TABLET PO PRN ×3 (05:43→22:04)
[2022-08-10] MEDS: cloNIDine HCL 0.1 MG TABLET PO PRN ×4 (05:46→22:04)
[2022-08-10] MEDS ORDERED: methaDONE HCL 40 MG DISPERSABLE TABLET PO ONE (06:00)
[2022-08-10] MEDS ORDERED: methaDONE HCL 10 MG TABLET (FOR DETOX USE ONLY) PO ONE (10:00)
[2022-08-10] MEDS: PRENATAL VITAMINS W/ FOLIC ACID TABLET (FP) PO SCH (10:06)
[2022-08-10] MEDS: NICOTINE 14 MG/24 HOURS TOPICAL PATCH TD SCH (10:09)
[2022-08-10] MEDS: NICOTINE 10 MG CARTRIDGE (INHALER) IH PRN ×3 (10:13→22:04)
[2022-08-10] MEDS: GABAPENTIN 100 MG CAPSULE PO SCH ×2 (13:33→22:04)
[2022-08-10] MEDS: chlordiazePOXIDE HCL 25 MG CAPSULE PO PRN ×2 (13:35→20:10)
[2022-08-10] MEDS: THIAMINE HCL 100 MG TABLET (FP) PO SCH (22:04)
[2022-08-10] MEDS: traZODone HCL 50 MG TABLET (FP) PO PRN (22:05)
[2022-08-11] MEDS: methaDONE 40 MG, methaDONE 10 MG PO SCH (05:22)
[2022-08-11] MEDS: GABAPENTIN 100 MG CAPSULE PO SCH ×3 (05:22→22:05)
[2022-08-11] MEDS: chlordiazePOXIDE HCL 10 MG CAPSULE PO SCH ×4 (05:22→22:04)
[2022-08-11] MEDS ORDERED: methaDONE HCL 10 MG TABLET PO SCH (06:00)
[2022-08-11] MEDS: NICOTINE 14 MG/24 HOURS TOPICAL PATCH TD SCH (10:08)
[2022-08-11] MEDS: PRENATAL VITAMINS W/ FOLIC ACID TABLET (FP) PO SCH (10:08)
[2022-08-11] MEDS: chlordiazePOXIDE HCL 10 MG CAPSULE PO PRN ×2 (13:31→19:40)
[2022-08-11] MEDS: NICOTINE 10 MG CARTRIDGE (INHALER) IH PRN ×2 (14:55→19:35)
[2022-08-11] MEDS: METHOCARBAMOL 500 MG TABLET PO PRN (17:28)
[2022-08-11] MEDS: traZODone HCL 50 MG TABLET (FP) PO PRN (22:05)
[2022-08-11] MEDS: THIAMINE HCL 100 MG TABLET (FP) PO SCH (22:05)
[2022-08-12] MEDS: methaDONE 40 MG, methaDONE 10 MG PO SCH (05:06)
[2022-08-12] MEDS: chlordiazePOXIDE HCL 10 MG CAPSULE PO SCH ×2 (05:07→17:15)
[2022-08-12] MEDS: METHOCARBAMOL 500 MG TABLET PO PRN ×2 (05:07→13:56)
[2022-08-12] MEDS: GABAPENTIN 100 MG CAPSULE PO SCH ×3 (05:09→22:05)
[2022-08-12] MEDS ORDERED: methaDONE HCL 10 MG TABLET (FOR DETOX USE ONLY) PO ONE (10:00)
[2022-08-12] MEDS: PRENATAL VITAMINS W/ FOLIC ACID TABLET (FP) PO SCH (10:13)
[2022-08-12] MEDS: NICOTINE 14 MG/24 HOURS TOPICAL PATCH TD SCH (10:13)
[2022-08-12] MEDS: NICOTINE 10 MG CARTRIDGE (INHALER) IH PRN (10:13)
[2022-08-12] MEDS: traZODone HCL 50 MG TABLET (FP) PO PRN (22:05)
[2022-08-12] MEDS: THIAMINE HCL 100 MG TABLET (FP) PO SCH (22:05)
[2022-08-13] MEDS ORDERED: chlordiazePOXIDE HCL 10 MG CAPSULE PO ONE (05:00)
[2022-08-13] MEDS: methaDONE 40 MG, methaDONE 10 MG PO SCH (05:33)
[2022-08-13] MEDS: GABAPENTIN 100 MG CAPSULE PO SCH (05:36)
[2022-08-13] MEDS: METHOCARBAMOL 500 MG TABLET PO PRN (06:12)
[2022-08-13 09:28] VITALS: BP 114/69; PULSE 86; RESP 18; TEMP 97.8
[2022-08-13] MEDS: PRENATAL VITAMINS W/ FOLIC ACID TABLET (FP) PO SCH (10:23)
[2022-08-13] MEDS: NICOTINE 10 MG CARTRIDGE (INHALER) IH PRN (10:23)
[2022-08-13] MEDS: NICOTINE 14 MG/24 HOURS TOPICAL PATCH TD SCH (10:34)
== END 2022-08-13 11:41 | disposition other institution (70) | DRG 774 ==
LOC: YASAS 21:41 → Y3N 08-09 01:24
PROVIDERS: ADMIT Allergy & Immunology; ATTEND Surgery
PROC: HZ2ZZZZ Detoxification Services for Substance Abuse Treatment (ICD-10-PCS; principal; 2022-08-09)
DX: F10.230 Alcohol dependence with withdrawal, uncomplicated (principal); F14.20 Cocaine dependence, uncomplicated; F12.20 Cannabis dependence, uncomplicated; F17.210 Nicotine dependence, cigarettes, uncomplicated; F32.A Depression, unspecified; F41.9 Anxiety disorder, unspecified; E78.5 Hyperlipidemia, unspecified; Z56.0 Unemployment, unspecified; Z59.00 Homelessness unspecified; Z88.0 Allergy status to penicillin
CPT/HCPCS: 36415; 80053; 85027; 86780; 87389; 87811; 93005; 93010; C9803-CS; U0003; U0005

== ENCOUNTER 2022-08-13 11:42 | Inpatient (IN) | payer OTHER ==
[2022-08-13] MEDS ORDERED: NICOTINE 14 MG/24 HOURS TOPICAL PATCH TD PRN (12:56)
[2022-08-13] MEDS ORDERED: IBUPROFEN 400 MG TABLET (FP) PO PRN (12:56)
[2022-08-13] MEDS ORDERED: LOPERAMIDE HCL 2 MG CAPSULE PO PRN (12:56)
[2022-08-13] MEDS ORDERED: guaiFENesin 200 MG/10 ML 10 ML UNIT-DOSE CUPS PO PRN (12:56)
[2022-08-13] MEDS ORDERED: P-EPHED 60MG/TRIPROLIDI 2.5MG TABLET PO PRN (12:56)
[2022-08-13] MEDS ORDERED: MAGNESIUM HYDROX 2400MG/30ML ORAL SUSPENSION 30 ML CUP PO PRN (12:56)
[2022-08-13] MEDS ORDERED: MAG HYDROX/AL HYDROX/SIMETH 30 ML UNIT-DOSE CUP PO PRN (12:56)
[2022-08-13] MEDS ORDERED: BENZOCAINE/MENTHOL (CHLORASEPTIC ) LOZENGE MM PRN (12:56)
[2022-08-13] MEDS ORDERED: POLYETHYLENE GLYCOL (HEALTHYLAX) 3350 17 GM PACKET PO PRN (12:56)
[2022-08-13] MEDS: GABAPENTIN 100 MG CAPSULE PO SCH ×2 (13:35→21:12)
[2022-08-13] MEDS: hydrOXYzine PAMOATE 25 MG CAPSULE (FP) PO PRN ×2 (13:35→21:12)
[2022-08-13] MEDS: MELATONIN 5 MG TABLETS PO SCH (21:12)
[2022-08-13] MEDS: THIAMINE HCL 100 MG TABLET (FP) PO SCH (21:12)
[2022-08-13] MEDS ORDERED: traZODone HCL 50 MG TABLET (FP) PO SCH (22:00)
[2022-08-14] MEDS ORDERED: methaDONE HCL 10 MG TABLET PO SCH (06:00)
[2022-08-14] MEDS: GABAPENTIN 100 MG CAPSULE PO SCH (06:06)
[2022-08-14] MEDS: methaDONE 40 MG, methaDONE 10 MG PO SCH (06:07)
[2022-08-14] MEDS: hydrOXYzine PAMOATE 25 MG CAPSULE (FP) PO PRN ×2 (06:07→21:33)
[2022-08-14] MEDS: NICOTINE 10 MG CARTRIDGE (INHALER) IH PRN (09:00)
[2022-08-14] MEDS: PRENATAL VITAMINS W/ FOLIC ACID TABLET (FP) PO SCH (10:11)
[2022-08-14] MEDS: GABAPENTIN 300 MG CAPSULE PO SCH ×2 (14:48→21:33)
[2022-08-14] MEDS: THIAMINE HCL 100 MG TABLET (FP) PO SCH (21:33)
[2022-08-14] MEDS: traZODone HCL 50 MG TABLET (FP) PO PRN (21:33)
[2022-08-14] MEDS: MELATONIN 5 MG TABLETS PO SCH (21:33)
[2022-08-15] MEDS: GABAPENTIN 300 MG CAPSULE PO SCH ×3 (06:16→21:14)
[2022-08-15] MEDS: methaDONE 40 MG, methaDONE 10 MG PO SCH (06:16)
[2022-08-15] MEDS: hydrOXYzine PAMOATE 25 MG CAPSULE (FP) PO PRN ×2 (06:17→21:14)
[2022-08-15] MEDS: PRENATAL VITAMINS W/ FOLIC ACID TABLET (FP) PO SCH (09:37)
[2022-08-15] MEDS: METHOCARBAMOL 500 MG TABLET PO SCH ×2 (15:00→21:14)
[2022-08-15] MEDS: THIAMINE HCL 100 MG TABLET (FP) PO SCH (21:13)
[2022-08-15] MEDS: MELATONIN 5 MG TABLETS PO SCH (21:13)
[2022-08-15] MEDS: traZODone HCL 50 MG TABLET (FP) PO PRN (21:14)
[2022-08-16] MEDS: methaDONE 40 MG, methaDONE 10 MG PO SCH (06:07)
[2022-08-16] MEDS: GABAPENTIN 300 MG CAPSULE PO SCH ×3 (06:08→21:28)
[2022-08-16] MEDS: hydrOXYzine PAMOATE 25 MG CAPSULE (FP) PO PRN ×2 (06:08→21:29)
[2022-08-16] MEDS: PRENATAL VITAMINS W/ FOLIC ACID TABLET (FP) PO SCH (09:37)
[2022-08-16] MEDS: METHOCARBAMOL 500 MG TABLET PO SCH ×2 (09:37→21:28)
[2022-08-16] MEDS: MELATONIN 5 MG TABLETS PO SCH (21:27)
[2022-08-16] MEDS: traZODone HCL 50 MG TABLET (FP) PO PRN (21:28)
[2022-08-16] MEDS: THIAMINE HCL 100 MG TABLET (FP) PO SCH (21:28)
[2022-08-16] MEDS: NICOTINE 10 MG CARTRIDGE (INHALER) IH PRN (22:07)
[2022-08-17] MEDS: GABAPENTIN 300 MG CAPSULE PO SCH ×3 (06:13→21:14)
[2022-08-17] MEDS: methaDONE 40 MG, methaDONE 10 MG PO SCH (06:14)
[2022-08-17] MEDS: hydrOXYzine PAMOATE 25 MG CAPSULE (FP) PO PRN ×3 (06:15→21:14)
[2022-08-17] MEDS: METHOCARBAMOL 500 MG TABLET PO SCH ×2 (10:02→21:15)
[2022-08-17] MEDS: PRENATAL VITAMINS W/ FOLIC ACID TABLET (FP) PO SCH (10:02)
[2022-08-17] MEDS: NICOTINE 10 MG CARTRIDGE (INHALER) IH PRN (14:13)
[2022-08-17] MEDS: MELATONIN 5 MG TABLETS PO SCH (21:14)
[2022-08-17] MEDS: THIAMINE HCL 100 MG TABLET (FP) PO SCH (21:14)
[2022-08-17] MEDS: traZODone HCL 50 MG TABLET (FP) PO PRN (21:14)
[2022-08-18] MEDS: methaDONE 40 MG, methaDONE 10 MG PO SCH (06:15)
[2022-08-18] MEDS: GABAPENTIN 300 MG CAPSULE PO SCH ×3 (06:15→21:41)
[2022-08-18] MEDS: hydrOXYzine PAMOATE 25 MG CAPSULE (FP) PO PRN ×3 (06:16→21:42)
[2022-08-18] MEDS: PRENATAL VITAMINS W/ FOLIC ACID TABLET (FP) PO SCH (09:56)
[2022-08-18] MEDS: NICOTINE 10 MG CARTRIDGE (INHALER) IH PRN (09:56)
[2022-08-18] MEDS: METHOCARBAMOL 500 MG TABLET PO SCH ×2 (09:56→21:42)
[2022-08-18] MEDS: MELATONIN 5 MG TABLETS PO SCH (21:41)
[2022-08-18] MEDS: traZODone HCL 50 MG TABLET (FP) PO PRN (21:41)
[2022-08-18] MEDS: THIAMINE HCL 100 MG TABLET (FP) PO SCH (21:41)
[2022-08-19] MEDS: GABAPENTIN 300 MG CAPSULE PO SCH ×3 (06:27→21:39)
[2022-08-19] MEDS: methaDONE 40 MG, methaDONE 10 MG PO SCH (06:27)
[2022-08-19] MEDS: hydrOXYzine PAMOATE 25 MG CAPSULE (FP) PO PRN ×3 (06:27→21:39)
[2022-08-19] MEDS: PRENATAL VITAMINS W/ FOLIC ACID TABLET (FP) PO SCH (10:02)
[2022-08-19] MEDS: METHOCARBAMOL 500 MG TABLET PO SCH ×2 (10:02→21:40)
[2022-08-19] MEDS: NICOTINE 10 MG CARTRIDGE (INHALER) IH PRN (10:03)
[2022-08-19] MEDS: THIAMINE HCL 100 MG TABLET (FP) PO SCH (21:39)
[2022-08-19] MEDS: traZODone HCL 50 MG TABLET (FP) PO PRN (21:39)
[2022-08-19] MEDS: MELATONIN 5 MG TABLETS PO SCH (21:39)
[2022-08-20] MEDS: methaDONE 40 MG, methaDONE 10 MG PO SCH (06:02)
[2022-08-20] MEDS: hydrOXYzine PAMOATE 25 MG CAPSULE (FP) PO PRN ×2 (06:02→21:38)
[2022-08-20] MEDS: GABAPENTIN 300 MG CAPSULE PO SCH ×3 (06:02→21:38)
[2022-08-20] MEDS: METHOCARBAMOL 500 MG TABLET PO SCH ×2 (10:00→21:38)
[2022-08-20] MEDS: PRENATAL VITAMINS W/ FOLIC ACID TABLET (FP) PO SCH (10:00)
[2022-08-20] MEDS: ACETAMINOPHEN 325 MG TABLET (FP) PO PRN (13:55)
[2022-08-20] MEDS: MELATONIN 5 MG TABLETS PO SCH (21:38)
[2022-08-20] MEDS: THIAMINE HCL 100 MG TABLET (FP) PO SCH (21:38)
[2022-08-21] MEDS: methaDONE 40 MG, methaDONE 10 MG PO SCH (06:11)
[2022-08-21] MEDS: hydrOXYzine PAMOATE 25 MG CAPSULE (FP) PO PRN ×3 (06:12→21:49)
[2022-08-21] MEDS: GABAPENTIN 300 MG CAPSULE PO SCH ×3 (06:12→21:49)
[2022-08-21] MEDS: METHOCARBAMOL 500 MG TABLET PO SCH ×2 (10:11→21:49)
[2022-08-21] MEDS: PRENATAL VITAMINS W/ FOLIC ACID TABLET (FP) PO SCH (10:11)
[2022-08-21] MEDS: NICOTINE 10 MG CARTRIDGE (INHALER) IH PRN (10:12)
[2022-08-21] MEDS: MELATONIN 5 MG TABLETS PO SCH (21:49)
[2022-08-21] MEDS: THIAMINE HCL 100 MG TABLET (FP) PO SCH (21:49)
[2022-08-22] MEDS: GABAPENTIN 300 MG CAPSULE PO SCH ×3 (06:13→21:09)
[2022-08-22] MEDS: hydrOXYzine PAMOATE 25 MG CAPSULE (FP) PO PRN ×3 (06:13→21:09)
[2022-08-22] MEDS: methaDONE 40 MG, methaDONE 10 MG PO SCH (06:13)
[2022-08-22] MEDS: METHOCARBAMOL 500 MG TABLET PO SCH ×2 (10:17→21:09)
[2022-08-22] MEDS: PRENATAL VITAMINS W/ FOLIC ACID TABLET (FP) PO SCH (10:17)
[2022-08-22] MEDS: MELATONIN 5 MG TABLETS PO SCH (21:09)
[2022-08-22] MEDS: THIAMINE HCL 100 MG TABLET (FP) PO SCH (21:09)
[2022-08-22] MEDS: traZODone HCL 50 MG TABLET (FP) PO PRN (21:11)
[2022-08-23] MEDS: GABAPENTIN 300 MG CAPSULE PO SCH ×3 (06:03→21:10)
[2022-08-23] MEDS: methaDONE 40 MG, methaDONE 10 MG PO SCH (06:03)
[2022-08-23] MEDS: hydrOXYzine PAMOATE 25 MG CAPSULE (FP) PO PRN ×3 (06:03→21:10)
[2022-08-23] MEDS: PRENATAL VITAMINS W/ FOLIC ACID TABLET (FP) PO SCH (09:53)
[2022-08-23] MEDS: METHOCARBAMOL 500 MG TABLET PO SCH ×2 (09:53→21:10)
[2022-08-23] MEDS: MELATONIN 5 MG TABLETS PO SCH (21:10)
[2022-08-23] MEDS: traZODone HCL 50 MG TABLET (FP) PO PRN (21:10)
[2022-08-23] MEDS: THIAMINE HCL 100 MG TABLET (FP) PO SCH (21:10)
[2022-08-24] MEDS: methaDONE 40 MG, methaDONE 10 MG PO SCH (06:19)
[2022-08-24] MEDS: GABAPENTIN 300 MG CAPSULE PO SCH ×3 (06:19→21:35)
[2022-08-24] MEDS: hydrOXYzine PAMOATE 25 MG CAPSULE (FP) PO PRN ×3 (06:20→21:36)
[2022-08-24] MEDS: PRENATAL VITAMINS W/ FOLIC ACID TABLET (FP) PO SCH (09:42)
[2022-08-24] MEDS: METHOCARBAMOL 500 MG TABLET PO SCH ×2 (09:42→21:36)
[2022-08-24] MEDS: THIAMINE HCL 100 MG TABLET (FP) PO SCH (21:36)
[2022-08-24] MEDS: MELATONIN 5 MG TABLETS PO SCH (21:36)
[2022-08-24] MEDS: traZODone HCL 50 MG TABLET (FP) PO PRN (21:37)
[2022-08-25] MEDS: hydrOXYzine PAMOATE 25 MG CAPSULE (FP) PO PRN ×3 (06:04→21:13)
[2022-08-25] MEDS: methaDONE 40 MG, methaDONE 10 MG PO SCH (06:04)
[2022-08-25] MEDS: GABAPENTIN 300 MG CAPSULE PO SCH ×3 (06:04→21:12)
[2022-08-25] MEDS: NICOTINE 10 MG CARTRIDGE (INHALER) IH PRN (06:07)
[2022-08-25] MEDS: METHOCARBAMOL 500 MG TABLET PO SCH ×2 (10:00→21:12)
[2022-08-25] MEDS: PRENATAL VITAMINS W/ FOLIC ACID TABLET (FP) PO SCH (10:00)
[2022-08-25] MEDS: THIAMINE HCL 100 MG TABLET (FP) PO SCH (21:11)
[2022-08-25] MEDS: MELATONIN 5 MG TABLETS PO SCH (21:11)
[2022-08-25] MEDS: traZODone HCL 50 MG TABLET (FP) PO PRN (21:13)
[2022-08-26] MEDS: methaDONE 40 MG, methaDONE 10 MG PO SCH (06:01)
[2022-08-26] MEDS: GABAPENTIN 300 MG CAPSULE PO SCH ×3 (06:01→21:07)
[2022-08-26] MEDS: hydrOXYzine PAMOATE 25 MG CAPSULE (FP) PO PRN ×3 (06:01→21:07)
[2022-08-26] MEDS: PRENATAL VITAMINS W/ FOLIC ACID TABLET (FP) PO SCH (09:45)
[2022-08-26] MEDS: METHOCARBAMOL 500 MG TABLET PO SCH ×2 (09:45→21:07)
[2022-08-26] MEDS: THIAMINE HCL 100 MG TABLET (FP) PO SCH (21:07)
[2022-08-26] MEDS: traZODone HCL 50 MG TABLET (FP) PO PRN (21:07)
[2022-08-26] MEDS: MELATONIN 5 MG TABLETS PO SCH (21:08)
[2022-08-27] MEDS: GABAPENTIN 300 MG CAPSULE PO SCH ×3 (06:08→21:11)
[2022-08-27] MEDS: methaDONE 40 MG, methaDONE 10 MG PO SCH (06:08)
[2022-08-27] MEDS: hydrOXYzine PAMOATE 25 MG CAPSULE (FP) PO PRN ×3 (06:08→21:11)
[2022-08-27] MEDS: NICOTINE 10 MG CARTRIDGE (INHALER) IH PRN (06:10)
[2022-08-27] MEDS ORDERED: AMMONIUM LACTATE 12% LOTION 225 GM BOTTLE TP PRN (09:04)
[2022-08-27] MEDS: PRENATAL VITAMINS W/ FOLIC ACID TABLET (FP) PO SCH (09:56)
[2022-08-27] MEDS: METHOCARBAMOL 500 MG TABLET PO SCH ×2 (09:56→21:12)
[2022-08-27] MEDS: THIAMINE HCL 100 MG TABLET (FP) PO SCH (21:11)
[2022-08-27] MEDS: traZODone HCL 50 MG TABLET (FP) PO PRN (21:11)
[2022-08-27] MEDS: MELATONIN 5 MG TABLETS PO SCH (21:12)
[2022-08-28] MEDS: methaDONE 40 MG, methaDONE 10 MG PO SCH (06:20)
[2022-08-28] MEDS: hydrOXYzine PAMOATE 25 MG CAPSULE (FP) PO PRN ×3 (06:20→21:10)
[2022-08-28] MEDS: GABAPENTIN 300 MG CAPSULE PO SCH ×3 (06:20→21:10)
[2022-08-28] MEDS: PRENATAL VITAMINS W/ FOLIC ACID TABLET (FP) PO SCH (09:44)
[2022-08-28] MEDS: METHOCARBAMOL 500 MG TABLET PO SCH ×2 (09:44→21:10)
[2022-08-28] MEDS: traZODone HCL 50 MG TABLET (FP) PO PRN (21:10)
[2022-08-28] MEDS: THIAMINE HCL 100 MG TABLET (FP) PO SCH (21:10)
[2022-08-28] MEDS: MELATONIN 5 MG TABLETS PO SCH (21:10)
[2022-08-29] MEDS: GABAPENTIN 300 MG CAPSULE PO SCH ×3 (06:08→21:23)
[2022-08-29] MEDS: methaDONE 40 MG, methaDONE 10 MG PO SCH ×2 (06:08→06:25)
[2022-08-29] MEDS: hydrOXYzine PAMOATE 25 MG CAPSULE (FP) PO PRN ×2 (06:08→21:23)
[2022-08-29] MEDS: METHOCARBAMOL 500 MG TABLET PO SCH ×2 (09:54→21:23)
[2022-08-29] MEDS: PRENATAL VITAMINS W/ FOLIC ACID TABLET (FP) PO SCH (09:54)
[2022-08-29] MEDS: traZODone HCL 50 MG TABLET (FP) PO PRN (21:23)
[2022-08-29] MEDS: MELATONIN 5 MG TABLETS PO SCH (21:23)
[2022-08-29] MEDS: THIAMINE HCL 100 MG TABLET (FP) PO SCH (21:23)
[2022-08-30] MEDS: GABAPENTIN 300 MG CAPSULE PO SCH ×3 (06:12→21:21)
[2022-08-30] MEDS: methaDONE 40 MG, methaDONE 10 MG PO SCH (06:12)
[2022-08-30] MEDS: hydrOXYzine PAMOATE 25 MG CAPSULE (FP) PO PRN ×3 (06:12→21:21)
[2022-08-30] MEDS: NICOTINE 10 MG CARTRIDGE (INHALER) IH PRN (08:58)
[2022-08-30] MEDS: METHOCARBAMOL 500 MG TABLET PO SCH ×2 (09:02→21:21)
[2022-08-30] MEDS: PRENATAL VITAMINS W/ FOLIC ACID TABLET (FP) PO SCH (09:02)
[2022-08-30] MEDS: traZODone HCL 50 MG TABLET (FP) PO PRN (21:21)
[2022-08-30] MEDS: THIAMINE HCL 100 MG TABLET (FP) PO SCH (21:21)
[2022-08-30] MEDS: MELATONIN 5 MG TABLETS PO SCH (21:21)
[2022-08-30] MEDS: ACETAMINOPHEN 325 MG TABLET (FP) PO PRN (21:22)
[2022-08-31] MEDS: methaDONE 40 MG, methaDONE 10 MG PO SCH (06:18)
[2022-08-31] MEDS: GABAPENTIN 300 MG CAPSULE PO SCH ×2 (06:18→13:57)
[2022-08-31] MEDS: hydrOXYzine PAMOATE 25 MG CAPSULE (FP) PO PRN ×3 (06:18→21:09)
[2022-08-31] MEDS: PRENATAL VITAMINS W/ FOLIC ACID TABLET (FP) PO SCH (09:45)
[2022-08-31] MEDS: METHOCARBAMOL 500 MG TABLET PO SCH ×2 (09:45→21:09)
[2022-08-31] MEDS: NICOTINE 10 MG CARTRIDGE (INHALER) IH PRN (12:31)
[2022-08-31] MEDS: ACETAMINOPHEN 325 MG TABLET (FP) PO PRN (17:50)
[2022-08-31] MEDS: MELATONIN 5 MG TABLETS PO SCH (21:08)
[2022-08-31] MEDS: THIAMINE HCL 100 MG TABLET (FP) PO SCH (21:08)
[2022-08-31] MEDS: traZODone HCL 100 MG TABLET (FP) PO PRN (21:10)
[2022-08-31] MEDS: GABAPENTIN 400 MG CAPSULE PO SCH (21:10)
[2022-09-01] MEDS: methaDONE 40 MG, methaDONE 10 MG PO SCH (06:10)
[2022-09-01] MEDS: GABAPENTIN 400 MG CAPSULE PO SCH ×3 (06:11→21:38)
[2022-09-01] MEDS: hydrOXYzine PAMOATE 25 MG CAPSULE (FP) PO PRN ×3 (06:11→21:38)
[2022-09-01] MEDS: PRENATAL VITAMINS W/ FOLIC ACID TABLET (FP) PO SCH (09:30)
[2022-09-01] MEDS: METHOCARBAMOL 500 MG TABLET PO SCH ×2 (09:30→21:38)
[2022-09-01] MEDS ORDERED: COLLOIDAL OATMEAL 1 BAR EACH TP PRN (12:38)
[2022-09-01] MEDS: THIAMINE HCL 100 MG TABLET (FP) PO SCH (21:38)
[2022-09-01] MEDS: MELATONIN 5 MG TABLETS PO SCH (21:38)
[2022-09-01] MEDS: traZODone HCL 100 MG TABLET (FP) PO PRN (21:40)
[2022-09-02] MEDS: GABAPENTIN 400 MG CAPSULE PO SCH ×3 (06:25→21:29)
[2022-09-02] MEDS: hydrOXYzine PAMOATE 25 MG CAPSULE (FP) PO PRN ×3 (06:25→21:29)
[2022-09-02] MEDS: METHOCARBAMOL 500 MG TABLET PO SCH ×2 (09:32→21:29)
[2022-09-02] MEDS: PRENATAL VITAMINS W/ FOLIC ACID TABLET (FP) PO SCH (09:33)
[2022-09-02] MEDS: traZODone HCL 100 MG TABLET (FP) PO PRN (21:29)
[2022-09-02] MEDS: SELENIUM SULFIDE 2.25% 180 ML SHAMPOO TP SCH (21:29)
[2022-09-02] MEDS: THIAMINE HCL 100 MG TABLET (FP) PO SCH (21:29)
[2022-09-02] MEDS: MELATONIN 5 MG TABLETS PO SCH (21:30)
[2022-09-03] MEDS ORDERED: methaDONE HCL 10 MG TABLET PO SCH (06:00)
[2022-09-03] MEDS: GABAPENTIN 400 MG CAPSULE PO SCH ×3 (06:19→21:07)
[2022-09-03] MEDS: hydrOXYzine PAMOATE 25 MG CAPSULE (FP) PO PRN ×2 (06:19→21:07)
[2022-09-03] MEDS: methaDONE 40 MG, methaDONE 10 MG PO SCH (06:19)
[2022-09-03] MEDS: NICOTINE 10 MG CARTRIDGE (INHALER) IH PRN (08:29)
[2022-09-03] MEDS: PRENATAL VITAMINS W/ FOLIC ACID TABLET (FP) PO SCH (09:49)
[2022-09-03] MEDS: METHOCARBAMOL 500 MG TABLET PO SCH ×2 (09:49→21:07)
[2022-09-03] MEDS: SELENIUM SULFIDE 2.25% 180 ML SHAMPOO TP SCH (09:50)
[2022-09-03] MEDS: THIAMINE HCL 100 MG TABLET (FP) PO SCH (21:06)
[2022-09-03] MEDS: MELATONIN 5 MG TABLETS PO SCH (21:06)
[2022-09-03] MEDS: traZODone HCL 100 MG TABLET (FP) PO PRN (21:07)
[2022-09-04] MEDS: methaDONE 40 MG, methaDONE 10 MG PO SCH (06:13)
[2022-09-04] MEDS: hydrOXYzine PAMOATE 25 MG CAPSULE (FP) PO PRN ×2 (06:14→21:23)
[2022-09-04] MEDS: GABAPENTIN 400 MG CAPSULE PO SCH ×3 (06:14→21:23)
[2022-09-04] MEDS: PRENATAL VITAMINS W/ FOLIC ACID TABLET (FP) PO SCH (09:35)
[2022-09-04] MEDS: METHOCARBAMOL 500 MG TABLET PO SCH ×2 (09:35→21:23)
[2022-09-04] MEDS: SELENIUM SULFIDE 2.5% LOTION 4 OZ. TP SCH (09:36)
[2022-09-04] MEDS: ACETAMINOPHEN 325 MG TABLET (FP) PO PRN (14:32)
[2022-09-04] MEDS: MELATONIN 5 MG TABLETS PO SCH (21:23)
[2022-09-04] MEDS: traZODone HCL 100 MG TABLET (FP) PO PRN (21:23)
[2022-09-04] MEDS: THIAMINE HCL 100 MG TABLET (FP) PO SCH (21:23)
[2022-09-05] MEDS: methaDONE 40 MG, methaDONE 10 MG PO SCH (06:11)
[2022-09-05] MEDS: hydrOXYzine PAMOATE 25 MG CAPSULE (FP) PO PRN ×3 (06:11→21:02)
[2022-09-05] MEDS: GABAPENTIN 400 MG CAPSULE PO SCH ×3 (06:11→21:02)
[2022-09-05] MEDS: NICOTINE 10 MG CARTRIDGE (INHALER) IH PRN (06:12)
[2022-09-05] MEDS: PRENATAL VITAMINS W/ FOLIC ACID TABLET (FP) PO SCH (09:43)
[2022-09-05] MEDS: METHOCARBAMOL 500 MG TABLET PO SCH ×2 (09:43→21:02)
[2022-09-05] MEDS: SELENIUM SULFIDE 2.5% LOTION 4 OZ. TP SCH (09:43)
[2022-09-05] MEDS: THIAMINE HCL 100 MG TABLET (FP) PO SCH (21:01)
[2022-09-05] MEDS: MELATONIN 5 MG TABLETS PO SCH (21:01)
[2022-09-05] MEDS: traZODone HCL 100 MG TABLET (FP) PO PRN (21:02)
[2022-09-06] MEDS: hydrOXYzine PAMOATE 25 MG CAPSULE (FP) PO PRN ×3 (06:08→21:23)
[2022-09-06] MEDS: GABAPENTIN 400 MG CAPSULE PO SCH ×3 (06:08→21:23)
[2022-09-06] MEDS: methaDONE 40 MG, methaDONE 10 MG PO SCH (06:08)
[2022-09-06] MEDS: NICOTINE 10 MG CARTRIDGE (INHALER) IH PRN (06:09)
[2022-09-06] MEDS: METHOCARBAMOL 500 MG TABLET PO SCH ×2 (09:30→21:23)
[2022-09-06] MEDS: PRENATAL VITAMINS W/ FOLIC ACID TABLET (FP) PO SCH (09:30)
[2022-09-06] MEDS: SELENIUM SULFIDE 2.5% LOTION 4 OZ. TP SCH (09:31)
[2022-09-06] MEDS: THIAMINE HCL 100 MG TABLET (FP) PO SCH (21:23)
[2022-09-06] MEDS: MELATONIN 5 MG TABLETS PO SCH (21:23)
[2022-09-06] MEDS: traZODone HCL 100 MG TABLET (FP) PO PRN (21:23)
[2022-09-07] MEDS: GABAPENTIN 400 MG CAPSULE PO SCH ×3 (06:13→21:26)
[2022-09-07] MEDS: methaDONE 40 MG, methaDONE 10 MG PO SCH (06:14)
[2022-09-07] MEDS: hydrOXYzine PAMOATE 25 MG CAPSULE (FP) PO PRN ×3 (06:16→21:26)
[2022-09-07] MEDS: NICOTINE 10 MG CARTRIDGE (INHALER) IH PRN (08:39)
[2022-09-07] MEDS: SELENIUM SULFIDE 2.5% LOTION 4 OZ. TP SCH (10:04)
[2022-09-07] MEDS: PRENATAL VITAMINS W/ FOLIC ACID TABLET (FP) PO SCH (10:04)
[2022-09-07] MEDS: METHOCARBAMOL 500 MG TABLET PO SCH ×2 (10:04→21:26)
[2022-09-07] MEDS: THIAMINE HCL 100 MG TABLET (FP) PO SCH (21:26)
[2022-09-07] MEDS: traZODone HCL 100 MG TABLET (FP) PO PRN (21:27)
[2022-09-07] MEDS: MELATONIN 5 MG TABLETS PO SCH (21:27)
[2022-09-08] MEDS: hydrOXYzine PAMOATE 25 MG CAPSULE (FP) PO PRN ×3 (06:00→21:11)
[2022-09-08] MEDS: GABAPENTIN 400 MG CAPSULE PO SCH ×3 (06:00→21:11)
[2022-09-08] MEDS: methaDONE 40 MG, methaDONE 10 MG PO SCH (06:00)
[2022-09-08] MEDS: NICOTINE 10 MG CARTRIDGE (INHALER) IH PRN (06:01)
[2022-09-08] MEDS: PRENATAL VITAMINS W/ FOLIC ACID TABLET (FP) PO SCH (09:29)
[2022-09-08] MEDS: METHOCARBAMOL 500 MG TABLET PO SCH ×2 (09:29→21:11)
[2022-09-08] MEDS: SELENIUM SULFIDE 2.5% LOTION 4 OZ. TP SCH (09:29)
[2022-09-08] MEDS: traZODone HCL 100 MG TABLET (FP) PO PRN (21:11)
[2022-09-08] MEDS: THIAMINE HCL 100 MG TABLET (FP) PO SCH (21:11)
[2022-09-08] MEDS: MELATONIN 5 MG TABLETS PO SCH (21:11)
[2022-09-09] MEDS: GABAPENTIN 400 MG CAPSULE PO SCH ×3 (06:00→21:21)
[2022-09-09] MEDS: methaDONE 40 MG, methaDONE 10 MG PO SCH (06:00)
[2022-09-09] MEDS: hydrOXYzine PAMOATE 25 MG CAPSULE (FP) PO PRN ×3 (06:00→21:21)
[2022-09-09] MEDS: NICOTINE 10 MG CARTRIDGE (INHALER) IH PRN (06:01)
[2022-09-09 06:49] VITALS: TEMP 97.8
[2022-09-09] MEDS: PRENATAL VITAMINS W/ FOLIC ACID TABLET (FP) PO SCH (09:27)
[2022-09-09] MEDS: METHOCARBAMOL 500 MG TABLET PO SCH ×2 (09:27→21:21)
[2022-09-09] MEDS: SELENIUM SULFIDE 2.5% LOTION 4 OZ. TP SCH (10:13)
[2022-09-09] MEDS: traZODone HCL 100 MG TABLET (FP) PO PRN (21:21)
[2022-09-09] MEDS: THIAMINE HCL 100 MG TABLET (FP) PO SCH (21:21)
[2022-09-09] MEDS: MELATONIN 5 MG TABLETS PO SCH (21:21)
[2022-09-10] MEDS: methaDONE 40 MG, methaDONE 10 MG PO SCH (06:14)
[2022-09-10] MEDS: GABAPENTIN 400 MG CAPSULE PO SCH (06:14)
[2022-09-10] MEDS: hydrOXYzine PAMOATE 25 MG CAPSULE (FP) PO PRN (06:14)
[2022-09-10] MEDS: NICOTINE 10 MG CARTRIDGE (INHALER) IH PRN (06:15)
[2022-09-10 06:45] VITALS: BP 117/80; PULSE 62; RESP 16
== END 2022-09-10 09:23 | disposition home or self-care (01) | DRG 772 ==
LOC: YASAS 11:42 → Y3E 11:43
PROVIDERS: ADMIT Allergy & Immunology; ATTEND Psychiatry & Neurology Pain Medicine
PROC: HZ42ZZZ Group Counseling for Substance Abuse Treatment, Cognitive-Behavioral (ICD-10-PCS; principal; 2022-08-13)
DX: F10.20 Alcohol dependence, uncomplicated (principal); F14.20 Cocaine dependence, uncomplicated; F11.20 Opioid dependence, uncomplicated; F12.20 Cannabis dependence, uncomplicated; F17.210 Nicotine dependence, cigarettes, uncomplicated; F19.282 Other psychoactive substance dependence with psychoactive substance-induced sleep disorder; F19.280 Other psychoactive substance dependence with psychoactive substance-induced anxiety disorder; F19.24 Other psychoactive substance dependence with psychoactive substance-induced mood disorder; E78.5 Hyperlipidemia, unspecified; L85.3 Xerosis cutis; L21.0 Seborrhea capitis; M54.50 Low back pain, unspecified; G89.29 Other chronic pain; Z88.8 Allergy status to other drugs, medicaments and biological substances
CPT/HCPCS: 36415; 86803; 87522

== ENCOUNTER 2023-01-06 09:35 | Inpatient (IN) | payer OTHER ==
[2023-01-06 10:21] VITALS: BMI 31.1
[2023-01-06] MEDS ORDERED: DICYCLOMINE HCL 10 MG CAPSULE PO PRN (12:51)
[2023-01-06] MEDS ORDERED: NALOXONE HCL (KLOXXADO) 8 MG SPRAY NS PRN (12:51)
[2023-01-06] MEDS ORDERED: POLYETHYLENE GLYCOL (HEALTHYLAX) 3350 17 GM PACKET PO PRN (12:51)
[2023-01-06] MEDS ORDERED: guaiFENesin 600 MG TABLET.ER (FP) PO PRN (12:51)
[2023-01-06] MEDS ORDERED: LOPERAMIDE HCL 2 MG CAPSULE PO PRN (12:51)
[2023-01-06] MEDS ORDERED: MAG HYDROX/AL HYDROX/SIMETH 30 ML UNIT-DOSE CUP PO PRN (12:51)
[2023-01-06] MEDS ORDERED: ONDANSETRON *ODT* 4 MG TABLET SL PRN (12:51)
[2023-01-06] MEDS ORDERED: MAGNESIUM HYDROX 2400MG/30ML ORAL SUSPENSION 30 ML CUP PO PRN (12:51)
[2023-01-06] MEDS ORDERED: IBUPROFEN 600 MG TABLET (FP) PO PRN (12:51)
[2023-01-06] MEDS ORDERED: BISMUTH SUBSALICYLATE 524 MG/30 ML PO PRN (12:51)
[2023-01-06] MEDS ORDERED: IBUPROFEN 400 MG TABLET (FP) PO PRN (12:51)
[2023-01-06] MEDS ORDERED: BENZONATATE 200 MG CAPSULE PO PRN (12:51)
[2023-01-06] MEDS ORDERED: BENZOCAINE/MENTHOL (CHLORASEPTIC ) LOZENGE MM PRN (12:51)
[2023-01-06] MEDS ORDERED: NALOXONE HCL 0.4 MG/ML VIAL IM PRN (12:51)
[2023-01-06] MEDS ORDERED: ACETAMINOPHEN 325 MG TABLET (FP) PO PRN (12:51)
[2023-01-06] MEDS: BUPRENORPHINE/NALOXONE 8 MG/2 MG FILM PACKET SL SCH (14:45)
[2023-01-06] MEDS: METHOCARBAMOL 500 MG TABLET PO PRN ×2 (14:46→22:07)
[2023-01-06] MEDS: chlordiazePOXIDE HCL 25 MG CAPSULE PO PRN (14:46)
[2023-01-06] MEDS: chlordiazePOXIDE HCL 25 MG CAPSULE PO SCH ×2 (17:12→22:06)
[2023-01-06] MEDS ORDERED: MELATONIN 5 MG TABLETS PO SCH (22:00)
[2023-01-06] MEDS: MIRTAZAPINE 15 MG TABLET (FP) PO SCH (22:05)
[2023-01-06] MEDS: GABAPENTIN 100 MG CAPSULE PO SCH (22:05)
[2023-01-06] MEDS: THIAMINE HCL 100 MG TABLET (FP) PO SCH (22:05)
[2023-01-06] MEDS: FLUOCINONIDE 0.05% TOP OINT (60 GM TUBE) TP SCH (22:06)
[2023-01-07] MEDS: chlordiazePOXIDE HCL 25 MG CAPSULE PO SCH ×4 (05:56→22:07)
[2023-01-07] MEDS: BUPRENORPHINE/NALOXONE 8 MG/2 MG FILM PACKET SL SCH ×2 (05:56→14:07)
[2023-01-07] MEDS: GABAPENTIN 100 MG CAPSULE PO SCH ×3 (05:56→22:06)
[2023-01-07] MEDS: FLUOCINONIDE 0.05% TOP OINT (60 GM TUBE) TP SCH ×2 (10:24→22:52)
[2023-01-07] MEDS: PRENATAL VITAMINS W/ FOLIC ACID TABLET (FP) PO SCH (10:26)
[2023-01-07] MEDS: METHOCARBAMOL 500 MG TABLET PO PRN ×2 (10:27→22:05)
[2023-01-07 10:51] LABS: HEMOGLOBIN 13.6 GM/dL (11.7-16.9); MCH 27.7 pg (25.7-33.7); MCHC 32.4 g/dl (32.0-35.9); MEAN CELL VOLUME 85.6 fl (80-96); MEAN PLT VOLUME 8.4 fl (7.5-11.1); PLATELET COUNT 279 10^3/uL (134-434); RDW 16.5 % (11.9-15.9); WHITE BLOOD COUNT 6.9 K/mm3 (4.0-10.0)
[2023-01-07 10:56] LABS: POTASSIUM 4.1 mmol/L (3.5-5.1)
[2023-01-07 11:17] LABS: CALCIUM 9.1 mg/dL (8.5-10.1)
[2023-01-07 11:18] LABS: ALBUMIN 3.3 g/dl (3.4-5.0); BLOOD UREA NITROGEN 17.4 mg/dL (7-18)
[2023-01-07 11:21] LABS: CREATININE 0.8 mg/dL (0.55-1.3)
[2023-01-07 11:22] LABS: TOT PROT 7.1 g/dl (6.4-8.2)
[2023-01-07 11:24] LABS: BILIRUBIN,TOTAL 0.2 mg/dL (0.2-1)
[2023-01-07] MEDS: chlordiazePOXIDE HCL 25 MG CAPSULE PO PRN ×2 (14:25→20:35)
[2023-01-07] MEDS: hydrOXYzine PAMOATE 25 MG CAPSULE (FP) PO PRN ×2 (14:27→22:05)
[2023-01-07] MEDS: MIRTAZAPINE 15 MG TABLET (FP) PO SCH (22:05)
[2023-01-07] MEDS: THIAMINE HCL 100 MG TABLET (FP) PO SCH (22:06)
[2023-01-08] MEDS: GABAPENTIN 100 MG CAPSULE PO SCH ×4 (05:12→22:04)
[2023-01-08] MEDS: chlordiazePOXIDE HCL 25 MG CAPSULE PO SCH ×4 (05:12→22:04)
[2023-01-08] MEDS: BUPRENORPHINE/NALOXONE 8 MG/2 MG FILM PACKET SL SCH ×2 (05:14→14:55)
[2023-01-08] MEDS: METHOCARBAMOL 500 MG TABLET PO PRN ×2 (05:14→22:05)
[2023-01-08] MEDS: hydrOXYzine PAMOATE 25 MG CAPSULE (FP) PO PRN ×2 (05:14→17:43)
[2023-01-08] MEDS: PRENATAL VITAMINS W/ FOLIC ACID TABLET (FP) PO SCH (10:15)
[2023-01-08] MEDS: FLUOCINONIDE 0.05% TOP OINT (60 GM TUBE) TP SCH ×2 (10:16→22:04)
[2023-01-08] MEDS: chlordiazePOXIDE HCL 25 MG CAPSULE PO PRN ×2 (12:37→17:41)
[2023-01-08] MEDS: THIAMINE HCL 100 MG TABLET (FP) PO SCH (22:04)
[2023-01-08] MEDS: MIRTAZAPINE 15 MG TABLET (FP) PO SCH (22:04)
[2023-01-09] MEDS ORDERED: chlordiazePOXIDE HCL 10 MG CAPSULE PO PRN
[2023-01-09] MEDS: BUPRENORPHINE/NALOXONE 8 MG/2 MG FILM PACKET SL SCH ×2 (05:30→15:32)
[2023-01-09] MEDS: GABAPENTIN 100 MG CAPSULE PO SCH ×3 (05:30→22:23)
[2023-01-09] MEDS: METHOCARBAMOL 500 MG TABLET PO PRN ×2 (05:31→22:24)
[2023-01-09] MEDS: hydrOXYzine PAMOATE 25 MG CAPSULE (FP) PO PRN ×2 (05:31→17:49)
[2023-01-09] MEDS: chlordiazePOXIDE HCL 10 MG CAPSULE PO SCH ×4 (05:31→22:23)
[2023-01-09] MEDS: PRENATAL VITAMINS W/ FOLIC ACID TABLET (FP) PO SCH (10:09)
[2023-01-09] MEDS: FLUOCINONIDE 0.05% TOP OINT (60 GM TUBE) TP SCH ×2 (10:10→22:23)
[2023-01-09] MEDS: MIRTAZAPINE 15 MG TABLET (FP) PO SCH (22:23)
[2023-01-09] MEDS: THIAMINE HCL 100 MG TABLET (FP) PO SCH (22:23)
[2023-01-10] MEDS ORDERED: chlordiazePOXIDE HCL 10 MG CAPSULE PO SCH (05:00)
[2023-01-10] MEDS: BUPRENORPHINE/NALOXONE 8 MG/2 MG FILM PACKET SL SCH (05:35)
[2023-01-10] MEDS: GABAPENTIN 100 MG CAPSULE PO SCH (05:35)
[2023-01-10] MEDS: hydrOXYzine PAMOATE 25 MG CAPSULE (FP) PO PRN (05:36)
[2023-01-10 08:47] VITALS: BP 138/93; PULSE 98; RESP 18; TEMP 98.4
[2023-01-10] MEDS: PRENATAL VITAMINS W/ FOLIC ACID TABLET (FP) PO SCH (09:20)
[2023-01-10] MEDS: FLUOCINONIDE 0.05% TOP OINT (60 GM TUBE) TP SCH (09:20)
[2023-01-11] MEDS ORDERED: chlordiazePOXIDE HCL 10 MG CAPSULE PO ONE (05:00)
== END 2023-01-10 09:17 | disposition home or self-care (01) | DRG 773 ==
LOC: YASAS 09:35 → Y3N 12:19
PROVIDERS: ADMIT Allergy & Immunology; ATTEND Surgery
PROC: HZ2ZZZZ Detoxification Services for Substance Abuse Treatment (ICD-10-PCS; principal; 2023-01-06)
DX: F10.230 Alcohol dependence with withdrawal, uncomplicated (principal); F13.230 Sedative, hypnotic or anxiolytic dependence with withdrawal, uncomplicated; F11.20 Opioid dependence, uncomplicated; F14.20 Cocaine dependence, uncomplicated; F19.982 Other psychoactive substance use, unspecified with psychoactive substance-induced sleep disorder; F41.9 Anxiety disorder, unspecified; F32.A Depression, unspecified; B35.6 Tinea cruris; Z88.0 Allergy status to penicillin
CPT/HCPCS: 36415; 80053; 85027; 86780; 87635; 87811

== ENCOUNTER 2023-03-19 11:37 | Inpatient (IN) | payer OTHER ==
[2023-03-19 12:47] VITALS: BMI 28.8
[2023-03-19] MEDS ORDERED: MAGNESIUM HYDROX 2400MG/30ML ORAL SUSPENSION 30 ML CUP PO PRN (14:58)
[2023-03-19] MEDS ORDERED: NALOXONE HCL 0.4 MG/ML VIAL IM PRN (14:58)
[2023-03-19] MEDS ORDERED: MAG HYDROX/AL HYDROX/SIMETH 30 ML UNIT-DOSE CUP PO PRN (14:58)
[2023-03-19] MEDS ORDERED: ACETAMINOPHEN 325 MG TABLET (FP) PO PRN (14:58)
[2023-03-19] MEDS ORDERED: BISMUTH SUBSALICYLATE 524 MG/30 ML PO PRN (14:58)
[2023-03-19] MEDS ORDERED: IBUPROFEN 600 MG TABLET (FP) PO PRN (14:58)
[2023-03-19] MEDS ORDERED: guaiFENesin 600 MG TABLET.ER (FP) PO PRN (14:58)
[2023-03-19] MEDS ORDERED: BENZONATATE 200 MG CAPSULE PO PRN (14:58)
[2023-03-19] MEDS ORDERED: DICYCLOMINE HCL 10 MG CAPSULE PO PRN (14:58)
[2023-03-19] MEDS ORDERED: NALOXONE HCL (KLOXXADO) 8 MG SPRAY NS PRN (14:58)
[2023-03-19] MEDS ORDERED: ONDANSETRON *ODT* 4 MG TABLET SL PRN (14:58)
[2023-03-19] MEDS ORDERED: LOPERAMIDE HCL 2 MG CAPSULE PO PRN (14:58)
[2023-03-19] MEDS ORDERED: IBUPROFEN 400 MG TABLET (FP) PO PRN (14:58)
[2023-03-19] MEDS ORDERED: POLYETHYLENE GLYCOL (HEALTHYLAX) 3350 17 GM PACKET PO PRN (14:58)
[2023-03-19] MEDS ORDERED: BENZOCAINE/MENTHOL (CHLORASEPTIC ) LOZENGE MM PRN (14:58)
[2023-03-19] MEDS: NICOTINE 14 MG/24 HOURS TOPICAL PATCH TD SCH (15:59)
[2023-03-19] MEDS: PRENATAL VITAMINS W/ FOLIC ACID TABLET (FP) PO SCH (16:00)
[2023-03-19] MEDS: chlordiazePOXIDE HCL 25 MG CAPSULE PO SCH ×2 (17:12→22:03)
[2023-03-19] MEDS: hydrOXYzine PAMOATE 25 MG CAPSULE (FP) PO PRN (22:03)
[2023-03-19] MEDS: THIAMINE HCL 100 MG TABLET (FP) PO SCH (22:03)
[2023-03-19] MEDS: MELATONIN 5 MG TABLETS PO SCH (22:03)
[2023-03-19] MEDS: METHOCARBAMOL 500 MG TABLET PO PRN (22:03)
[2023-03-19] MEDS: BUPRENORPHINE/NALOXONE 8 MG/2 MG FILM PACKET SL SCH (22:05)
[2023-03-20] MEDS: chlordiazePOXIDE HCL 25 MG CAPSULE PO SCH ×4 (05:17→22:06)
[2023-03-20] MEDS: METHOCARBAMOL 500 MG TABLET PO PRN ×2 (05:19→17:52)
[2023-03-20 08:52] LABS: HEMATOCRIT 35.8 % (35.4-49); HEMOGLOBIN 12.3 GM/dL (11.7-16.9); MCH 29.2 pg (25.7-33.7); MCHC 34.3 g/dl (32.0-35.9); MEAN CELL VOLUME 85.2 fl (80-96); PLATELET COUNT 232 10^3/uL (134-434); WHITE BLOOD COUNT 7.8 K/mm3 (4.0-10.0)
[2023-03-20 08:53] LABS: POTASSIUM 3.9 mmol/L (3.5-5.1)
[2023-03-20 08:58] LABS: BLOOD UREA NITROGEN 11.9 mg/dL (7-18); CALCIUM 7.9 mg/dL (8.5-10.1)
[2023-03-20 09:01] LABS: CREATININE 0.8 mg/dL (0.55-1.3)
[2023-03-20 09:03] LABS: BILIRUBIN,TOTAL 0.3 mg/dL (0.2-1); TOT PROT 6.2 g/dl (6.4-8.2)
[2023-03-20] MEDS: BUPRENORPHINE/NALOXONE 8 MG/2 MG FILM PACKET SL SCH ×2 (10:22→22:08)
[2023-03-20] MEDS: PRENATAL VITAMINS W/ FOLIC ACID TABLET (FP) PO SCH (10:22)
[2023-03-20] MEDS: NICOTINE 14 MG/24 HOURS TOPICAL PATCH TD SCH (10:24)
[2023-03-20] MEDS: hydrOXYzine PAMOATE 25 MG CAPSULE (FP) PO PRN ×2 (12:33→22:07)
[2023-03-20] MEDS: chlordiazePOXIDE HCL 25 MG CAPSULE PO PRN (14:41)
[2023-03-20] MEDS: MELATONIN 5 MG TABLETS PO SCH (22:07)
[2023-03-20] MEDS: THIAMINE HCL 100 MG TABLET (FP) PO SCH (22:07)
[2023-03-21] MEDS: hydrOXYzine PAMOATE 25 MG CAPSULE (FP) PO PRN ×2 (05:46→17:18)
[2023-03-21] MEDS: chlordiazePOXIDE HCL 25 MG CAPSULE PO SCH ×4 (05:46→22:22)
[2023-03-21] MEDS: METHOCARBAMOL 500 MG TABLET PO PRN ×2 (05:47→17:18)
[2023-03-21] MEDS: PRENATAL VITAMINS W/ FOLIC ACID TABLET (FP) PO SCH (10:31)
[2023-03-21] MEDS: BUPRENORPHINE/NALOXONE 8 MG/2 MG FILM PACKET SL SCH ×2 (10:32→22:23)
[2023-03-21] MEDS: NICOTINE 14 MG/24 HOURS TOPICAL PATCH TD SCH (10:34)
[2023-03-21] MEDS ORDERED: GABAPENTIN 100 MG CAPSULE PO ONE (10:40)
[2023-03-21] MEDS: chlordiazePOXIDE HCL 25 MG CAPSULE PO PRN ×2 (12:45→20:17)
[2023-03-21] MEDS: GABAPENTIN 100 MG CAPSULE PO SCH ×2 (13:27→22:23)
[2023-03-21] MEDS: THIAMINE HCL 100 MG TABLET (FP) PO SCH (22:23)
[2023-03-21] MEDS: MIRTAZAPINE 15 MG TABLET (FP) PO SCH (22:23)
[2023-03-21] MEDS: MELATONIN 5 MG TABLETS PO SCH (22:23)
[2023-03-22] MEDS ORDERED: chlordiazePOXIDE HCL 10 MG CAPSULE PO PRN
[2023-03-22] MEDS: chlordiazePOXIDE HCL 10 MG CAPSULE PO SCH ×4 (05:41→22:14)
[2023-03-22] MEDS: GABAPENTIN 100 MG CAPSULE PO SCH ×3 (05:41→22:14)
[2023-03-22] MEDS: hydrOXYzine PAMOATE 25 MG CAPSULE (FP) PO PRN ×2 (05:42→17:41)
[2023-03-22] MEDS: METHOCARBAMOL 500 MG TABLET PO PRN ×2 (05:44→17:41)
[2023-03-22] MEDS: NICOTINE 14 MG/24 HOURS TOPICAL PATCH TD SCH (10:05)
[2023-03-22] MEDS: BUPRENORPHINE/NALOXONE 8 MG/2 MG FILM PACKET SL SCH ×2 (10:05→22:13)
[2023-03-22] MEDS: PRENATAL VITAMINS W/ FOLIC ACID TABLET (FP) PO SCH (10:05)
[2023-03-22] MEDS: MELATONIN 5 MG TABLETS PO SCH (22:13)
[2023-03-22] MEDS: THIAMINE HCL 100 MG TABLET (FP) PO SCH (22:13)
[2023-03-22] MEDS: MIRTAZAPINE 15 MG TABLET (FP) PO SCH (22:13)
[2023-03-23] MEDS ORDERED: chlordiazePOXIDE HCL 10 MG CAPSULE PO SCH (05:00)
[2023-03-23] MEDS: GABAPENTIN 100 MG CAPSULE PO SCH ×2 (05:40→14:11)
[2023-03-23] MEDS: METHOCARBAMOL 500 MG TABLET PO PRN ×2 (05:43→12:50)
[2023-03-23] MEDS: hydrOXYzine PAMOATE 25 MG CAPSULE (FP) PO PRN ×2 (05:43→14:11)
[2023-03-23] MEDS: NICOTINE 14 MG/24 HOURS TOPICAL PATCH TD SCH (10:03)
[2023-03-23] MEDS: BUPRENORPHINE/NALOXONE 8 MG/2 MG FILM PACKET SL SCH (10:03)
[2023-03-23] MEDS: PRENATAL VITAMINS W/ FOLIC ACID TABLET (FP) PO SCH (10:03)
[2023-03-23 13:15] VITALS: BP 110/72; PULSE 88; RESP 18; TEMP 98.2
[2023-03-24] MEDS ORDERED: chlordiazePOXIDE HCL 10 MG CAPSULE PO ONE (05:00)
== END 2023-03-23 15:51 | disposition home or self-care (01) | DRG 773 ==
LOC: YASAS 11:37 → Y3N 15:23
PROVIDERS: ADMIT Allergy & Immunology; ATTEND Surgery
PROC: HZ2ZZZZ Detoxification Services for Substance Abuse Treatment (ICD-10-PCS; principal; 2023-03-19)
DX: F10.230 Alcohol dependence with withdrawal, uncomplicated (principal); F11.20 Opioid dependence, uncomplicated; F14.20 Cocaine dependence, uncomplicated; F12.20 Cannabis dependence, uncomplicated; F17.210 Nicotine dependence, cigarettes, uncomplicated; F19.24 Other psychoactive substance dependence with psychoactive substance-induced mood disorder; E78.5 Hyperlipidemia, unspecified; Z86.59 Personal history of other mental and behavioral disorders; Z88.0 Allergy status to penicillin
CPT/HCPCS: 36415; 80053; 85027; 86780; 87635; 87811

== ENCOUNTER 2023-04-21 15:32 | Inpatient (IN) | payer OTHER ==
[2023-04-21 19:02] VITALS: BMI 28.3
[2023-04-21] MEDS ORDERED: IBUPROFEN 600 MG TABLET (FP) PO PRN (19:53)
[2023-04-21] MEDS ORDERED: NALOXONE HCL 0.4 MG/ML VIAL IM PRN (19:53)
[2023-04-21] MEDS ORDERED: LOPERAMIDE HCL 2 MG CAPSULE PO PRN (19:53)
[2023-04-21] MEDS ORDERED: ACETAMINOPHEN 325 MG TABLET (FP) PO PRN (19:53)
[2023-04-21] MEDS ORDERED: guaiFENesin 600 MG TABLET.ER (FP) PO PRN (19:53)
[2023-04-21] MEDS ORDERED: methaDONE HCL 10 MG TABLET (FOR DETOX USE ONLY) PO ONE (19:53)
[2023-04-21] MEDS ORDERED: NALOXONE HCL (KLOXXADO) 8 MG SPRAY NS PRN (19:53)
[2023-04-21] MEDS ORDERED: MAG HYDROX/AL HYDROX/SIMETH 30 ML UNIT-DOSE CUP PO PRN (19:53)
[2023-04-21] MEDS ORDERED: MAGNESIUM HYDROX 2400MG/30ML ORAL SUSPENSION 30 ML CUP PO PRN (19:53)
[2023-04-21] MEDS ORDERED: BENZONATATE 200 MG CAPSULE PO PRN (19:53)
[2023-04-21] MEDS ORDERED: DICYCLOMINE HCL 10 MG CAPSULE PO PRN (19:53)
[2023-04-21] MEDS ORDERED: ONDANSETRON *ODT* 4 MG TABLET SL PRN (19:53)
[2023-04-21] MEDS ORDERED: BENZOCAINE/MENTHOL (CHLORASEPTIC ) LOZENGE MM PRN (19:53)
[2023-04-21] MEDS ORDERED: NICOTINE POLACRILEX 4 MG GUM BUC PRN (19:53)
[2023-04-21] MEDS ORDERED: BISMUTH SUBSALICYLATE 524 MG/30 ML PO PRN (19:53)
[2023-04-21] MEDS ORDERED: IBUPROFEN 400 MG TABLET (FP) PO PRN (19:53)
[2023-04-21] MEDS ORDERED: POLYETHYLENE GLYCOL (HEALTHYLAX) 3350 17 GM PACKET PO PRN (19:53)
[2023-04-21] MEDS: chlordiazePOXIDE HCL 25 MG CAPSULE PO SCH (22:06)
[2023-04-21] MEDS: MELATONIN 5 MG TABLETS PO SCH (22:06)
[2023-04-21] MEDS: THIAMINE HCL 100 MG TABLET (FP) PO SCH (22:06)
[2023-04-21] MEDS: hydrOXYzine PAMOATE 25 MG CAPSULE (FP) PO PRN (22:06)
[2023-04-22] MEDS: chlordiazePOXIDE HCL 25 MG CAPSULE PO SCH ×4 (05:22→22:04)
[2023-04-22] MEDS: hydrOXYzine PAMOATE 25 MG CAPSULE (FP) PO PRN ×2 (05:24→22:04)
[2023-04-22 08:24] LABS: EPI CELLS >36 /uL (0-25.1); HYALINE CASTS 31 /uL (0-3.1); PH,URINE 5.5 (5.0-8.0); URINE APPEARANCE TURBID; URINE BACTERIA 48 /uL (0-1359); URINE BILIRUBIN 1+ (NEGATIVE); URINE COLOR ORANGE; URINE GLUCOSE (UA) NEGATIVE (NEGATIVE); URINE KETONE TRACE (NEGATIVE); URINE LEUK ESTERASE TRACE (NEGATIVE); URINE NITRITE NEGATIVE (NEGATIVE); URINE PROTEIN 1+ (NEGATIVE); URINE RBC 9 /uL (0-23.9); URINE WBC 133 /uL (0-25.8)
[2023-04-22] MEDS ORDERED: methaDONE HCL 10 MG TABLET (FOR DETOX USE ONLY) PO ONE (10:00)
[2023-04-22] MEDS: PRENATAL VITAMINS W/ FOLIC ACID TABLET (FP) PO SCH (10:07)
[2023-04-22] MEDS: NICOTINE 14 MG/24 HOURS TOPICAL PATCH TD SCH (10:07)
[2023-04-22] MEDS: cloNIDine HCL 0.1 MG TABLET PO PRN ×2 (10:11→17:10)
[2023-04-22 11:12] LABS: HEMATOCRIT 41.4 % (35.4-49); HEMOGLOBIN 13.2 GM/dL (11.7-16.9); MCHC 31.9 g/dl (32.0-35.9); MEAN CELL VOLUME 87.5 fl (80-96); MEAN PLT VOLUME 8.1 fl (7.5-11.1); PLATELET COUNT 284 10^3/uL (134-434); RBC 4.73 M/mm3 (4.00-5.60); RDW 17.4 % (11.9-15.9); WHITE BLOOD COUNT 10.6 K/mm3 (4.0-10.0)
[2023-04-22 11:15] LABS: CHLORIDE 101 mmol/L (98-107); POTASSIUM 3.6 mmol/L (3.5-5.1); SODIUM 139 mmol/L (136-145)
[2023-04-22 11:29] LABS: ALBUMIN 3.6 g/dl (3.4-5.0); CALCIUM 8.8 mg/dL (8.5-10.1); GLUCOSE,RANDOM 109 mg/dL (74-106)
[2023-04-22 11:30] LABS: ANION GAP 6 mmol/L (4-13); BLOOD UREA NITROGEN 10.4 mg/dL (7-18); CO2 32 mmol/L (21-32)
[2023-04-22 11:32] LABS: BILIRUBIN,TOTAL 0.6 mg/dL (0.2-1); CREATININE 1.1 mg/dL (0.55-1.3); SGOT/AST 19 U/L (15-37); SGPT/ALT 32 U/L (13-61)
[2023-04-22 11:33] LABS: ALK PHOS 97 U/L (45-117)
[2023-04-22 11:34] LABS: TOT PROT 7.7 g/dl (6.4-8.2)
[2023-04-22] MEDS: chlordiazePOXIDE HCL 25 MG CAPSULE PO PRN (13:44)
[2023-04-22] MEDS: traZODone HCL 50 MG TABLET (FP) PO SCH (22:04)
[2023-04-22] MEDS: GABAPENTIN 100 MG CAPSULE PO SCH (22:04)
[2023-04-22] MEDS: THIAMINE HCL 100 MG TABLET (FP) PO SCH (22:04)
[2023-04-22] MEDS: MELATONIN 5 MG TABLETS PO SCH (22:04)
[2023-04-23] MEDS: chlordiazePOXIDE HCL 25 MG CAPSULE PO SCH ×4 (05:22→22:11)
[2023-04-23] MEDS: GABAPENTIN 100 MG CAPSULE PO SCH (05:23)
[2023-04-23] MEDS: cloNIDine HCL 0.1 MG TABLET PO PRN ×3 (05:24→18:19)
[2023-04-23] MEDS: hydrOXYzine PAMOATE 25 MG CAPSULE (FP) PO PRN ×2 (05:24→22:10)
[2023-04-23] MEDS ORDERED: methaDONE HCL 10 MG TABLET (FOR DETOX USE ONLY) PO ONE ×2 (09:25→10:00)
[2023-04-23] MEDS: NICOTINE 14 MG/24 HOURS TOPICAL PATCH TD SCH (10:04)
[2023-04-23] MEDS: PRENATAL VITAMINS W/ FOLIC ACID TABLET (FP) PO SCH (10:05)
[2023-04-23] MEDS: chlordiazePOXIDE HCL 25 MG CAPSULE PO PRN (12:17)
[2023-04-23] MEDS: GABAPENTIN 300 MG CAPSULE PO SCH ×2 (13:56→22:10)
[2023-04-23 17:08] LABS: BASO % 0.4 % (0-2.0); EOS % 3.1 % (0-4.5); HEMATOCRIT 38.1 % (35.4-49); HEMOGLOBIN 12.4 GM/dL (11.7-16.9); LYMPH % 23.4 % (8-40); MCH 27.7 pg (25.7-33.7); MCHC 32.4 g/dl (32.0-35.9); MEAN CELL VOLUME 85.3 fl (80-96); MEAN PLT VOLUME 8.2 fl (7.5-11.1); MONO % 8.9 % (3.8-10.2); NEUT % 64.2 % (42.8-82.8); PLATELET COUNT 226 10^3/uL (134-434); RBC 4.47 M/mm3 (4.00-5.60); RDW 17.9 % (11.9-15.9); WHITE BLOOD COUNT 7.1 K/mm3 (4.0-10.0)
[2023-04-23] MEDS: traZODone HCL 50 MG TABLET (FP) PO SCH (22:10)
[2023-04-23] MEDS: MELATONIN 5 MG TABLETS PO SCH (22:10)
[2023-04-23] MEDS: THIAMINE HCL 100 MG TABLET (FP) PO SCH (22:10)
[2023-04-24] MEDS: chlordiazePOXIDE HCL 10 MG CAPSULE PO SCH ×4 (05:27→22:17)
[2023-04-24] MEDS: hydrOXYzine PAMOATE 25 MG CAPSULE (FP) PO PRN (06:08)
[2023-04-24] MEDS: GABAPENTIN 300 MG CAPSULE PO SCH ×3 (06:08→22:17)
[2023-04-24] MEDS: cloNIDine HCL 0.1 MG TABLET PO PRN ×2 (10:04→17:37)
[2023-04-24] MEDS: PRENATAL VITAMINS W/ FOLIC ACID TABLET (FP) PO SCH (10:06)
[2023-04-24] MEDS: NICOTINE 14 MG/24 HOURS TOPICAL PATCH TD SCH (10:06)
[2023-04-24] MEDS ORDERED: hydrOXYzine PAMOATE 50 MG CAPSULE (FP) PO PRN (12:52)
[2023-04-24] MEDS: METHOCARBAMOL 500 MG TABLET PO PRN (13:29)
[2023-04-24] MEDS: chlordiazePOXIDE HCL 10 MG CAPSULE PO PRN ×2 (13:31→19:31)
[2023-04-24] MEDS: traZODone HCL 50 MG TABLET (FP) PO SCH (22:17)
[2023-04-24] MEDS: THIAMINE HCL 100 MG TABLET (FP) PO SCH (22:17)
[2023-04-24] MEDS: MELATONIN 5 MG TABLETS PO SCH (22:17)
[2023-04-25] MEDS ORDERED: chlordiazePOXIDE HCL 10 MG CAPSULE PO SCH (05:00)
[2023-04-25] MEDS: GABAPENTIN 300 MG CAPSULE PO SCH (05:20)
[2023-04-25] MEDS: METHOCARBAMOL 500 MG TABLET PO PRN (05:21)
[2023-04-25] MEDS: cloNIDine HCL 0.1 MG TABLET PO PRN (05:23)
[2023-04-25 09:09] VITALS: BP 120/73; PULSE 62; RESP 20; TEMP 98.2
[2023-04-25] MEDS ORDERED: methaDONE HCL 10 MG TABLET (FOR DETOX USE ONLY) PO ONE ×2 (10:00)
[2023-04-25] MEDS: PRENATAL VITAMINS W/ FOLIC ACID TABLET (FP) PO SCH (10:05)
[2023-04-25] MEDS: NICOTINE 14 MG/24 HOURS TOPICAL PATCH TD SCH (10:05)
[2023-04-25] MEDS ORDERED: methaDONE 40 MG, methaDONE 10 MG PO SCH (11:00)
[2023-04-25] MEDS ORDERED: methaDONE HCL 10 MG TABLET PO SCH (11:00)
[2023-04-26] MEDS ORDERED: chlordiazePOXIDE HCL 10 MG CAPSULE PO ONE (05:00)
== END 2023-04-25 12:47 | disposition other institution (70) | DRG 773 ==
LOC: YASAS 15:32 → Y3N 20:17
PROVIDERS: ADMIT Allergy & Immunology; ATTEND Surgery
PROC: HZ2ZZZZ Detoxification Services for Substance Abuse Treatment (ICD-10-PCS; principal; 2023-04-21)
DX: F10.230 Alcohol dependence with withdrawal, uncomplicated (principal); F11.20 Opioid dependence, uncomplicated; F13.20 Sedative, hypnotic or anxiolytic dependence, uncomplicated; F14.20 Cocaine dependence, uncomplicated; F12.20 Cannabis dependence, uncomplicated; F17.210 Nicotine dependence, cigarettes, uncomplicated; F19.24 Other psychoactive substance dependence with psychoactive substance-induced mood disorder; F41.9 Anxiety disorder, unspecified; G47.00 Insomnia, unspecified; Z88.0 Allergy status to penicillin
CPT/HCPCS: 36415; 80053; 80307; 81003; 85025; 85027; 86780; 87635; Q0162

== ENCOUNTER 2023-04-25 12:57 | Inpatient (IN) | payer OTHER ==
[2023-04-25] MEDS ORDERED: ACETAMINOPHEN 325 MG TABLET (FP) PO PRN (14:19)
[2023-04-25] MEDS ORDERED: NALOXONE HCL (KLOXXADO) 8 MG SPRAY NS PRN (14:19)
[2023-04-25] MEDS ORDERED: IBUPROFEN 400 MG TABLET (FP) PO PRN (14:19)
[2023-04-25] MEDS ORDERED: BENZONATATE 200 MG CAPSULE PO PRN (14:19)
[2023-04-25] MEDS ORDERED: NICOTINE 14 MG/24 HOURS TOPICAL PATCH TD PRN (14:19)
[2023-04-25] MEDS ORDERED: AMMONIUM LACTATE 12% LOTION 225 GM BOTTLE TP PRN (14:19)
[2023-04-25] MEDS ORDERED: guaiFENesin 600 MG TABLET.ER (FP) PO PRN (14:19)
[2023-04-25] MEDS ORDERED: NICOTINE POLACRILEX 4 MG GUM BUC PRN (14:19)
[2023-04-25] MEDS ORDERED: LOPERAMIDE HCL 2 MG CAPSULE PO PRN (14:19)
[2023-04-25] MEDS ORDERED: MAG HYDROX/AL HYDROX/SIMETH 30 ML UNIT-DOSE CUP PO PRN (14:19)
[2023-04-25] MEDS ORDERED: COLLOIDAL OATMEAL 1 BAR EACH TP PRN (14:19)
[2023-04-25] MEDS ORDERED: NALOXONE HCL 0.4 MG/ML VIAL IVPUSH PRN (14:19)
[2023-04-25] MEDS ORDERED: IBUPROFEN 600 MG TABLET (FP) PO PRN (14:19)
[2023-04-25] MEDS ORDERED: BENZOCAINE/MENTHOL (CHLORASEPTIC ) LOZENGE MM PRN (14:19)
[2023-04-25] MEDS ORDERED: POLYETHYLENE GLYCOL (HEALTHYLAX) 3350 17 GM PACKET PO PRN (14:19)
[2023-04-25] MEDS: hydrOXYzine PAMOATE 25 MG CAPSULE (FP) PO PRN (15:45)
[2023-04-25] MEDS: GABAPENTIN 300 MG CAPSULE PO SCH (21:34)
[2023-04-25] MEDS: MELATONIN 5 MG TABLETS PO SCH (21:34)
[2023-04-25] MEDS: THIAMINE HCL 100 MG TABLET (FP) PO SCH (21:34)
[2023-04-25] MEDS: traZODone HCL 50 MG TABLET (FP) PO SCH (21:34)
[2023-04-25] MEDS ORDERED: GABAPENTIN 300 MG CAPSULE PO SCH (22:00)
[2023-04-26] MEDS: methaDONE 40 MG, methaDONE 10 MG PO SCH (06:09)
[2023-04-26] MEDS: GABAPENTIN 300 MG CAPSULE PO SCH ×3 (06:09→21:02)
[2023-04-26] MEDS ORDERED: methaDONE HCL 40 MG DISPERSABLE TABLET PO SCH (10:00)
[2023-04-26] MEDS: PRENATAL VITAMINS W/ FOLIC ACID TABLET (FP) PO SCH (10:26)
[2023-04-26] MEDS: hydrOXYzine PAMOATE 25 MG CAPSULE (FP) PO PRN ×2 (10:27→21:03)
[2023-04-26] MEDS: traZODone HCL 50 MG TABLET (FP) PO SCH (21:02)
[2023-04-26] MEDS: THIAMINE HCL 100 MG TABLET (FP) PO SCH (21:03)
[2023-04-26] MEDS: MELATONIN 5 MG TABLETS PO SCH (21:03)
[2023-04-27] MEDS: methaDONE 40 MG, methaDONE 10 MG PO SCH (05:50)
[2023-04-27] MEDS: GABAPENTIN 300 MG CAPSULE PO SCH ×3 (05:52→21:37)
[2023-04-27] MEDS: hydrOXYzine PAMOATE 25 MG CAPSULE (FP) PO PRN ×2 (05:53→13:27)
[2023-04-27] MEDS: PRENATAL VITAMINS W/ FOLIC ACID TABLET (FP) PO SCH (10:15)
[2023-04-27] MEDS: traZODone HCL 50 MG TABLET (FP) PO SCH (21:37)
[2023-04-27] MEDS: MELATONIN 5 MG TABLETS PO SCH (21:37)
[2023-04-27] MEDS: THIAMINE HCL 100 MG TABLET (FP) PO SCH (21:37)
[2023-04-28] MEDS: GABAPENTIN 300 MG CAPSULE PO SCH ×3 (05:49→21:38)
[2023-04-28] MEDS: hydrOXYzine PAMOATE 25 MG CAPSULE (FP) PO PRN ×3 (05:49→21:38)
[2023-04-28] MEDS: methaDONE 40 MG, methaDONE 10 MG PO SCH (05:49)
[2023-04-28] MEDS: PRENATAL VITAMINS W/ FOLIC ACID TABLET (FP) PO SCH (10:11)
[2023-04-28] MEDS: METHOCARBAMOL 500 MG TABLET PO PRN (10:13)
[2023-04-28] MEDS: THIAMINE HCL 100 MG TABLET (FP) PO SCH (21:38)
[2023-04-28] MEDS: MELATONIN 5 MG TABLETS PO SCH (21:38)
[2023-04-28] MEDS: traZODone HCL 50 MG TABLET (FP) PO SCH (21:38)
[2023-04-29] MEDS: GABAPENTIN 300 MG CAPSULE PO SCH ×3 (05:57→21:36)
[2023-04-29] MEDS: methaDONE 40 MG, methaDONE 10 MG PO SCH (05:57)
[2023-04-29] MEDS: hydrOXYzine PAMOATE 25 MG CAPSULE (FP) PO PRN ×2 (05:57→21:36)
[2023-04-29] MEDS: PRENATAL VITAMINS W/ FOLIC ACID TABLET (FP) PO SCH (10:08)
[2023-04-29] MEDS: METHOCARBAMOL 500 MG TABLET PO PRN (10:09)
[2023-04-29] MEDS: MAGNESIUM HYDROX 2400MG/30ML ORAL SUSPENSION 30 ML CUP PO PRN (10:10)
[2023-04-29] MEDS: MELATONIN 5 MG TABLETS PO SCH (21:35)
[2023-04-29] MEDS: THIAMINE HCL 100 MG TABLET (FP) PO SCH (21:36)
[2023-04-29] MEDS: traZODone HCL 50 MG TABLET (FP) PO SCH (21:36)
[2023-04-30] MEDS: methaDONE 40 MG, methaDONE 10 MG PO SCH (05:50)
[2023-04-30] MEDS: hydrOXYzine PAMOATE 25 MG CAPSULE (FP) PO PRN ×2 (05:50→21:24)
[2023-04-30] MEDS: GABAPENTIN 300 MG CAPSULE PO SCH ×3 (05:50→21:23)
[2023-04-30] MEDS: PRENATAL VITAMINS W/ FOLIC ACID TABLET (FP) PO SCH (09:49)
[2023-04-30] MEDS: METHOCARBAMOL 500 MG TABLET PO PRN (09:49)
[2023-04-30] MEDS: THIAMINE HCL 100 MG TABLET (FP) PO SCH (21:22)
[2023-04-30] MEDS: MELATONIN 5 MG TABLETS PO SCH (21:22)
[2023-04-30] MEDS: traZODone HCL 50 MG TABLET (FP) PO SCH (21:23)
[2023-05-01] MEDS: hydrOXYzine PAMOATE 25 MG CAPSULE (FP) PO PRN (05:35)
[2023-05-01] MEDS: GABAPENTIN 300 MG CAPSULE PO SCH ×2 (05:35→14:51)
[2023-05-01] MEDS: methaDONE 40 MG, methaDONE 20 MG PO SCH (05:35)
[2023-05-01] MEDS ORDERED: methaDONE HCL 40 MG DISPERSABLE TABLET PO SCH (06:00)
[2023-05-01] MEDS: PRENATAL VITAMINS W/ FOLIC ACID TABLET (FP) PO SCH (09:37)
[2023-05-01] MEDS: METHOCARBAMOL 500 MG TABLET PO PRN (09:38)
[2023-05-01] MEDS: MAGNESIUM HYDROX 2400MG/30ML ORAL SUSPENSION 30 ML CUP PO PRN (09:40)
[2023-05-01] MEDS: traZODone HCL 100 MG TABLET (FP) PO SCH (21:06)
[2023-05-01] MEDS: THIAMINE HCL 100 MG TABLET (FP) PO SCH (21:06)
[2023-05-01] MEDS: MELATONIN 5 MG TABLETS PO SCH (21:06)
[2023-05-01] MEDS: GABAPENTIN 400 MG CAPSULE PO SCH (21:07)
[2023-05-02] MEDS: GABAPENTIN 400 MG CAPSULE PO SCH ×3 (05:54→21:25)
[2023-05-02] MEDS: methaDONE 40 MG, methaDONE 20 MG PO SCH (05:55)
[2023-05-02] MEDS: hydrOXYzine PAMOATE 25 MG CAPSULE (FP) PO PRN (05:59)
[2023-05-02] MEDS: PRENATAL VITAMINS W/ FOLIC ACID TABLET (FP) PO SCH (09:50)
[2023-05-02] MEDS: MELATONIN 5 MG TABLETS PO SCH (21:24)
[2023-05-02] MEDS: THIAMINE HCL 100 MG TABLET (FP) PO SCH (21:24)
[2023-05-02] MEDS: traZODone HCL 100 MG TABLET (FP) PO SCH (21:24)
[2023-05-03] MEDS: methaDONE 40 MG, methaDONE 20 MG PO SCH (06:00)
[2023-05-03] MEDS: GABAPENTIN 400 MG CAPSULE PO SCH ×3 (06:00→21:14)
[2023-05-03] MEDS: hydrOXYzine PAMOATE 25 MG CAPSULE (FP) PO PRN ×3 (06:01→21:15)
[2023-05-03] MEDS: PRENATAL VITAMINS W/ FOLIC ACID TABLET (FP) PO SCH (09:41)
[2023-05-03] MEDS: THIAMINE HCL 100 MG TABLET (FP) PO SCH (21:14)
[2023-05-03] MEDS: traZODone HCL 100 MG TABLET (FP) PO SCH (21:14)
[2023-05-03] MEDS: MELATONIN 5 MG TABLETS PO SCH (21:14)
[2023-05-04] MEDS: methaDONE 40 MG, methaDONE 20 MG PO SCH (06:02)
[2023-05-04] MEDS: GABAPENTIN 400 MG CAPSULE PO SCH ×3 (06:02→21:25)
[2023-05-04] MEDS: PRENATAL VITAMINS W/ FOLIC ACID TABLET (FP) PO SCH (09:59)
[2023-05-04] MEDS: hydrOXYzine PAMOATE 25 MG CAPSULE (FP) PO PRN ×2 (10:00→21:25)
[2023-05-04] MEDS: traZODone HCL 100 MG TABLET (FP) PO SCH (21:25)
[2023-05-04] MEDS: THIAMINE HCL 100 MG TABLET (FP) PO SCH (21:25)
[2023-05-04] MEDS: MELATONIN 5 MG TABLETS PO SCH (21:25)
[2023-05-05] MEDS: methaDONE 40 MG, methaDONE 20 MG PO SCH (05:50)
[2023-05-05] MEDS: GABAPENTIN 400 MG CAPSULE PO SCH ×3 (05:50→21:21)
[2023-05-05] MEDS: hydrOXYzine PAMOATE 25 MG CAPSULE (FP) PO PRN ×2 (10:06→21:22)
[2023-05-05] MEDS: PRENATAL VITAMINS W/ FOLIC ACID TABLET (FP) PO SCH (10:06)
[2023-05-05] MEDS: THIAMINE HCL 100 MG TABLET (FP) PO SCH (21:21)
[2023-05-05] MEDS: MELATONIN 5 MG TABLETS PO SCH (21:21)
[2023-05-05] MEDS: traZODone HCL 100 MG TABLET (FP) PO SCH (21:22)
[2023-05-05] MEDS: MAGNESIUM HYDROX 2400MG/30ML ORAL SUSPENSION 30 ML CUP PO PRN (22:42)
[2023-05-06] MEDS: GABAPENTIN 400 MG CAPSULE PO SCH ×3 (05:55→21:18)
[2023-05-06] MEDS: methaDONE 40 MG, methaDONE 20 MG PO SCH (05:55)
[2023-05-06] MEDS: hydrOXYzine PAMOATE 25 MG CAPSULE (FP) PO PRN ×2 (09:28→21:19)
[2023-05-06] MEDS: PRENATAL VITAMINS W/ FOLIC ACID TABLET (FP) PO SCH (09:28)
[2023-05-06] MEDS: MELATONIN 5 MG TABLETS PO SCH (21:18)
[2023-05-06] MEDS: traZODone HCL 100 MG TABLET (FP) PO SCH (21:18)
[2023-05-06] MEDS: THIAMINE HCL 100 MG TABLET (FP) PO SCH (21:19)
[2023-05-07] MEDS: methaDONE 40 MG, methaDONE 20 MG PO SCH (06:41)
[2023-05-07] MEDS: GABAPENTIN 400 MG CAPSULE PO SCH ×3 (06:42→21:21)
[2023-05-07] MEDS: hydrOXYzine PAMOATE 25 MG CAPSULE (FP) PO PRN ×2 (06:43→21:21)
[2023-05-07] MEDS: PRENATAL VITAMINS W/ FOLIC ACID TABLET (FP) PO SCH (09:34)
[2023-05-07] MEDS: THIAMINE HCL 100 MG TABLET (FP) PO SCH (21:21)
[2023-05-07] MEDS: MELATONIN 5 MG TABLETS PO SCH (21:21)
[2023-05-07] MEDS: traZODone HCL 100 MG TABLET (FP) PO SCH (21:21)
[2023-05-08] MEDS: methaDONE 40 MG, methaDONE 20 MG PO SCH (05:57)
[2023-05-08] MEDS: GABAPENTIN 400 MG CAPSULE PO SCH ×3 (05:57→21:17)
[2023-05-08] MEDS: PRENATAL VITAMINS W/ FOLIC ACID TABLET (FP) PO SCH (09:38)
[2023-05-08] MEDS: hydrOXYzine PAMOATE 25 MG CAPSULE (FP) PO PRN ×2 (09:39→21:17)
[2023-05-08] MEDS: SELENIUM SULFIDE 2.25% 180 ML SHAMPOO TP SCH (09:39)
[2023-05-08] MEDS: MELATONIN 5 MG TABLETS PO SCH (21:16)
[2023-05-08] MEDS: traZODone HCL 100 MG TABLET (FP) PO SCH (21:17)
[2023-05-08] MEDS: THIAMINE HCL 100 MG TABLET (FP) PO SCH (21:17)
[2023-05-09] MEDS: GABAPENTIN 400 MG CAPSULE PO SCH ×3 (05:59→21:33)
[2023-05-09] MEDS: methaDONE 40 MG, methaDONE 20 MG PO SCH (05:59)
[2023-05-09] MEDS: PRENATAL VITAMINS W/ FOLIC ACID TABLET (FP) PO SCH (10:00)
[2023-05-09] MEDS: SELENIUM SULFIDE 2.25% 180 ML SHAMPOO TP SCH (10:00)
[2023-05-09] MEDS: hydrOXYzine PAMOATE 25 MG CAPSULE (FP) PO PRN ×2 (10:01→21:33)
[2023-05-09] MEDS: THIAMINE HCL 100 MG TABLET (FP) PO SCH (21:33)
[2023-05-09] MEDS: traZODone HCL 100 MG TABLET (FP) PO SCH (21:33)
[2023-05-09] MEDS: MELATONIN 5 MG TABLETS PO SCH (21:33)
[2023-05-10] MEDS: GABAPENTIN 400 MG CAPSULE PO SCH ×3 (05:57→21:18)
[2023-05-10] MEDS: methaDONE 40 MG, methaDONE 20 MG PO SCH (05:57)
[2023-05-10] MEDS: PRENATAL VITAMINS W/ FOLIC ACID TABLET (FP) PO SCH (09:46)
[2023-05-10] MEDS: hydrOXYzine PAMOATE 25 MG CAPSULE (FP) PO PRN ×2 (09:46→21:18)
[2023-05-10] MEDS: SELENIUM SULFIDE 2.25% 180 ML SHAMPOO TP SCH (09:46)
[2023-05-10 15:22] LABS: HIV INTERPRETATION NEGATIVE (NEGATIVE)
[2023-05-10] MEDS: MELATONIN 5 MG TABLETS PO SCH (21:17)
[2023-05-10] MEDS: THIAMINE HCL 100 MG TABLET (FP) PO SCH (21:18)
[2023-05-10] MEDS: traZODone HCL 100 MG TABLET (FP) PO SCH (21:18)
[2023-05-11] MEDS: methaDONE 40 MG, methaDONE 20 MG PO SCH (05:41)
[2023-05-11] MEDS: GABAPENTIN 400 MG CAPSULE PO SCH ×3 (05:41→21:18)
[2023-05-11] MEDS: PRENATAL VITAMINS W/ FOLIC ACID TABLET (FP) PO SCH (09:53)
[2023-05-11] MEDS: SELENIUM SULFIDE 2.25% 180 ML SHAMPOO TP SCH (09:53)
[2023-05-11] MEDS: hydrOXYzine PAMOATE 25 MG CAPSULE (FP) PO PRN ×2 (09:54→21:18)
[2023-05-11] MEDS: MELATONIN 5 MG TABLETS PO SCH (21:18)
[2023-05-11] MEDS: THIAMINE HCL 100 MG TABLET (FP) PO SCH (21:18)
[2023-05-11] MEDS: traZODone HCL 100 MG TABLET (FP) PO SCH (21:18)
[2023-05-12] MEDS: GABAPENTIN 400 MG CAPSULE PO SCH ×3 (05:44→21:12)
[2023-05-12] MEDS: methaDONE 40 MG, methaDONE 20 MG PO SCH (05:44)
[2023-05-12] MEDS: PRENATAL VITAMINS W/ FOLIC ACID TABLET (FP) PO SCH (09:37)
[2023-05-12] MEDS: hydrOXYzine PAMOATE 25 MG CAPSULE (FP) PO PRN ×2 (09:38→21:12)
[2023-05-12] MEDS: SELENIUM SULFIDE 2.25% 180 ML SHAMPOO TP SCH (09:40)
[2023-05-12] MEDS: MELATONIN 5 MG TABLETS PO SCH (21:11)
[2023-05-12] MEDS: THIAMINE HCL 100 MG TABLET (FP) PO SCH (21:11)
[2023-05-12] MEDS: traZODone HCL 100 MG TABLET (FP) PO SCH (21:11)
[2023-05-13] MEDS: GABAPENTIN 400 MG CAPSULE PO SCH ×3 (06:05→21:07)
[2023-05-13] MEDS: methaDONE 40 MG, methaDONE 20 MG PO SCH (06:05)
[2023-05-13] MEDS: PRENATAL VITAMINS W/ FOLIC ACID TABLET (FP) PO SCH (09:35)
[2023-05-13] MEDS: SELENIUM SULFIDE 2.25% 180 ML SHAMPOO TP SCH (09:35)
[2023-05-13] MEDS: hydrOXYzine PAMOATE 25 MG CAPSULE (FP) PO PRN ×2 (09:36→21:07)
[2023-05-13] MEDS: THIAMINE HCL 100 MG TABLET (FP) PO SCH (21:07)
[2023-05-13] MEDS: MELATONIN 5 MG TABLETS PO SCH (21:07)
[2023-05-13] MEDS: traZODone HCL 100 MG TABLET (FP) PO SCH (21:07)
[2023-05-14] MEDS: GABAPENTIN 400 MG CAPSULE PO SCH ×3 (06:01→21:41)
[2023-05-14] MEDS: methaDONE 40 MG, methaDONE 20 MG PO SCH (06:01)
[2023-05-14 06:42] VITALS: BP 119/75; PULSE 72; RESP 18; TEMP 97.3
[2023-05-14] MEDS: PRENATAL VITAMINS W/ FOLIC ACID TABLET (FP) PO SCH (09:49)
[2023-05-14] MEDS: hydrOXYzine PAMOATE 25 MG CAPSULE (FP) PO PRN ×2 (09:50→21:40)
[2023-05-14] MEDS: SELENIUM SULFIDE 2.25% 180 ML SHAMPOO TP SCH (09:50)
[2023-05-14] MEDS: traZODone HCL 100 MG TABLET (FP) PO SCH (21:41)
[2023-05-14] MEDS: MELATONIN 5 MG TABLETS PO SCH (21:41)
[2023-05-14] MEDS: THIAMINE HCL 100 MG TABLET (FP) PO SCH (21:41)
== END 2023-05-14 22:51 | disposition other institution (70) | DRG 770 ==
LOC: YASAS 12:57 → Y5N 13:05
PROVIDERS: ADMIT Allergy & Immunology; ATTEND Psychiatry & Neurology Pain Medicine
PROC: HZ42ZZZ Group Counseling for Substance Abuse Treatment, Cognitive-Behavioral (ICD-10-PCS; principal; 2023-04-25)
DX: F10.20 Alcohol dependence, uncomplicated (principal); F11.20 Opioid dependence, uncomplicated; F14.20 Cocaine dependence, uncomplicated; F17.210 Nicotine dependence, cigarettes, uncomplicated; S00.83XA Contusion of other part of head, initial encounter; Y04.0XXA Assault by unarmed brawl or fight, initial encounter; Y92.230 Patient room in hospital as the place of occurrence of the external cause; F91.8 Other conduct disorders; Z91.199 Patient's noncompliance with other medical treatment and regimen due to unspecified reason; Z88.0 Allergy status to penicillin
CPT/HCPCS: 36415; 86803; 87389; 87491; 87522; 87591; 87661

== ENCOUNTER 2024-04-01 02:55 | Inpatient (IN) | payer OTHER ==
[2024-04-01 03:30] VITALS: BMI 33.0
[2024-04-01] MEDS ORDERED: IBUPROFEN 400 MG TABLET (FP) PO PRN (04:01)
[2024-04-01] MEDS ORDERED: NICOTINE POLACRILEX 2 MG LOZENGE BC PRN (04:01)
[2024-04-01] MEDS ORDERED: ACETAMINOPHEN 325 MG TABLET (FP) PO PRN (04:01)
[2024-04-01] MEDS ORDERED: MAG HYDROX/AL HYDROX/SIMETH 30 ML UNIT-DOSE CUP PO PRN (04:01)
[2024-04-01] MEDS ORDERED: NALOXONE (NARCAN) HCL 4 MG/0.1 ML SPRAY NS PRN (04:01)
[2024-04-01] MEDS ORDERED: guaiFENesin 600 MG TABLET.ER (FP) PO PRN (04:01)
[2024-04-01] MEDS ORDERED: NALOXONE (NYS OPIOID OVERDOSE PROGRAM) 4 MG/0.1 ML SPRAY NS PRN (04:01)
[2024-04-01] MEDS ORDERED: POLYETHYLENE GLYCOL (HEALTHYLAX) 3350 17 GM PACKET PO PRN (04:01)
[2024-04-01] MEDS ORDERED: BISMUTH SUBSALICYLATE 524 MG/30 ML PO PRN (04:01)
[2024-04-01] MEDS ORDERED: DICYCLOMINE HCL 10 MG CAPSULE PO PRN (04:01)
[2024-04-01] MEDS ORDERED: ONDANSETRON *ODT* 4 MG TABLET SL PRN (04:01)
[2024-04-01] MEDS ORDERED: BENZONATATE 200 MG CAPSULE PO PRN (04:01)
[2024-04-01] MEDS ORDERED: MAGNESIUM HYDROX 2400MG/30ML ORAL SUSPENSION 30 ML CUP PO PRN (04:01)
[2024-04-01] MEDS ORDERED: BENZOCAINE/MENTHOL (CHLORASEPTIC ) LOZENGE MM PRN (04:01)
[2024-04-01] MEDS ORDERED: LOPERAMIDE HCL 2 MG CAPSULE PO PRN (04:01)
[2024-04-01] MEDS ORDERED: chlordiazePOXIDE HCL 25 MG CAPSULE ONE ×2 (09:07→11:54)
[2024-04-01] MEDS ORDERED: methaDONE HCL 10 MG TABLET ONE (09:08)
[2024-04-01] MEDS ORDERED: PRENATAL VITAMINS W/ FOLIC ACID TABLET (FP) PO ONE (09:08)
[2024-04-01] MEDS: PRENATAL VITAMINS W/ FOLIC ACID TABLET (FP) PO SCH (09:10)
[2024-04-01] MEDS: chlordiazePOXIDE HCL 25 MG CAPSULE PO ONE (09:10)
[2024-04-01] MEDS: NICOTINE 14 MG/24 HOURS TOPICAL PATCH TD SCH (09:12)
[2024-04-01] MEDS: chlordiazePOXIDE HCL 25 MG CAPSULE PO SCH (11:54)
[2024-04-01] MEDS: methaDONE HCL 10 MG TABLET PO ONE (11:57)
[2024-04-01] MEDS: hydrOXYzine PAMOATE 25 MG CAPSULE (FP) PO PRN (14:06)
[2024-04-01] MEDS: METHOCARBAMOL 500 MG TABLET PO PRN (14:06)
[2024-04-01 14:50] LABS: HEMATOCRIT 37.4 % (35.4-49); HEMOGLOBIN 12.1 GM/dL (11.7-16.9); MCH 27.2 pg (25.7-33.7); MCHC 32.4 g/dl (32.0-35.9); MEAN CELL VOLUME 83.9 fl (80-96); MEAN PLT VOLUME 7.7 fl (7.5-11.1); PLATELET COUNT 282 10^3/uL (134-434); RBC 4.45 M/mm3 (4.00-5.60); RDW 17.3 % (11.9-15.9); WHITE BLOOD COUNT 6.9 K/mm3 (4.0-10.0)
[2024-04-01 15:03] LABS: CHLORIDE 109 mmol/L (98-107); POTASSIUM 3.9 mmol/L (3.5-5.1); SODIUM 143 mmol/L (136-145)
[2024-04-01 15:23] LABS: ALBUMIN 3.6 g/dl (3.4-5.0); ANION GAP 7 mmol/L (4-13); CO2 27 mmol/L (21-32); GLUCOSE,RANDOM 103 mg/dL (74-106)
[2024-04-01 15:26] LABS: CREATININE 0.9 mg/dL (0.55-1.3)
[2024-04-01 15:27] LABS: BILIRUBIN,TOTAL 0.2 mg/dL (0.2-1)
[2024-04-01 15:28] LABS: ALK PHOS 155 U/L (45-117); SGPT/ALT 66 U/L (13-61)
[2024-04-01 15:29] LABS: TOT PROT 7.4 g/dl (6.4-8.2)
[2024-04-01 15:48] LABS: SGOT/AST 39 U/L (15-37)
[2024-04-01] MEDS: IBUPROFEN 600 MG TABLET (FP) PO PRN (17:42)
[2024-04-01] MEDS: chlordiazePOXIDE HCL 25 MG CAPSULE PO PRN (19:33)
[2024-04-01] MEDS: THIAMINE 100 MG TABLET PO SCH (22:27)
[2024-04-01] MEDS: MELATONIN 5 MG TABLETS PO SCH (22:27)
[2024-04-02] MEDS ORDERED: methaDONE HCL 10 MG TABLET PO SCH (06:00)
[2024-04-02] MEDS: GABAPENTIN 300 MG CAPSULE PO SCH (13:11)
[2024-04-02] MEDS ORDERED: traZODone HCL 100 MG TABLET (FP) PO SCH (22:00)
[2024-04-02] MEDS: traZODone HCL 50 MG TABLET (FP) PO SCH (22:14)
[2024-04-03] MEDS: chlordiazePOXIDE HCL 25 MG CAPSULE PO SCH (05:37)
[2024-04-03 09:19] VITALS: RESP 18
[2024-04-03 15:54] VITALS: TEMP 97.8
[2024-04-03 18:01] VITALS: BP 107/60; PULSE 60
[2024-04-04] MEDS ORDERED: chlordiazePOXIDE HCL 10 MG CAPSULE PO PRN
[2024-04-04] MEDS ORDERED: chlordiazePOXIDE HCL 10 MG CAPSULE PO SCH (05:00)
[2024-04-05] MEDS ORDERED: chlordiazePOXIDE HCL 10 MG CAPSULE PO SCH (05:00)
[2024-04-06] MEDS ORDERED: chlordiazePOXIDE HCL 10 MG CAPSULE PO ONE (05:00)
== END 2024-04-03 18:10 | disposition left against medical advice (07) | DRG 770 ==
LOC: YASAS 02:55 → Y6N 13:05
PROVIDERS: ADMIT Surgery; ATTEND Allergy & Immunology
PROC: HZ2ZZZZ Detoxification Services for Substance Abuse Treatment (ICD-10-PCS; principal; 2024-04-01)
DX: F10.230 Alcohol dependence with withdrawal, uncomplicated (principal); F11.20 Opioid dependence, uncomplicated; F13.10 Sedative, hypnotic or anxiolytic abuse, uncomplicated; F17.210 Nicotine dependence, cigarettes, uncomplicated; F19.282 Other psychoactive substance dependence with psychoactive substance-induced sleep disorder; F19.280 Other psychoactive substance dependence with psychoactive substance-induced anxiety disorder; F19.24 Other psychoactive substance dependence with psychoactive substance-induced mood disorder; F41.9 Anxiety disorder, unspecified; F32.A Depression, unspecified; E78.5 Hyperlipidemia, unspecified; Z62.810 Personal history of physical and sexual abuse in childhood; Z86.19 Personal history of other infectious and parasitic diseases; Z88.0 Allergy status to penicillin; Z59.00 Homelessness unspecified
CPT/HCPCS: 36415; 80053; 80305; 80307; 85027; 86780; 93005; 93010

== ENCOUNTER 2024-05-17 08:08 | Inpatient (IN) | payer OTHER ==
[2024-05-17 09:08] VITALS: BMI 33.7
[2024-05-17] MEDS ORDERED: ONDANSETRON *ODT* 4 MG TABLET SL PRN (09:17)
[2024-05-17] MEDS ORDERED: guaiFENesin 600 MG TABLET.ER (FP) PO PRN (09:17)
[2024-05-17] MEDS ORDERED: DICYCLOMINE HCL 10 MG CAPSULE PO PRN (09:17)
[2024-05-17] MEDS ORDERED: LOPERAMIDE HCL 2 MG CAPSULE PO PRN (09:17)
[2024-05-17] MEDS ORDERED: ACETAMINOPHEN 325 MG TABLET (FP) PO PRN (09:17)
[2024-05-17] MEDS ORDERED: POLYETHYLENE GLYCOL (HEALTHYLAX) 3350 17 GM PACKET PO PRN (09:17)
[2024-05-17] MEDS ORDERED: BENZONATATE 200 MG CAPSULE PO PRN (09:17)
[2024-05-17] MEDS ORDERED: BENZOCAINE/MENTHOL (CHLORASEPTIC ) LOZENGE MM PRN (09:17)
[2024-05-17] MEDS ORDERED: P-EPHED 60MG/TRIPROLIDI 2.5MG TABLET PO PRN (09:17)
[2024-05-17] MEDS ORDERED: MAGNESIUM HYDROX 2400MG/30ML ORAL SUSPENSION 30 ML CUP PO PRN (09:17)
[2024-05-17] MEDS ORDERED: NALOXONE (NARCAN) HCL 4 MG/0.1 ML SPRAY NS PRN (09:17)
[2024-05-17] MEDS ORDERED: NICOTINE POLACRILEX 2 MG LOZENGE BC PRN (09:17)
[2024-05-17] MEDS ORDERED: BISMUTH SUBSALICYLATE 524 MG/30 ML PO PRN (09:17)
[2024-05-17] MEDS ORDERED: MAG HYDROX/AL HYDROX/SIMETH 30 ML UNIT-DOSE CUP PO PRN (09:17)
[2024-05-17] MEDS ORDERED: IBUPROFEN 400 MG TABLET (FP) PO PRN (09:17)
[2024-05-17] MEDS ORDERED: NICOTINE POLACRILEX 2 MG GUM BUC PRN (09:17)
[2024-05-17] MEDS: PRENATAL VITAMINS W/ FOLIC ACID TABLET (FP) PO SCH (10:06)
[2024-05-17] MEDS ORDERED: chlordiazePOXIDE HCL 25 MG CAPSULE ONE (10:08)
[2024-05-17] MEDS: chlordiazePOXIDE HCL 25 MG CAPSULE PO SCH (10:11)
[2024-05-17] MEDS: SULFAMETHOXAZOLE/TRIMETHOPRIM 800MG/160MG D.S. TABLET PO SCH (10:47)
[2024-05-17] MEDS: METHOCARBAMOL 500 MG TABLET PO PRN (11:29)
[2024-05-17] MEDS ORDERED: cloNIDine HCL 0.1 MG TABLET PO PRN (12:35)
[2024-05-17] MEDS: GABAPENTIN 300 MG CAPSULE PO SCH (13:23)
[2024-05-17] MEDS: chlordiazePOXIDE HCL 25 MG CAPSULE PO PRN (13:24)
[2024-05-17] MEDS: hydrOXYzine PAMOATE 50 MG CAPSULE (FP) PO ONE (13:24)
[2024-05-17] MEDS: IBUPROFEN 600 MG TABLET (FP) PO PRN (17:18)
[2024-05-17] MEDS: THIAMINE 100 MG TABLET PO SCH (22:31)
[2024-05-17] MEDS: traZODone HCL 50 MG TABLET (FP) PO SCH (22:31)
[2024-05-17] MEDS: MELATONIN 5 MG TABLETS PO SCH (22:31)
[2024-05-18] MEDS ORDERED: methaDONE HCL 40 MG DISPERSABLE TABLET PO SCH (06:00)
[2024-05-18 11:07] LABS: HEMATOCRIT 36.1 % (35.4-49); HEMOGLOBIN 11.5 GM/dL (11.7-16.9); MCH 26.8 pg (25.7-33.7); MEAN CELL VOLUME 83.7 fl (80-96); MEAN PLT VOLUME 7.8 fl (7.5-11.1); PLATELET COUNT 236 10^3/uL (134-434); RBC 4.31 M/mm3 (4.00-5.60); RDW 16.8 % (11.9-15.9); WHITE BLOOD COUNT 4.9 K/mm3 (4.0-10.0)
[2024-05-18 11:11] LABS: CHLORIDE 110 mmol/L (98-107); SODIUM 141 mmol/L (136-145)
[2024-05-18 11:14] LABS: ALBUMIN 3.2 g/dl (3.4-5.0); CALCIUM 8.6 mg/dL (8.5-10.1)
[2024-05-18 11:15] LABS: ANION GAP 5 mmol/L (4-13); BLOOD UREA NITROGEN 18.6 mg/dL (7-18); CO2 26 mmol/L (21-32); GLUCOSE,RANDOM 130 mg/dL (74-106)
[2024-05-18 11:17] LABS: CREATININE 0.9 mg/dL (0.55-1.3); SGOT/AST 26 U/L (15-37)
[2024-05-18 11:19] LABS: BILIRUBIN,TOTAL 0.2 mg/dL (0.2-1); TOT PROT 6.8 g/dl (6.4-8.2)
[2024-05-18 11:20] LABS: ALK PHOS 128 U/L (45-117)
[2024-05-18 11:25] LABS: SGPT/ALT 50 U/L (13-61)
[2024-05-19] MEDS: chlordiazePOXIDE HCL 25 MG CAPSULE PO SCH (05:16)
[2024-05-19 13:45] VITALS: BP 115/56; PULSE 68; RESP 17; TEMP 97.6
[2024-05-19] MEDS: NALOXONE (NYS OPIOID OVERDOSE PROGRAM) 4 MG/0.1 ML SPRAY NS SCH (14:50)
[2024-05-20] MEDS ORDERED: chlordiazePOXIDE HCL 10 MG CAPSULE PO PRN
[2024-05-20] MEDS ORDERED: chlordiazePOXIDE HCL 10 MG CAPSULE PO SCH (05:00)
[2024-05-21] MEDS ORDERED: chlordiazePOXIDE HCL 10 MG CAPSULE PO SCH (05:00)
[2024-05-22] MEDS ORDERED: chlordiazePOXIDE HCL 10 MG CAPSULE PO ONE (05:00)
== END 2024-05-19 14:18 | disposition left against medical advice (07) | DRG 770 ==
LOC: YASAS 08:08 → Y6N 09:35
PROVIDERS: ADMIT Neuromusculoskeletal Medicine & OMM; ATTEND Surgery
PROC: HZ2ZZZZ Detoxification Services for Substance Abuse Treatment (ICD-10-PCS; principal; 2024-05-17)
DX: F10.230 Alcohol dependence with withdrawal, uncomplicated (principal); F11.20 Opioid dependence, uncomplicated; F14.20 Cocaine dependence, uncomplicated; F12.20 Cannabis dependence, uncomplicated; F17.210 Nicotine dependence, cigarettes, uncomplicated; F19.280 Other psychoactive substance dependence with psychoactive substance-induced anxiety disorder; F19.282 Other psychoactive substance dependence with psychoactive substance-induced sleep disorder; F19.24 Other psychoactive substance dependence with psychoactive substance-induced mood disorder; B18.2 Chronic viral hepatitis C; L02.414 Cutaneous abscess of left upper limb; Z62.810 Personal history of physical and sexual abuse in childhood; Z63.8 Other specified problems related to primary support group; Z88.0 Allergy status to penicillin
CPT/HCPCS: 36415; 80053; 80305; 80307; 85027; 86780

== ENCOUNTER 2024-09-01 12:48 | Inpatient (IN) | payer OTHER ==
[2024-09-01 13:21] VITALS: BMI 34.2
[2024-09-01] MEDS ORDERED: ONDANSETRON *ODT* 4 MG TABLET SL PRN (13:44)
[2024-09-01] MEDS ORDERED: IBUPROFEN 600 MG TABLET (FP) PO PRN (13:44)
[2024-09-01] MEDS ORDERED: NICOTINE POLACRILEX 2 MG LOZENGE BC PRN (13:44)
[2024-09-01] MEDS ORDERED: BENZOCAINE/MENTHOL (CHLORASEPTIC ) LOZENGE MM PRN (13:44)
[2024-09-01] MEDS ORDERED: ACETAMINOPHEN 325 MG TABLET (FP) PO PRN (13:44)
[2024-09-01] MEDS ORDERED: guaiFENesin 600 MG TABLET.ER (FP) PO PRN (13:44)
[2024-09-01] MEDS ORDERED: BENZONATATE 200 MG CAPSULE PO PRN (13:44)
[2024-09-01] MEDS ORDERED: NALOXONE (NARCAN) HCL 4 MG/0.1 ML SPRAY NS PRN (13:44)
[2024-09-01] MEDS ORDERED: MAGNESIUM HYDROX 2400MG/30ML ORAL SUSPENSION 30 ML CUP PO PRN (13:44)
[2024-09-01] MEDS ORDERED: DICYCLOMINE HCL 10 MG CAPSULE PO PRN (13:44)
[2024-09-01] MEDS ORDERED: P-EPHED 60MG/TRIPROLIDI 2.5MG TABLET PO PRN (13:44)
[2024-09-01] MEDS ORDERED: IBUPROFEN 400 MG TABLET (FP) PO PRN (13:44)
[2024-09-01] MEDS ORDERED: POLYETHYLENE GLYCOL (HEALTHYLAX) 3350 17 GM PACKET PO PRN (13:44)
[2024-09-01] MEDS ORDERED: MAG HYDROX/AL HYDROX/SIMETH 30 ML UNIT-DOSE CUP PO PRN (13:44)
[2024-09-01] MEDS ORDERED: NICOTINE POLACRILEX 2 MG GUM BUC PRN (13:44)
[2024-09-01] MEDS ORDERED: BISMUTH SUBSALICYLATE 262 MG/15 ML BTL PO PRN (13:44)
[2024-09-01] MEDS ORDERED: LOPERAMIDE HCL 2 MG CAPSULE PO PRN (13:44)
[2024-09-01] MEDS ORDERED: chlordiazePOXIDE HCL 25 MG CAPSULE ONE (14:38)
[2024-09-01] MEDS: chlordiazePOXIDE HCL 25 MG CAPSULE PO ONE (14:43)
[2024-09-01] MEDS: SULFAMETHOXAZOLE/TRIMETHOPRIM 800MG/160MG D.S. TABLET PO SCH (15:25)
[2024-09-01] MEDS: chlordiazePOXIDE HCL 25 MG CAPSULE PO SCH (17:17)
[2024-09-01] MEDS: METHOCARBAMOL 500 MG TABLET PO PRN (19:33)
[2024-09-01] MEDS ORDERED: MELATONIN 5 MG TABLETS PO SCH (22:00)
[2024-09-01] MEDS: GABAPENTIN 300 MG CAPSULE PO SCH (22:13)
[2024-09-01] MEDS: THIAMINE 100 MG TABLET PO SCH (22:13)
[2024-09-01] MEDS: SUVOREXANT 10 MG TABLET PO PRN (22:13)
[2024-09-02] MEDS: methaDONE HCL 40 MG DISPERSABLE TABLET PO SCH (06:01)
[2024-09-02] MEDS: PRENATAL VITAMINS W/ FOLIC ACID TABLET (FP) PO SCH (10:02)
[2024-09-02 11:49] LABS: POTASSIUM 4.1 mmol/L (3.5-5.1)
[2024-09-02 12:08] LABS: ALBUMIN 3.6 g/dl (3.4-5.0); BLOOD UREA NITROGEN 17.2 mg/dL (7-18)
[2024-09-02 12:09] LABS: CALCIUM 8.9 mg/dL (8.5-10.1)
[2024-09-02 12:11] LABS: CREATININE 1.2 mg/dL (0.55-1.3)
[2024-09-02 12:13] LABS: BILIRUBIN,TOTAL 0.4 mg/dL (0.2-1); TOT PROT 7.7 g/dl (6.4-8.2)
[2024-09-02] MEDS: chlordiazePOXIDE HCL 25 MG CAPSULE PO PRN (13:15)
[2024-09-02 13:43] LABS: HEMATOCRIT 36.2 % (40.1-51.0); HEMOGLOBIN 11.4 g/dL (13.7-17.5); MCHC 31.5 g/dl (32.3-36.5); MEAN PLT VOLUME 10.6 fl (9.4-12.4); PLATELET COUNT 345 x10^3/uL (163-337); RDW 15.2 % (12.0-15.6)
[2024-09-02] MEDS: hydrOXYzine PAMOATE 25 MG CAPSULE (FP) PO PRN (22:14)
[2024-09-03] MEDS: chlordiazePOXIDE HCL 25 MG CAPSULE PO SCH (05:59)
[2024-09-04] MEDS: chlordiazePOXIDE HCL 10 MG CAPSULE PO SCH (06:00)
[2024-09-04] MEDS: chlordiazePOXIDE HCL 10 MG CAPSULE PO PRN (13:56)
[2024-09-05] MEDS: chlordiazePOXIDE HCL 10 MG CAPSULE PO SCH (05:55)
[2024-09-06] MEDS: chlordiazePOXIDE HCL 10 MG CAPSULE PO ONE ×2 (06:00→14:24)
[2024-09-06 09:24] LABS: BILIRUBIN,DIRECT 0.1 mg/dL (0.0-0.2)
[2024-09-06 09:26] LABS: BILIRUBIN,TOTAL 0.3 mg/dL (0.2-1); TOT PROT 6.9 g/dl (6.4-8.2)
[2024-09-07] MEDS: chlordiazePOXIDE HCL 10 MG CAPSULE PO ONE (09:10)
[2024-09-07 17:42] VITALS: BP 102/64; PULSE 70; RESP 16; TEMP 97.5
== END 2024-09-07 18:13 | disposition other institution (70) | DRG 773 ==
LOC: YASAS 12:48 → Y6N 14:29
PROVIDERS: ADMIT Allergy & Immunology; ATTEND Allergy & Immunology
PROC: HZ2ZZZZ Detoxification Services for Substance Abuse Treatment (ICD-10-PCS; principal; 2024-09-01)
DX: F10.230 Alcohol dependence with withdrawal, uncomplicated (principal); F13.230 Sedative, hypnotic or anxiolytic dependence with withdrawal, uncomplicated; F11.20 Opioid dependence, uncomplicated; F14.20 Cocaine dependence, uncomplicated; F12.20 Cannabis dependence, uncomplicated; F17.210 Nicotine dependence, cigarettes, uncomplicated; F19.282 Other psychoactive substance dependence with psychoactive substance-induced sleep disorder; F19.280 Other psychoactive substance dependence with psychoactive substance-induced anxiety disorder; F19.24 Other psychoactive substance dependence with psychoactive substance-induced mood disorder; B18.2 Chronic viral hepatitis C; L03.113 Cellulitis of right upper limb; R94.5 Abnormal results of liver function studies; Z62.810 Personal history of physical and sexual abuse in childhood; Z63.8 Other specified problems related to primary support group
CPT/HCPCS: 36415; 80053; 80076; 80305; 80307; 85027; 86780; 87811; 93005; 93010

== ENCOUNTER 2024-09-07 18:16 | Inpatient (IN) | payer OTHER ==
[~2024-09-07 18:16] MED LIST changes: +BENZOCAINE/MENTHOL (CHLORASEPTIC ) LOZENGE MM PRN; +BENZONATATE 200 MG CAPSULE PO PRN; +IBUPROFEN 400 MG TABLET (FP) PO PRN; +IBUPROFEN 600 MG TABLET (FP) PO PRN; -MAGNESIUM CITRATE 300 ML BOTTLE PO PRN; +NALOXONE (NARCAN) HCL 4 MG/0.1 ML SPRAY NS PRN; +NICOTINE POLACRILEX 2 MG GUM BUC PRN; +NICOTINE POLACRILEX 2 MG LOZENGE BC PRN; -P-EPHED 60MG/TRIPROLIDI 2.5MG TABLET PO PRN; +POLYETHYLENE GLYCOL (HEALTHYLAX) 3350 17 GM PACKET PO PRN; -guaiFENesin 200 MG/10 ML 10 ML UNIT-DOSE CUPS PO PRN; +guaiFENesin 600 MG TABLET.ER (FP) PO PRN
[2024-09-07] MEDS: hydrOXYzine PAMOATE 25 MG CAPSULE (FP) PO PRN (19:11)
[2024-09-07] MEDS: MELATONIN 5 MG TABLETS PO SCH (21:25)
[2024-09-07] MEDS: THIAMINE 100 MG TABLET PO SCH (21:25)
[2024-09-07] MEDS: SULFAMETHOXAZOLE/TRIMETHOPRIM 800MG/160MG D.S. TABLET PO SCH (21:26)
[2024-09-07] MEDS: GABAPENTIN 300 MG CAPSULE PO SCH (21:26)
[2024-09-08] MEDS: methaDONE HCL 40 MG DISPERSABLE TABLET PO SCH (05:47)
[2024-09-08] MEDS ORDERED: methaDONE HCL 10 MG TABLET PO SCH (06:00)
[2024-09-08] MEDS: PRENATAL VITAMINS W/ FOLIC ACID TABLET (FP) PO SCH (09:55)
[2024-09-08] MEDS: METHOCARBAMOL 500 MG TABLET PO PRN (09:56)
[2024-09-08] MEDS: SUVOREXANT 10 MG TABLET PO PRN (21:09)
[2024-09-10] MEDS: SUVOREXANT 10 MG TABLET PO PRN (21:04)
[2024-09-11] MEDS ORDERED: FERROUS SO4 325 MG TABLET (FP) PO SCH (10:00)
[2024-09-11] MEDS ORDERED: methaDONE HCL 10 MG TABLET PO SCH (18:00)
[2024-09-12] MEDS ORDERED: methaDONE HCL 40 MG DISPERSABLE TABLET PO SCH (06:00)
[2024-09-12] MEDS: FERROUS SO4 325 MG TABLET (FP) PO SCH (07:50)
[2024-09-12] MEDS: SUVOREXANT 10 MG TABLET PO PRN (21:10)
[2024-09-14] MEDS ORDERED: methaDONE HCL 40 MG DISPERSABLE TABLET PO SCH (13:42)
[2024-09-14] MEDS ORDERED: SUVOREXANT 10 MG TABLET PO PRN (22:00)
[2024-09-15 05:24] VITALS: RESP 16; TEMP 96.9
[2024-09-15] MEDS: SUVOREXANT 10 MG TABLET PO PRN (21:34)
[2024-09-16 05:30] VITALS: BP 132/89; PULSE 69
== END 2024-09-16 09:04 | disposition home or self-care (01) | DRG 772 ==
LOC: YASAS 18:16 → Y3W 18:17
PROVIDERS: ADMIT Psychiatry & Neurology Pain Medicine; ATTEND Psychiatry & Neurology Pain Medicine
PROC: HZ42ZZZ Group Counseling for Substance Abuse Treatment, Cognitive-Behavioral (ICD-10-PCS; principal; 2024-09-07)
DX: F11.20 Opioid dependence, uncomplicated (principal); F10.20 Alcohol dependence, uncomplicated; F13.20 Sedative, hypnotic or anxiolytic dependence, uncomplicated; F14.10 Cocaine abuse, uncomplicated; F12.20 Cannabis dependence, uncomplicated; F17.210 Nicotine dependence, cigarettes, uncomplicated; F41.9 Anxiety disorder, unspecified; D64.9 Anemia, unspecified; G47.00 Insomnia, unspecified; B18.2 Chronic viral hepatitis C

== ENCOUNTER 2024-10-17 12:59 | Inpatient (IN) | payer OTHER ==
[2024-10-17 13:24] VITALS: BMI 38.0
[2024-10-17] MEDS ORDERED: IBUPROFEN 400 MG TABLET (FP) PO PRN (13:52)
[2024-10-17] MEDS ORDERED: ONDANSETRON *ODT* 4 MG TABLET SL PRN (13:52)
[2024-10-17] MEDS ORDERED: POLYETHYLENE GLYCOL (HEALTHYLAX) 3350 17 GM PACKET PO PRN (13:52)
[2024-10-17] MEDS ORDERED: ACETAMINOPHEN 325 MG TABLET (FP) PO PRN (13:52)
[2024-10-17] MEDS ORDERED: NICOTINE POLACRILEX 2 MG GUM BUC PRN (13:52)
[2024-10-17] MEDS ORDERED: BISMUTH SUBSALICYLATE 524 MG/30 ML PO PRN (13:52)
[2024-10-17] MEDS ORDERED: MAG HYDROX/AL HYDROX/SIMETH 30 ML UNIT-DOSE CUP PO PRN (13:52)
[2024-10-17] MEDS ORDERED: BENZOCAINE/MENTHOL (CHLORASEPTIC ) LOZENGE MM PRN (13:52)
[2024-10-17] MEDS ORDERED: guaiFENesin 600 MG TABLET.ER (FP) PO PRN (13:52)
[2024-10-17] MEDS ORDERED: NICOTINE POLACRILEX 2 MG LOZENGE BC PRN (13:52)
[2024-10-17] MEDS ORDERED: P-EPHED 60MG/TRIPROLIDI 2.5MG TABLET PO PRN (13:52)
[2024-10-17] MEDS ORDERED: MAGNESIUM HYDROX 2400MG/30ML ORAL SUSPENSION 30 ML CUP PO PRN (13:52)
[2024-10-17] MEDS ORDERED: DICYCLOMINE HCL 10 MG CAPSULE PO PRN (13:52)
[2024-10-17] MEDS ORDERED: LOPERAMIDE HCL 2 MG CAPSULE PO PRN (13:52)
[2024-10-17] MEDS ORDERED: NALOXONE (NARCAN) HCL 4 MG/0.1 ML SPRAY NS PRN (13:52)
[2024-10-17] MEDS ORDERED: BENZONATATE 200 MG CAPSULE PO PRN (13:52)
[2024-10-17] MEDS: METHOCARBAMOL 500 MG TABLET PO PRN (15:03)
[2024-10-17] MEDS: chlordiazePOXIDE HCL 25 MG CAPSULE PO ONE (20:36)
[2024-10-17] MEDS: MELATONIN 5 MG TABLETS PO SCH (22:22)
[2024-10-17] MEDS: chlordiazePOXIDE HCL 25 MG CAPSULE PO SCH (22:22)
[2024-10-17] MEDS: THIAMINE 100 MG TABLET PO SCH (22:22)
[2024-10-18 09:20] LABS: POTASSIUM 4.6 mmol/L (3.5-5.1)
[2024-10-18 09:24] LABS: BLOOD UREA NITROGEN 14.6 mg/dL (7-18); CALCIUM 8.6 mg/dL (8.5-10.1)
[2024-10-18 09:26] LABS: CREATININE 0.8 mg/dL (0.55-1.3)
[2024-10-18 09:27] LABS: BILIRUBIN,TOTAL 0.4 mg/dL (0.2-1); TOT PROT 6.9 g/dl (6.4-8.2)
[2024-10-18] MEDS: PRENATAL VITAMINS W/ FOLIC ACID TABLET (FP) PO SCH (10:33)
[2024-10-18] MEDS: methaDONE HCL 10 MG TABLET PO SCH (11:01)
[2024-10-18] MEDS: GABAPENTIN 300 MG CAPSULE PO SCH (13:54)
[2024-10-18] MEDS: chlordiazePOXIDE HCL 25 MG CAPSULE PO PRN (19:58)
[2024-10-18] MEDS: SUVOREXANT 10 MG TABLET PO PRN (22:10)
[2024-10-19] MEDS: chlordiazePOXIDE HCL 25 MG CAPSULE PO SCH (05:36)
[2024-10-19] MEDS ORDERED: methaDONE HCL 10 MG TABLET PO SCH (09:30)
[2024-10-19] MEDS: methaDONE HCL 40 MG DISPERSABLE TABLET PO SCH (09:38)
[2024-10-19 11:37] LABS: ABSOLUTE IMMATURE GRANULOCYTES 0.03 x10^3/uL (0.0-0.031); BASOPHILS # 0.01 x10^3/uL (0.01-0.08); EOSINOPHIL % 1.6 % (0.8-7.0); EOSINOPHILS # 0.08 x10^3/uL (0.04-0.54); HEMATOCRIT 38.6 % (40.1-51.0); HEMOGLOBIN 12.2 g/dL (13.7-17.5); MCHC 31.6 g/dl (32.3-36.5); MEAN CELL VOLUME 84.3 fl (79.0-92.2); MEAN PLT VOLUME 10.8 fl (9.4-12.4); MONOCYTE # 0.45 x10^3/uL (0.30-0.82); PLATELET COUNT 175 x10^3/uL (163-337); RDW 15.9 % (12.0-15.6)
[2024-10-20] MEDS: chlordiazePOXIDE HCL 10 MG CAPSULE PO SCH (05:40)
[2024-10-20] MEDS: chlordiazePOXIDE HCL 10 MG CAPSULE PO PRN (14:11)
[2024-10-20] MEDS: IBUPROFEN 600 MG TABLET (FP) PO PRN (21:45)
[2024-10-21] MEDS: chlordiazePOXIDE HCL 10 MG CAPSULE PO SCH (05:50)
[2024-10-21] MEDS: hydrOXYzine PAMOATE 25 MG CAPSULE (FP) PO PRN (17:22)
[2024-10-21] MEDS: MIRTAZAPINE 15 MG TABLET (FP) PO SCH (21:45)
[2024-10-22] MEDS: chlordiazePOXIDE HCL 10 MG CAPSULE PO ONE (05:33)
[2024-10-22 13:49] VITALS: BP 113/60; PULSE 80; RESP 16; TEMP 97.6
== END 2024-10-22 17:40 | disposition other institution (70) | DRG 773 ==
LOC: YASAS 12:59 → Y6N 14:22
PROVIDERS: ADMIT Allergy & Immunology; ATTEND Allergy & Immunology
PROC: HZ2ZZZZ Detoxification Services for Substance Abuse Treatment (ICD-10-PCS; principal; 2024-10-17)
DX: F10.230 Alcohol dependence with withdrawal, uncomplicated (principal); F11.20 Opioid dependence, uncomplicated; F14.20 Cocaine dependence, uncomplicated; F17.210 Nicotine dependence, cigarettes, uncomplicated; F19.282 Other psychoactive substance dependence with psychoactive substance-induced sleep disorder; F19.280 Other psychoactive substance dependence with psychoactive substance-induced anxiety disorder; F41.9 Anxiety disorder, unspecified; G47.00 Insomnia, unspecified; Z62.810 Personal history of physical and sexual abuse in childhood; Z63.8 Other specified problems related to primary support group
CPT/HCPCS: 36415; 80053; 80305; 80307; 82247; 85025; 86780; 87811